=== PATIENT | female | born 1945 | race Asian ===

== ENCOUNTER 2018-03-20 15:30 | Inpatient (IN) | payer MEDICARE, OTHER ==
[~2018-03-20] VITALS: Ht 149.9 cm; Wt 55.5 kg
[~2018-03-20 15:30] MED LIST: ALPR0.5T; ASPI81CH43; LEVO750T2; LISI-275; MECL25TA94; METF500T5; MONT10TA23; TELM80TA
[2018-03-20] MEDS ORDERED: methylPREDNISolone SOD SUCC 125 MG/2 ML VL IM ONE (16:15)
[2018-03-20] MEDS ORDERED: ALBUTEROL SULF 2.5 MG/0.5ML(0.5%) NEB SOLN NEB ONE (16:15)
[2018-03-20] MEDS ORDERED: IPRATROPIUM BROM 0.5 MG/2.5ML INH SOL NEB ONE (16:15)
[2018-03-20] MEDS ORDERED: methylPREDNISolone SOD SUCC 125 MG/2 ML VL ONE (17:02)
[2018-03-20 17:09] LABS: Basophils # (auto) 0 uL; Basophils % (auto) 0.6 % (0.0-2.0); Eosinophils # (auto) 0.2 uL; Eosinophils % (auto) 2.9 % (0.0-7.0); Hematocrit 39.7 % (36.0-46.0); Hemoglobin 13.5 g/dL (12.2-16.2); Lymphocytes % (auto) 12.5 % (10.0-50.0); Mean Corpuscular Hgb Conc. 33.9 g/dL (32.0-36.0); Mean Corpuscular Volume 91.5 fL (80.0-100.0); Monocytes # (auto) 0.7 uL; Monocytes % (auto) 8.7 % (0.0-12.0); Neutrophils # (auto) 5.9 uL; Neutrophils % (auto) 75.3 % (37.0-80.0); Nucleated Red Blood Cells % 0.1 %; Platelet Count (auto) 162 10^3/uL (140-450); Red Blood Cells 4.34 10^6/uL (4.0-5.20); White Blood Cell 7.8 10^3/uL (4.4-10.8)
[2018-03-20 17:17] LABS: Chloride 107 mmol/L (98-107); Potassium 3.6 mmol/L (3.5-5.1); Sodium 142 mmol/L (136-145)
[2018-03-20 17:24] LABS: Alanine Aminotransferase 22 U/L (13-56); Albumin 3.2 g/dL (3.4-5.0); Anion Gap 7 (5-15); Aspartate Aminotransferase 18 U/L (15-37); BUN/Creatinine Ratio 19.6; Blood Urea Nitrogen 20 mg/dL (7-18); Calcium 8.5 mg/dL (8.5-10.1); Carbon Dioxide 28 mmol/L (21-32); GFR African American 68 mL/min; GFR Non-African American 56 mL/min; Glucose 143 mg/dL (74-106)
[2018-03-20 17:28] LABS: Alkaline Phosphatase 64 U/L (45-117); Bilirubin, Total 0.6 mg/dL (0.2-1.0); Total Protein 6.9 g/dL (6.4-8.2)
[2018-03-20] MEDS ORDERED: LEVOFLOXACIN 500MG 100 ML IV ONE (18:30)
[2018-03-20] MEDS ORDERED: DEXTROSE (50%) 50ML SYRG IV PRN (18:45)
[2018-03-20] MEDS ORDERED: DOCUSATE SOD 100 MG CAP PO PRN (18:45)
[2018-03-20] MEDS ORDERED: ONDANSETRON HCL 4 MG/2 ML VIAL IV PRN (18:45)
[2018-03-20] MEDS ORDERED: MORPHINE SULFATE 8mg/ml INJ SDV IV PRN ×2 (18:45)
[2018-03-20] MEDS ORDERED: TEMAZEPAM 15 MG CAP PO PRN (18:45)
[2018-03-20] MEDS ORDERED: NITROGLYCERIN 0.4 MG SL TAB SL PRN (18:45)
[2018-03-20] MEDS ORDERED: HYDROcodone-ACET 5/325MG TAB PO PRN (18:45)
[2018-03-20 20:45] VITALS: BP 153/74
[2018-03-20] MEDS: DONEPEZIL HYDROCHLORIDE 5 MG TAB PO SCH (21:10)
[2018-03-20] MEDS: ATORVASTATIN 20 MG TAB PO SCH (21:10)
[2018-03-20] MEDS: ACCU-CHEK COMFORT CURVE STRIP VI SCH (21:11)
[2018-03-20] MEDS: SODIUM CHLOR 0.9% PF (SALINE LOCK) 10ML VIAL/SYR IV SCH (21:17)
[2018-03-20] MEDS: InsuLIN REG 1unit/0.01ml Soln (100units/ml) SC SCH (21:18)
[2018-03-20] MEDS: ALBUTEROL SULF 2.5 MG/0.5ML(0.5%) NEB SOLN NEB SCH (22:23)
[2018-03-20] MEDS: BUDESONIDE (INHALATION) 0.5 MG/2 ML NEB NEB SCH (22:23)
[2018-03-20] MEDS: IPRATROPIUM BROM 0.5 MG/2.5ML INH SOL NEB SCH (22:23)
[2018-03-20] MEDS: methylPREDNISolone SOD SUCC 40 MG/ML VL IV SCH (23:54)
[2018-03-21] VITALS (8 sets, daily range): BP systolic 107–188; BP diastolic 65–85
[2018-03-21] MEDS ORDERED: ATOR40TA52 PO (00:04)
[2018-03-21] MEDS ORDERED: CLON0.1T PO (00:05)
[2018-03-21] MEDS ORDERED: LOSA25TA9 PO (00:05)
[2018-03-21] MEDS ORDERED: DONE5TAB31 PO (00:05)
[2018-03-21] MEDS: ALBUTEROL SULF 2.5 MG/0.5ML(0.5%) NEB SOLN NEB SCH ×4 (02:17→19:25)
[2018-03-21] MEDS: IPRATROPIUM BROM 0.5 MG/2.5ML INH SOL NEB SCH ×4 (02:17→19:25)
[2018-03-21 05:16] LABS: Urine Bacteria NONE SEEN /hpf (None Seen); Urine Blood Negative /uL (Negative); Urine WBC 1 /hpf (0 - 5)
[2018-03-21 05:58] LABS: Hematocrit 39.4 % (36.0-46.0); Hemoglobin 13.6 g/dL (12.2-16.2); Mean Corpuscular Hemoglobin 31.3 pg (28.0-32.0); Mean Corpuscular Hgb Conc. 34.5 g/dL (32.0-36.0); Mean Corpuscular Volume 90.6 fL (80.0-100.0); Platelet Count (auto) 161 10^3/uL (140-450); Red Blood Cells 4.35 10^6/uL (4.0-5.20); Red Cell Distribution Width 13.3 % (11.8-14.3); White Blood Cell 7.9 10^3/uL (4.4-10.8)
[2018-03-21 06:18] LABS: Band Neutrophils % (manual) 0; Basophils % (manual) 0 (0.0-2.0); Blast Cells 0; Eosinophils % (manual) 0 (0-7); Metamyelocytes % 0; Myelocytes % 0; Promyelocytes % 0; Reactive Lymphocytes 0
[2018-03-21 06:19] LABS: Albumin 3.2 g/dL (3.4-5.0); BUN/Creatinine Ratio 27.4; Bilirubin, Total 0.6 mg/dL (0.2-1.0); Calcium 8.6 mg/dL (8.5-10.1); Potassium 3.6 mmol/L (3.5-5.1); Total Protein 6.9 g/dL (6.4-8.2)
[2018-03-21] MEDS: BUDESONIDE (INHALATION) 0.5 MG/2 ML NEB NEB SCH ×2 (06:21→19:25)
[2018-03-21] MEDS: ACCU-CHEK COMFORT CURVE STRIP VI SCH ×4 (06:22→21:42)
[2018-03-21] MEDS: SODIUM CHLOR 0.9% PF (SALINE LOCK) 10ML VIAL/SYR IV SCH ×3 (06:22→21:43)
[2018-03-21] MEDS: methylPREDNISolone SOD SUCC 40 MG/ML VL IV SCH ×3 (06:22→17:13)
[2018-03-21] MEDS: InsuLIN REG 1unit/0.01ml Soln (100units/ml) SC SCH ×4 (06:27→21:49)
[2018-03-21] MEDS: LOSARTAN POTASSIUM 25 MG TAB PO SCH (09:20)
[2018-03-21] MEDS: MULTIPLE VITAMIN TAB PO SCH (09:21)
[2018-03-21 09:31] LABS: Lymphocytes % (manual) 9 (10.0-50.0); Monocytes % (manual) 1 (0-12)
[2018-03-21] MEDS: Boost Glucose Control 8 Ounces PO SCH ×3 (12:11→18:00)
[2018-03-21] MEDS: ACETAMINOPHEN 325 MG TAB PO PRN (14:46)
[2018-03-21] MEDS ORDERED: LEVOFLOXACIN 250MG 50 ML IV SCH (18:00)
[2018-03-21] MEDS: ATORVASTATIN 20 MG TAB PO SCH (21:39)
[2018-03-21] MEDS: DONEPEZIL HYDROCHLORIDE 5 MG TAB PO SCH (21:40)
[2018-03-21] MEDS: predniSONE 20 MG TAB PO SCH (21:40)
[2018-03-21] MEDS: cloNIDine HCL 0.1 MG TAB PO PRN (21:41)
[2018-03-22 05:14] VITALS: BP 154/69
[2018-03-22] MEDS: BUDESONIDE (INHALATION) 0.5 MG/2 ML NEB NEB SCH ×3 (06:22→18:59)
[2018-03-22] MEDS: IPRATROPIUM BROM 0.5 MG/2.5ML INH SOL NEB SCH ×5 (06:22→18:58)
[2018-03-22] MEDS: ALBUTEROL SULF 2.5 MG/0.5ML(0.5%) NEB SOLN NEB SCH ×5 (06:22→18:59)
[2018-03-22] MEDS: SODIUM CHLOR 0.9% PF (SALINE LOCK) 10ML VIAL/SYR IV SCH ×3 (06:26→22:00)
[2018-03-22] MEDS: InsuLIN REG 1unit/0.01ml Soln (100units/ml) SC SCH ×4 (06:26→22:12)
[2018-03-22] MEDS: ACCU-CHEK COMFORT CURVE STRIP VI SCH ×4 (06:26→22:00)
[2018-03-22 08:00] VITALS: BP 127/65
[2018-03-22] MEDS: Boost Glucose Control 8 Ounces PO SCH ×3 (08:00→18:10)
[2018-03-22 09:00] VITALS: BP 127/65
[2018-03-22] MEDS: predniSONE 20 MG TAB PO SCH ×2 (09:54→22:10)
[2018-03-22] MEDS: LOSARTAN POTASSIUM 25 MG TAB PO SCH (09:57)
[2018-03-22] MEDS: MULTIPLE VITAMIN TAB PO SCH (09:57)
[2018-03-22] MEDS ORDERED: LEVOFLOXACIN 500 MG TAB PO SCH (10:00)
[2018-03-22] MEDS ORDERED: LEVOFLOXACIN 500 MG TAB PO ONE (12:00)
[2018-03-22 13:00] VITALS: BP 179/78
[2018-03-22 17:00] VITALS: BP 165/94
[2018-03-22] MEDS: guaiFENesin 200 MG/10 ML UD GT SCH ×2 (18:00→23:14)
[2018-03-22] MEDS: cloNIDine HCL 0.1 MG TAB PO PRN (18:17)
[2018-03-22 20:59] VITALS: BP 129/63
[2018-03-22] MEDS: ATORVASTATIN 20 MG TAB PO SCH (21:53)
[2018-03-22] MEDS: DONEPEZIL HYDROCHLORIDE 5 MG TAB PO SCH (21:53)
[2018-03-23 04:52] VITALS: BP 147/73
[2018-03-23] MEDS: InsuLIN REG 1unit/0.01ml Soln (100units/ml) SC SCH ×3 (05:49→17:00)
[2018-03-23] MEDS: SODIUM CHLOR 0.9% PF (SALINE LOCK) 10ML VIAL/SYR IV SCH ×2 (05:51→14:13)
[2018-03-23] MEDS: ALBUTEROL SULF 2.5 MG/0.5ML(0.5%) NEB SOLN NEB SCH ×3 (06:18→14:08)
[2018-03-23] MEDS: IPRATROPIUM BROM 0.5 MG/2.5ML INH SOL NEB SCH ×3 (06:18→14:08)
[2018-03-23] MEDS: BUDESONIDE (INHALATION) 0.5 MG/2 ML NEB NEB SCH (06:19)
[2018-03-23] MEDS: ACCU-CHEK COMFORT CURVE STRIP VI SCH ×3 (06:30→17:00)
[2018-03-23] MEDS: guaiFENesin 200 MG/10 ML UD GT SCH ×4 (06:33→18:00)
[2018-03-23 09:00] VITALS: BP 145/79
[2018-03-23] MEDS ORDERED: LEVOFLOXACIN 500 MG TAB PO SCH (10:00)
[2018-03-23] MEDS: predniSONE 20 MG TAB PO SCH (10:07)
[2018-03-23] MEDS: LOSARTAN POTASSIUM 25 MG TAB PO SCH (10:08)
[2018-03-23] MEDS: MULTIPLE VITAMIN TAB PO SCH (10:09)
[2018-03-23] MEDS: ACETAMINOPHEN 325 MG TAB PO PRN ×2 (10:10→12:22)
[2018-03-23] MEDS: Boost Glucose Control 8 Ounces PO SCH ×3 (10:42→18:23)
[2018-03-23 12:32] VITALS: BP 147/78
[2018-03-23 17:05] VITALS: BP 153/87
[2018-03-23 17:18] VITALS: BP 145/79
== END 2018-03-23 18:10 | disposition home or self-care (01) | DRG 202 ==
LOC: ER 15:30 → TELE 15:31 → TELE-WESTW 20:40
PROVIDERS: ADMIT Internal Medicine; ATTEND Internal Medicine Pulmonary Disease
DX: J45.901 Unspecified asthma with (acute) exacerbation (principal); E44.0 Moderate protein-calorie malnutrition; E11.21 Type 2 diabetes mellitus with diabetic nephropathy; J20.9 Acute bronchitis, unspecified; R91.1 Solitary pulmonary nodule; E11.22 Type 2 diabetes mellitus with diabetic chronic kidney disease; E78.5 Hyperlipidemia, unspecified; N18.3 Chronic kidney disease, stage 3 (moderate); I11.9 Hypertensive heart disease without heart failure; I70.0 Atherosclerosis of aorta; I25.10 Atherosclerotic heart disease of native coronary artery without angina pectoris; Z95.5 Presence of coronary angioplasty implant and graft; Z68.24 Body mass index [BMI] 24.0-24.9, adult; Z83.3 Family history of diabetes mellitus; Z90.722 Acquired absence of ovaries, bilateral; Z88.1 Allergy status to other antibiotic agents; Z82.49 Family history of ischemic heart disease and other diseases of the circulatory system
CPT/HCPCS: 36415; 71046; 71250; 80053; 81001; 82962; 83036; 84443; 84484; 85007; 85025; 85027; 87070; 87077; 87186; 87205; 93005; 93306; 94640; 94761; 96365; 96367; 96375; 99291; J1815; J1956

== ENCOUNTER 2021-09-01 10:46 | Inpatient (IN) | payer MEDICARE, OTHER ==
[~2021-09-01] VITALS: Ht 144.8 cm; Wt 50.5 kg
[~2021-09-01 10:46] MED LIST changes: -ALPR0.5T; -ASPI81CH43; +ATOR40TA52 PO; +CLON0.1T PO; +DONE5TAB80 PO; -LEVO750T2; -LISI-275; +LOSA25TA38 PO; -MECL25TA94; +METF-916; -METF500T5; -MONT10TA23; -TELM80TA
[2021-09-01 12:27] LABS: Basophils # (auto) 0.1 10 ^3/uL (0-0.2); Basophils % (auto) 0.7 % (0.0-2.0); Eosinophils # (auto) 0.4 10 ^3/uL (0-0.8); Hematocrit 40.6 % (36.0-46.0); Hemoglobin 14.1 g/dL (12.2-16.2); Lymphocytes # (auto) 1.6 10 ^3/uL (0.4-5.4); Lymphocytes % (auto) 21.6 % (10.0-50.0); Mean Corpuscular Hemoglobin 31.7 pg (28.0-32.0); Mean Corpuscular Hgb Conc. 34.8 g/dL (32.0-36.0); Mean Corpuscular Volume 91.1 fL (80.0-100.0); Monocytes # (auto) 1.1 10 ^3/uL (0-1.3); Monocytes % (auto) 15.5 % (0.0-12.0); Neutrophils # (auto) 4.1 10 ^3/uL (1.6-8.6); Neutrophils % (auto) 56.2 % (37.0-80.0); Nucleated Red Blood Cells % 0.1 %; Red Blood Cells 4.46 10^6/uL (4.0-5.20); Red Cell Distribution Width 12.8 % (11.8-14.3); White Blood Cell 7.3 10^3/uL (4.4-10.8)
[2021-09-01 12:37] LABS: Albumin 3.3 g/dL (3.4-5.0); Calcium 8.4 mg/dL (8.5-10.1); Potassium 3.2 mmol/L (3.5-5.1)
[2021-09-01 12:42] LABS: Bilirubin, Total 0.6 mg/dL (0.2-1.0); Total Protein 7.8 g/dL (6.4-8.2)
[2021-09-01] MEDS ORDERED: NITROGLYCERIN 0.4 MG SL TAB SL PRN ×2 (15:30→16:45)
[2021-09-01] MEDS ORDERED: MORPHINE SULFATE INJECTION 2 MG/ML SYRG IV PRN ×3 (15:30→16:45)
[2021-09-01] MEDS ORDERED: POTASSIUM CHLORIDE 40 MEQ, LIDOCAINE 1% (LOCAL ANESTH.) 4 ML in SODIUM CHL 0.9% 250 ML IV ONE (15:30)
[2021-09-01] MEDS ORDERED: MAGNESIUM SULFATE 1GM/100ML 100 ML IV ONE (15:30)
[2021-09-01] MEDS ORDERED: ENOXAPARIN SOD 60 MG/0.6 ML SYRINGE SC ONE (16:00)
[2021-09-01] MEDS ORDERED: LORazepam 0.5 MG TAB PO PRN (16:45)
[2021-09-01] MEDS ORDERED: REMDESIVIR PER PHARMACY 0 ML IV SCH (16:45)
[2021-09-01] MEDS ORDERED: BUDESONIDE (INHALATION) 0.5 MG/2 ML NEB NEB ONE (16:45)
[2021-09-01] MEDS ORDERED: DOCUSATE SOD 100 MG CAP PO PRN (16:45)
[2021-09-01] MEDS ORDERED: ALBUTEROL SULF 2.5 MG/0.5ML(0.5%) NEB SOLN NEB ONE (16:45)
[2021-09-01] MEDS ORDERED: HYDROcodone-ACET 5/325MG TAB PO PRN (16:45)
[2021-09-01] MEDS ORDERED: IPRATROPIUM BROM 0.5 MG/2.5ML INH SOL NEB ONE (16:45)
[2021-09-01] MEDS ORDERED: ONDANSETRON HCL 4 MG/2 ML VIAL IV PRN (16:45)
[2021-09-01] MEDS ORDERED: ALUM & MAG HYDROX-SIMETH LIQ(MAALOX) 30 ML PO PRN (16:45)
[2021-09-01] MEDS ORDERED: ALBUTEROL SULF 2.5 MG/0.5ML(0.5%) NEB SOLN NEB PRN (16:45)
[2021-09-01] MEDS ORDERED: ACETAMINOPHEN 325 MG TAB PO PRN (16:45)
[2021-09-01] MEDS ORDERED: AZITHROMYCIN 500MG/ 250ML 250 ML IV ONE (16:45)
[2021-09-01] MEDS ORDERED: SODIUM CHLORIDE 0.9% 1,000 ML IV SCH (17:00)
[2021-09-01] MEDS ORDERED: FAMOTIDINE (10MG/ML) 2ML VL IV ONE (17:00)
[2021-09-01] MEDS ORDERED: ATORVASTATIN 20 MG TAB PO ONE (17:00)
[2021-09-01] MEDS ORDERED: ASPirin 81 mg TAB PO ONE (17:00)
[2021-09-01] MEDS ORDERED: DEXTROSE (50%) 50ML SYRG IV PRN (17:00)
[2021-09-01] MEDS ORDERED: ALBUMIN 25% 100 ML IV ONE (17:00)
[2021-09-01] MEDS ORDERED: hydrALAZINE HCL 20 MG/ML VL IV PRN (17:00)
[2021-09-01] MEDS ORDERED: IPRATROPIUM BROM 0.5 MG/2.5ML INH SOL NEB SCH (18:00)
[2021-09-01] MEDS ORDERED: REMDESIVIR 200 MG in NS 210ml LOADING DOSE ADULT IV ONE (18:30)
[2021-09-01] MEDS: ACCU-CHEK COMFORT CURVE STRIP VI SCH ×2 (18:33→22:18)
[2021-09-01] MEDS: InsuLIN REG 1unit/0.01ml Soln (100units/ml) SC SCH ×2 (18:36→22:18)
[2021-09-01 18:59] LABS: Basophils # (auto) 0.1 10 ^3/uL (0-0.2); Eosinophils # (auto) 0.5 10 ^3/uL (0-0.8); Eosinophils % (auto) 6.3 % (0.0-7.0); Hematocrit 40.5 % (36.0-46.0); Hemoglobin 13.9 g/dL (12.2-16.2); Lymphocytes # (auto) 1.4 10 ^3/uL (0.4-5.4); Lymphocytes % (auto) 19.2 % (10.0-50.0); Mean Corpuscular Hemoglobin 31.1 pg (28.0-32.0); Mean Corpuscular Hgb Conc. 34.4 g/dL (32.0-36.0); Mean Corpuscular Volume 90.4 fL (80.0-100.0); Monocytes % (auto) 12.9 % (0.0-12.0); Neutrophils # (auto) 4.5 10 ^3/uL (1.6-8.6); Neutrophils % (auto) 60.6 % (37.0-80.0); Nucleated Red Blood Cells % 0.2 %; Red Blood Cells 4.48 10^6/uL (4.0-5.20); Red Cell Distribution Width 12.9 % (11.8-14.3); White Blood Cell 7.4 10^3/uL (4.4-10.8)
[2021-09-01 19:17] LABS: Albumin 3.3 g/dL (3.4-5.0)
[2021-09-01 19:23] LABS: Cholesterol 141 mg/dL (< 200); HDL Cholesterol 68 mg/dL (40-59); LDL Cholesterol 67 mg/dL (< 100); Triglycerides 88 mg/dL (< 150)
[2021-09-01 19:25] LABS: Bilirubin, Total 0.7 mg/dL (0.2-1.0); CRP High Sensitivity 2.81 mg/dL (< 0.3); Total Protein 7.6 g/dL (6.4-8.2)
[2021-09-01 19:31] LABS: Urine Bacteria NONE SEEN /hpf (None Seen); Urine Blood Negative /uL (Negative); Urine Hyaline Cast FEW /lpf (0 - 2); Urine WBC 1 /hpf (0 - 5)
[2021-09-01 19:44] LABS: Potassium 2.9 mmol/L (3.5-5.1)
[2021-09-01] MEDS: FUROSEMIDE 20 MG/2 ML VIAL IV SCH (19:47)
[2021-09-01 19:50] LABS: Alcohol, Urine < 3.0 mg/dL (0-10); Amphetamine Screen, Urine NEGATIVE (NEGATIVE); Barbiturate Scree,Urine NEGATIVE (NEGATIVE); Benzodiazephine Screen, Urine NEGATIVE (NEGATIVE); Cannabinoid Screen, Urine NEGATIVE (NEGATIVE); Cocaine Screen, Urine NEGATIVE (NEGATIVE); Opiate Scree,Urine NEGATIVE (NEGATIVE); Phencyclidine Screen, Urine NEGATIVE (NEGATIVE)
[2021-09-01 20:09] LABS: Thyroid Stimulating Hormone 0.34 uIU/mL (0.358-3.74)
[2021-09-01] MEDS ORDERED: BUDESONIDE (INHALATION) 0.5 MG/2 ML NEB NEB SCH (22:00)
[2021-09-01] MEDS: POTASSIUM CHL 20 Meq TABLET PO SCH (22:17)
[2021-09-02] VITALS (7 sets, daily range): BP systolic 116–156; BP diastolic 64–91
[2021-09-02] MEDS ORDERED: ATOR20TA PO (04:57)
[2021-09-02] MEDS ORDERED: AMLO-489 PO (04:57)
[2021-09-02] MEDS: FUROSEMIDE 20 MG/2 ML VIAL IV SCH (05:28)
[2021-09-02] MEDS: ACCU-CHEK COMFORT CURVE STRIP VI SCH ×4 (05:29→21:28)
[2021-09-02] MEDS ORDERED: FAMOTIDINE (10MG/ML) 2ML VL IV SCH (06:00)
[2021-09-02] MEDS: InsuLIN REG 1unit/0.01ml Soln (100units/ml) SC SCH ×4 (06:47→21:28)
[2021-09-02 07:15] LABS: Potassium 3.6 mmol/L (3.5-5.1)
[2021-09-02 07:27] LABS: Albumin 3.4 g/dL (3.4-5.0); BUN/Creatinine Ratio 17.5; Basophils # (auto) 0 10 ^3/uL (0-0.2); Basophils % (auto) 0.6 % (0.0-2.0); Bilirubin, Total 0.5 mg/dL (0.2-1.0); Calcium 8.3 mg/dL (8.5-10.1); Eosinophils # (auto) 0.2 10 ^3/uL (0-0.8); Eosinophils % (auto) 4.2 % (0.0-7.0); Hematocrit 38.6 % (36.0-46.0); Hemoglobin 13.1 g/dL (12.2-16.2); Lymphocytes # (auto) 0.9 10 ^3/uL (0.4-5.4); Lymphocytes % (auto) 15.6 % (10.0-50.0); Magnesium 2.6 mg/dL (1.6-2.6); Mean Corpuscular Hemoglobin 30.6 pg (28.0-32.0); Mean Corpuscular Hgb Conc. 33.9 g/dL (32.0-36.0); Mean Corpuscular Volume 90.3 fL (80.0-100.0); Monocytes # (auto) 0.6 10 ^3/uL (0-1.3); Monocytes % (auto) 10.9 % (0.0-12.0); Neutrophils % (auto) 68.7 % (37.0-80.0); Nucleated Red Blood Cells % 0.3 %; Phosphorus 2.8 mg/dL (2.5-4.90); Red Blood Cells 4.27 10^6/uL (4.0-5.20); Red Cell Distribution Width 12.8 % (11.8-14.3); Total Protein 6.7 g/dL (6.4-8.2); White Blood Cell 5.9 10^3/uL (4.4-10.8)
[2021-09-02] MEDS: AZITHROMYCIN 500MG/ 250ML 250 ML IV SCH (09:13)
[2021-09-02] MEDS: BENAZEPRIL HCL 10 MG TAB PO SCH (09:14)
[2021-09-02] MEDS: POTASSIUM CHL 20 Meq TABLET PO SCH (09:14)
[2021-09-02] MEDS: ASPirin 81 mg TAB PO SCH (09:14)
[2021-09-02] MEDS: ENOXAPARIN SOD 60 MG/0.6 ML SYRINGE SC SCH (09:15)
[2021-09-02] MEDS ORDERED: DexAMETHasone SOD PHOS 10MG/1ML VIAL INJ IV ONE (11:30)
[2021-09-02] MEDS ORDERED: PROMETHAZINE W/CODEINE 5 ML ORAL SYRUP PO PRN (11:45)
[2021-09-02] MEDS: REMDESIVIR 100mg 100 MG in SODIUM CHL 0.9% 230 ML IV SCH (14:50)
[2021-09-02] MEDS: BUDESONIDE (INHALATION) 0.5 MG/2 ML NEB NEB SCH (20:37)
[2021-09-02] MEDS: ATORVASTATIN 20 MG TAB PO SCH (21:21)
[2021-09-03 00:10] VITALS: BP 134/66
[2021-09-03 05:00] VITALS: BP 142/79
[2021-09-03] MEDS: ACCU-CHEK COMFORT CURVE STRIP VI SCH ×4 (06:04→21:23)
[2021-09-03] MEDS: InsuLIN REG 1unit/0.01ml Soln (100units/ml) SC SCH ×4 (06:04→21:25)
[2021-09-03 06:20] LABS: Basophils # (auto) 0 10 ^3/uL (0-0.2); Basophils % (auto) 0.1 % (0.0-2.0); Eosinophils # (auto) 0 10 ^3/uL (0-0.8); Hematocrit 39.7 % (36.0-46.0); Hemoglobin 13.8 g/dL (12.2-16.2); Lymphocytes # (auto) 0.9 10 ^3/uL (0.4-5.4); Lymphocytes % (auto) 17.5 % (10.0-50.0); Mean Corpuscular Hemoglobin 31.5 pg (28.0-32.0); Mean Corpuscular Hgb Conc. 34.8 g/dL (32.0-36.0); Mean Corpuscular Volume 90.3 fL (80.0-100.0); Monocytes # (auto) 0.3 10 ^3/uL (0-1.3); Monocytes % (auto) 5.9 % (0.0-12.0); Neutrophils # (auto) 3.8 10 ^3/uL (1.6-8.6); Neutrophils % (auto) 76.5 % (37.0-80.0); Nucleated Red Blood Cells % 0.1 %; Red Cell Distribution Width 12.8 % (11.8-14.3)
[2021-09-03 06:31] LABS: Potassium 3.9 mmol/L (3.5-5.1)
[2021-09-03 06:33] LABS: INR 1.05 (0.9-1.15); Partial Thromboplastin Time 29.9 sec (23.6-33.0)
[2021-09-03 06:39] LABS: Albumin 3.7 g/dL (3.4-5.0); Bilirubin, Total 0.5 mg/dL (0.2-1.0); Calcium 8.7 mg/dL (8.5-10.1); Total Protein 7.8 g/dL (6.4-8.2)
[2021-09-03 09:00] VITALS: BP 131/66
[2021-09-03] MEDS: BENAZEPRIL HCL 10 MG TAB PO SCH (09:36)
[2021-09-03] MEDS: ASPirin 81 mg TAB PO SCH (09:36)
[2021-09-03] MEDS: DexAMETHasone SOD PHOS 10MG/1ML VIAL INJ IV SCH (09:37)
[2021-09-03] MEDS: ENOXAPARIN SOD 60 MG/0.6 ML SYRINGE SC SCH (09:37)
[2021-09-03] MEDS: BUDESONIDE (INHALATION) 0.5 MG/2 ML NEB NEB SCH ×2 (09:37→19:36)
[2021-09-03] MEDS: AZITHROMYCIN 500MG/ 250ML 250 ML IV SCH (09:37)
[2021-09-03 13:00] VITALS: BP 139/74
[2021-09-03] MEDS ORDERED: fentaNYL CITRATE 100 MCG/2 ML VL ONE ×2 (14:10)
[2021-09-03] MEDS ORDERED: HEPARIN SODIUM (PORCINE) 5000 UNITS/ML 1ML VIAL ONE ×2 (14:10)
[2021-09-03] MEDS ORDERED: VERAPAMIL 2.5MG/ML INJ 2ML VIAL IV ONE ×2 (14:10)
[2021-09-03] MEDS ORDERED: ANGIOMAX 250 MG VIAL IV ONE ×2 (14:10)
[2021-09-03] MEDS ORDERED: MIDAZOLAM HCL 2MG/2ML 2ml VIAL (1mg/ml) ONE ×2 (14:11)
[2021-09-03] MEDS ORDERED: SODIUM CHL 0.9% 0 ML ONE (14:11)
[2021-09-03] MEDS ORDERED: SODIUM CHL 0.9% 50 ML ONE (14:11)
[2021-09-03] MEDS ORDERED: IODIXANOL 320MG/ML 100ML BTL IV ONE (14:18)
[2021-09-03] MEDS ORDERED: LIDOCAINE 2%HCL (LOCAL ANESTH.) INJ 20ML MDV ONE (14:18)
[2021-09-03] MEDS: REMDESIVIR 100mg 100 MG in SODIUM CHL 0.9% 230 ML IV SCH (15:57)
[2021-09-03 17:00] VITALS: BP 134/74
[2021-09-03] MEDS: ATORVASTATIN 20 MG TAB PO SCH (21:16)
[2021-09-03 21:38] VITALS: BP 126/66
[2021-09-04 05:06] VITALS: BP_SYST 127; BP_SYST 140; BP_DIAS 74; BP_DIAS 84
[2021-09-04] MEDS: ACCU-CHEK COMFORT CURVE STRIP VI SCH ×4 (06:05→22:03)
[2021-09-04] MEDS: InsuLIN REG 1unit/0.01ml Soln (100units/ml) SC SCH ×4 (06:09→22:18)
[2021-09-04 06:34] LABS: Basophils # (auto) 0 10 ^3/uL (0-0.2); Eosinophils # (auto) 0 10 ^3/uL (0-0.8); Hematocrit 36.5 % (36.0-46.0); Hemoglobin 12.6 g/dL (12.2-16.2); Lymphocytes # (auto) 0.9 10 ^3/uL (0.4-5.4); Lymphocytes % (auto) 9.2 % (10.0-50.0); Mean Corpuscular Hemoglobin 31.2 pg (28.0-32.0); Mean Corpuscular Hgb Conc. 34.5 g/dL (32.0-36.0); Mean Corpuscular Volume 90.4 fL (80.0-100.0); Monocytes # (auto) 0.5 10 ^3/uL (0-1.3); Monocytes % (auto) 5.3 % (0.0-12.0); Neutrophils # (auto) 7.9 10 ^3/uL (1.6-8.6); Neutrophils % (auto) 85.5 % (37.0-80.0); Red Blood Cells 4.04 10^6/uL (4.0-5.20); Red Cell Distribution Width 12.7 % (11.8-14.3); White Blood Cell 9.3 10^3/uL (4.4-10.8)
[2021-09-04 06:53] LABS: Potassium 4.1 mmol/L (3.5-5.1)
[2021-09-04 07:02] LABS: BUN/Creatinine Ratio 34.3; Bilirubin, Total 0.4 mg/dL (0.2-1.0); Total Protein 6.3 g/dL (6.4-8.2)
[2021-09-04 08:00] VITALS: BP 110/58
[2021-09-04 09:00] VITALS: BP_SYST 110; BP_SYST 126; BP_DIAS 58; BP_DIAS 61
[2021-09-04] MEDS: DexAMETHasone SOD PHOS 10MG/1ML VIAL INJ IV SCH (10:24)
[2021-09-04] MEDS: ASPirin 81 mg TAB PO SCH (10:24)
[2021-09-04] MEDS: AZITHROMYCIN 500MG/ 250ML 250 ML IV SCH (10:24)
[2021-09-04] MEDS: BENAZEPRIL HCL 10 MG TAB PO SCH (10:25)
[2021-09-04] MEDS: ENOXAPARIN SOD 60 MG/0.6 ML SYRINGE SC SCH (10:25)
[2021-09-04 13:00] VITALS: BP 118/66
[2021-09-04] MEDS: BUDESONIDE (INHALATION) 0.5 MG/2 ML NEB NEB SCH ×2 (14:50→21:47)
[2021-09-04] MEDS: REMDESIVIR 100mg 100 MG in SODIUM CHL 0.9% 230 ML IV SCH (15:15)
[2021-09-04 17:00] VITALS: BP 121/65
[2021-09-04 22:00] VITALS: BP 137/73
[2021-09-04] MEDS: ATORVASTATIN 20 MG TAB PO SCH (22:03)
[2021-09-05 05:00] VITALS: BP 142/73
[2021-09-05 05:55] LABS: Basophils # (auto) 0 10 ^3/uL (0-0.2); Eosinophils # (auto) 0 10 ^3/uL (0-0.8); Hematocrit 38.2 % (36.0-46.0); Hemoglobin 13.1 g/dL (12.2-16.2); Lymphocytes # (auto) 1.3 10 ^3/uL (0.4-5.4); Lymphocytes % (auto) 13.4 % (10.0-50.0); Mean Corpuscular Hemoglobin 31.3 pg (28.0-32.0); Mean Corpuscular Hgb Conc. 34.4 g/dL (32.0-36.0); Mean Corpuscular Volume 90.9 fL (80.0-100.0); Monocytes # (auto) 0.6 10 ^3/uL (0-1.3); Monocytes % (auto) 5.8 % (0.0-12.0); Neutrophils # (auto) 7.7 10 ^3/uL (1.6-8.6); Neutrophils % (auto) 80.8 % (37.0-80.0); Red Cell Distribution Width 12.8 % (11.8-14.3); White Blood Cell 9.6 10^3/uL (4.4-10.8)
[2021-09-05 06:15] LABS: Potassium 3.8 mmol/L (3.5-5.1)
[2021-09-05] MEDS: ACCU-CHEK COMFORT CURVE STRIP VI SCH ×2 (06:17→11:00)
[2021-09-05] MEDS: InsuLIN REG 1unit/0.01ml Soln (100units/ml) SC SCH ×3 (06:18→11:35)
[2021-09-05 06:19] LABS: Albumin 3.1 g/dL (3.4-5.0); BUN/Creatinine Ratio 36.9; Calcium 8.4 mg/dL (8.5-10.1)
[2021-09-05 06:34] LABS: Bilirubin, Total 0.4 mg/dL (0.2-1.0); Total Protein 6.4 g/dL (6.4-8.2)
[2021-09-05] MEDS: BUDESONIDE (INHALATION) 0.5 MG/2 ML NEB NEB SCH (06:43)
[2021-09-05 08:15] VITALS: BP 142/72
[2021-09-05 09:00] VITALS: BP 142/72
[2021-09-05] MEDS: ENOXAPARIN SOD 60 MG/0.6 ML SYRINGE SC SCH (10:23)
[2021-09-05] MEDS: DexAMETHasone SOD PHOS 10MG/1ML VIAL INJ IV SCH (10:23)
[2021-09-05] MEDS: ASPirin 81 mg TAB PO SCH (10:23)
[2021-09-05] MEDS: AZITHROMYCIN 500MG/ 250ML 250 ML IV SCH (10:24)
[2021-09-05] MEDS: BENAZEPRIL HCL 10 MG TAB PO SCH (10:31)
== END 2021-09-05 13:20 | disposition home or self-care (01) | DRG 177 ==
LOC: ER 10:46 → TELE 15:22 → TELE-E-ADS 09-02 03:08 → TELE-EAST 09-02 03:09
PROVIDERS: ADMIT Hospitalist; ATTEND Internal Medicine
PROC: XW033E5 Introduction of Remdesivir Anti-infective into Peripheral Vein, Percutaneous Approach, New Technology Group 5 (ICD-10-PCS; 2021-09-01)
PROC: 4A023N7 Measurement of Cardiac Sampling and Pressure, Left Heart, Percutaneous Approach (ICD-10-PCS; principal; 2021-09-03)
PROC: B211YZZ Fluoroscopy of Multiple Coronary Arteries using Other Contrast (ICD-10-PCS; 2021-09-03)
PROC: B215YZZ Fluoroscopy of Left Heart using Other Contrast (ICD-10-PCS; 2021-09-03)
DX: U07.1 COVID-19 (principal); J96.21 Acute and chronic respiratory failure with hypoxia; J12.82 Pneumonia due to coronavirus disease 2019; I21.4 Non-ST elevation (NSTEMI) myocardial infarction; J45.901 Unspecified asthma with (acute) exacerbation; J44.0 Chronic obstructive pulmonary disease with (acute) lower respiratory infection; N17.9 Acute kidney failure, unspecified; E87.6 Hypokalemia; E88.09 Other disorders of plasma-protein metabolism, not elsewhere classified; I12.9 Hypertensive chronic kidney disease with stage 1 through stage 4 chronic kidney disease, or unspecified chronic kidney disease; I25.10 Atherosclerotic heart disease of native coronary artery without angina pectoris; N18.31 Chronic kidney disease, stage 3a; E11.22 Type 2 diabetes mellitus with diabetic chronic kidney disease; E78.5 Hyperlipidemia, unspecified; Z79.82 Long term (current) use of aspirin; Z79.899 Other long term (current) drug therapy; Z79.84 Long term (current) use of oral hypoglycemic drugs; Z82.49 Family history of ischemic heart disease and other diseases of the circulatory system; Z82.5 Family history of asthma and other chronic lower respiratory diseases; Z83.3 Family history of diabetes mellitus; Z98.61 Coronary angioplasty status; Z88.8 Allergy status to other drugs, medicaments and biological substances
CPT/HCPCS: 36415; 71045; 71046; 80053; 80061; 80307; 81001; 82306; 82728; 82962; 83036; 83605; 83615; 83735; 83880; 83970; 84100; 84443; 84484; 85025; 85379; 85610; 85730; 86141; 86850; 86900; 86901; 87040; 87086; 87426; 93005; 93306; 93458; 94640; 96361; 96372; 96374; 99152; G0378; J1100; J1815; J2001; J2250; J3490; P9047; Q9967

== ENCOUNTER 2023-06-02 07:38 | Inpatient (IN) | payer OTHER ==
[~2023-06-02] VITALS: Ht 152.4 cm; Wt 53.6 kg
[~2023-06-02 07:38] MED LIST changes: +AMLO1TAB22 PO; +ATOR20TA PO; -ATOR40TA52 PO; +LOSA25TA15 PO; -LOSA25TA38 PO; +METF-1145; -METF-916
[2023-06-02] MEDS ORDERED: SODIUM CHLORIDE 0.9% 1,000 ML IV ONE (08:15)
[2023-06-02] MEDS ORDERED: InsuLIN REG 1unit/0.01ml Soln (100units/ml) IV ONE (08:15)
[2023-06-02 08:48] LABS: Basophils # (auto) 0.1 10 ^3/uL (0-0.2); Basophils % (auto) 0.4 % (0.0-2.0); Eosinophils # (auto) 0 10 ^3/uL (0-0.8); Hematocrit 39.3 % (36.0-46.0); Hemoglobin 13.3 g/dL (12.2-16.2); Lymphocytes # (auto) 0.6 10 ^3/uL (0.4-5.4); Mean Corpuscular Hemoglobin 30.7 pg (28.0-32.0); Mean Corpuscular Hgb Conc. 33.8 g/dL (32.0-36.0); Mean Corpuscular Volume 90.9 fL (80.0-100.0); Monocytes # (auto) 0.3 10 ^3/uL (0-1.3); Monocytes % (auto) 2.2 % (0.0-12.0); Neutrophils # (auto) 13.8 10 ^3/uL (1.6-8.6); Neutrophils % (auto) 93.4 % (37.0-80.0); Red Blood Cells 4.33 10^6/uL (4.0-5.20); Red Cell Distribution Width 13.6 % (11.8-14.3); White Blood Cell 14.8 10^3/uL (4.4-10.8)
[2023-06-02 08:53] LABS: Albumin 2.8 g/dL (3.4-5.0); Calcium 9.2 mg/dL (8.5-10.1); Magnesium 2.5 mg/dL (1.6-2.6); Potassium 4.4 mmol/L (3.5-5.1)
[2023-06-02 09:02] LABS: BUN/Creatinine Ratio 23.5 (10.0-20.0); Bilirubin, Total 0.7 mg/dL (0.2-1.0); Total Protein 7.2 g/dL (6.4-8.2)
[2023-06-02 09:50] VITALS: PULSE 59; RESP 16; O2SAT 94
[2023-06-02 10:13] LABS: Urine Bacteria NONE SEEN /hpf (None Seen); Urine Blood Negative /uL (Negative); Urine Clarity Clear (Clear); Urine Color Colorless (Yellow); Urine Protein, UAD Negative (Negative); Urine Specific Gravity 1.032 (1.001-1.035); Urine Urobilinogen Normal (Negative); Urine WBC 8 /hpf (0 - 5)
[2023-06-02] MEDS ORDERED: hydrALAZINE HCL 20 MG/ML VL IV PRN (11:45)
[2023-06-02] MEDS ORDERED: ONDANSETRON HCL 4 MG/2 ML VIAL IV PRN (11:45)
[2023-06-02] MEDS ORDERED: MORPHINE SULFATE INJ 2 MG/ml SYRG IV PRN (11:45)
[2023-06-02] MEDS ORDERED: DOCUSATE SOD 100 MG CAP PO PRN (11:45)
[2023-06-02] MEDS ORDERED: DEXTROSE (50%) 50ML SYRG IV PRN (11:45)
[2023-06-02] MEDS ORDERED: IOHEXOL 300 MG/ML 100ML BOTTLE IJ ONE (12:04)
[2023-06-02] MEDS ORDERED: VANCOMYCIN PER PHARMACY 0 MG IV SCH (12:15)
[2023-06-02] MEDS: SODIUM CHLORIDE 0.9% 1,000 ML IV SCH ×2 (12:30→22:56)
[2023-06-02] MEDS ORDERED: cefTRIAXone 1GM/50ML D5W 50 ML IV ONE (12:45)
[2023-06-02 13:31] LABS: INR 0.94 (0.9-1.15); Prothrombin Time 10.1 sec (9.3-11.8)
[2023-06-02 14:06] VITALS: PULSE 70; RESP 20; O2SAT 98
[2023-06-02] MEDS ORDERED: VANCOMYCIN 1GM/250ML 250 ML IV ONE (14:30)
[2023-06-02] MEDS ORDERED: PIPERACILLIN-TAZOB 3.375GM 100 ML IV SCH (14:55)
[2023-06-02] MEDS: InsuLIN REG 1unit/0.01ml Soln (100units/ml) SC SCH ×2 (17:16→22:54)
[2023-06-02] MEDS: ACCU-CHEK COMFORT CURVE STRIP VI SCH ×2 (17:17→22:54)
[2023-06-02] MEDS ORDERED: PIPERACILLIN-TAZOB 3.375GM 100 ML IV ONE (18:15)
[2023-06-02 19:20] VITALS: PULSE 68; RESP 12; O2SAT 94
[2023-06-02] MEDS: IPRATROPIUM BROM 0.5 MG/2.5ML INH SOL NEB SCH (19:51)
[2023-06-02] MEDS: ALBUTEROL SULF 2.5 MG/0.5ML(0.5%) NEB SOLN NEB PRN (19:52)
[2023-06-02 19:53] VITALS: PULSE 82; RESP 18; O2SAT 94
[2023-06-02 20:03] VITALS: PULSE 80; RESP 18; O2SAT 99
[2023-06-02] MEDS: cloNIDine HCL 0.1 MG TAB PO SCH (22:57)
[2023-06-03] VITALS (17 sets, daily range): BP systolic 100–138; BP diastolic 49–63; PULSE 50–69; RESP 14–95; TEMP 97.4–98.7; O2SAT 93–100
[2023-06-03] MEDS: IPRATROPIUM BROM 0.5 MG/2.5ML INH SOL NEB SCH ×4 (00:12→19:33)
[2023-06-03] MEDS: ALBUTEROL SULF 2.5 MG/0.5ML(0.5%) NEB SOLN NEB PRN ×2 (00:12→19:33)
[2023-06-03] MEDS: PIPERACILLIN-TAZOB 3.375GM 100 ML IV SCH ×3 (03:22→17:51)
[2023-06-03] MEDS: ACCU-CHEK COMFORT CURVE STRIP VI SCH ×4 (06:45→21:54)
[2023-06-03] MEDS: InsuLIN REG 1unit/0.01ml Soln (100units/ml) SC SCH ×4 (06:47→21:53)
[2023-06-03 06:59] LABS: Potassium 3.5 mmol/L (3.5-5.1)
[2023-06-03 07:06] LABS: Albumin 2.3 g/dL (3.4-5.0); BUN/Creatinine Ratio 31.9 (10.0-20.0); Basophils # (auto) 0 10 ^3/uL (0-0.2); Basophils % (auto) 0.1 % (0.0-2.0); Bilirubin, Total 0.7 mg/dL (0.2-1.0); Calcium 8.2 mg/dL (8.5-10.1); Eosinophils # (auto) 0.1 10 ^3/uL (0-0.8); Eosinophils % (auto) 0.8 % (0.0-7.0); Hematocrit 35.7 % (36.0-46.0); Hemoglobin 12.1 g/dL (12.2-16.2); Lymphocytes # (auto) 1.4 10 ^3/uL (0.4-5.4); Lymphocytes % (auto) 9.9 % (10.0-50.0); Mean Corpuscular Hemoglobin 30.2 pg (28.0-32.0); Mean Corpuscular Hgb Conc. 33.9 g/dL (32.0-36.0); Mean Corpuscular Volume 89.3 fL (80.0-100.0); Monocytes # (auto) 0.7 10 ^3/uL (0-1.3); Monocytes % (auto) 4.6 % (0.0-12.0); Neutrophils % (auto) 84.6 % (37.0-80.0); Nucleated Red Blood Cells % 0.1 %; Red Blood Cells 3.99 10^6/uL (4.0-5.20); Red Cell Distribution Width 13.8 % (11.8-14.3); Total Protein 5.6 g/dL (6.4-8.2); White Blood Cell 14.2 10^3/uL (4.4-10.8)
[2023-06-03] MEDS: ATORVASTATIN 20 MG TAB PO SCH (09:08)
[2023-06-03] MEDS: LOSARTAN POTASSIUM 25 MG TAB PO SCH (09:08)
[2023-06-03] MEDS: amLODIPine BESYLATE 5 MG TAB PO SCH (09:09)
[2023-06-03] MEDS: DONEPEZIL HYDROCHLORIDE 5 MG TAB PO SCH (09:09)
[2023-06-03] MEDS: cloNIDine HCL 0.1 MG TAB PO SCH ×2 (13:20→21:41)
[2023-06-03] MEDS: SODIUM CHLORIDE 0.9% 1,000 ML IV SCH ×2 (13:23→17:45)
[2023-06-03] MEDS: VANCOMYCIN 500 MG in D5W 5% 100 ML IV SCH (14:41)
[2023-06-04] VITALS (15 sets, daily range): BP systolic 118–135; BP diastolic 52–57; PULSE 55–74; RESP 16–18; TEMP 97.6–98.3; O2SAT 95–100
[2023-06-04] MEDS: IPRATROPIUM BROM 0.5 MG/2.5ML INH SOL NEB SCH ×4 (00:08→19:04)
[2023-06-04] MEDS: ALBUTEROL SULF 2.5 MG/0.5ML(0.5%) NEB SOLN NEB PRN ×3 (00:09→19:04)
[2023-06-04] MEDS: PIPERACILLIN-TAZOB 3.375GM 100 ML IV SCH ×3 (01:11→18:02)
[2023-06-04] MEDS: VANCOMYCIN 500 MG in D5W 5% 100 ML IV SCH ×2 (03:14→15:07)
[2023-06-04] MEDS: SODIUM CHLORIDE 0.9% 1,000 ML IV SCH ×3 (04:41→23:45)
[2023-06-04] MEDS: ACCU-CHEK COMFORT CURVE STRIP VI SCH ×4 (06:27→21:11)
[2023-06-04] MEDS: InsuLIN REG 1unit/0.01ml Soln (100units/ml) SC SCH ×4 (06:34→21:10)
[2023-06-04] MEDS: LOSARTAN POTASSIUM 25 MG TAB PO SCH (09:09)
[2023-06-04] MEDS: ATORVASTATIN 20 MG TAB PO SCH (09:09)
[2023-06-04] MEDS: DONEPEZIL HYDROCHLORIDE 5 MG TAB PO SCH (09:09)
[2023-06-04] MEDS: amLODIPine BESYLATE 5 MG TAB PO SCH (09:11)
[2023-06-04] MEDS: cloNIDine HCL 0.1 MG TAB PO SCH ×2 (14:28→21:11)
[2023-06-05] VITALS (10 sets, daily range): BP systolic 121–136; BP diastolic 52–55; PULSE 57–71; RESP 18–21; TEMP 97.7–97.8; O2SAT 96–100
[2023-06-05] MEDS: VANCOMYCIN 500 MG in D5W 5% 100 ML IV SCH ×2 (00:23→12:33)
[2023-06-05] MEDS: IPRATROPIUM BROM 0.5 MG/2.5ML INH SOL NEB SCH ×3 (00:31→12:01)
[2023-06-05] MEDS: ALBUTEROL SULF 2.5 MG/0.5ML(0.5%) NEB SOLN NEB PRN ×3 (00:31→12:01)
[2023-06-05] MEDS: PIPERACILLIN-TAZOB 3.375GM 100 ML IV SCH ×2 (01:44→10:09)
[2023-06-05] MEDS: ACCU-CHEK COMFORT CURVE STRIP VI SCH ×2 (06:09→12:32)
[2023-06-05] MEDS: InsuLIN REG 1unit/0.01ml Soln (100units/ml) SC SCH ×2 (06:10→12:32)
[2023-06-05] MEDS: DONEPEZIL HYDROCHLORIDE 5 MG TAB PO SCH (10:09)
[2023-06-05] MEDS: LOSARTAN POTASSIUM 25 MG TAB PO SCH (10:10)
[2023-06-05] MEDS: amLODIPine BESYLATE 5 MG TAB PO SCH (10:10)
[2023-06-05] MEDS: cloNIDine HCL 0.1 MG TAB PO SCH (10:11)
[2023-06-05] MEDS: ATORVASTATIN 20 MG TAB PO SCH (10:11)
[2023-06-05] MEDS ORDERED: LEVO500T91 PO (10:44)
== END 2023-06-05 14:35 | disposition home or self-care (01) | DRG 178 ==
LOC: ER 07:38 → TELE 11:35 → TELE-WESTW 06-03 02:30
PROVIDERS: ADMIT Family Medicine; ATTEND Family Medicine
DX: J69.0 Pneumonitis due to inhalation of food and vomit (principal); J44.0 Chronic obstructive pulmonary disease with (acute) lower respiratory infection; N39.0 Urinary tract infection, site not specified; E11.40 Type 2 diabetes mellitus with diabetic neuropathy, unspecified; Z20.822 Contact with and (suspected) exposure to COVID-19; E11.65 Type 2 diabetes mellitus with hyperglycemia; I25.10 Atherosclerotic heart disease of native coronary artery without angina pectoris; E11.21 Type 2 diabetes mellitus with diabetic nephropathy; E11.36 Type 2 diabetes mellitus with diabetic cataract; I10 Essential (primary) hypertension; E78.5 Hyperlipidemia, unspecified; Z82.49 Family history of ischemic heart disease and other diseases of the circulatory system; Z82.5 Family history of asthma and other chronic lower respiratory diseases; Z83.3 Family history of diabetes mellitus; Z85.118 Personal history of other malignant neoplasm of bronchus and lung; Z86.16 Personal history of COVID-19; Z87.01 Personal history of pneumonia (recurrent); Z88.1 Allergy status to other antibiotic agents
CPT/HCPCS: 36415; 71046; 71260; 80053; 80202; 81001; 82010; 82962; 83036; 83735; 84484; 85025; 85610; 87040; 93005; 93306; 94640; 96361; 96365; 96367; 96375; G0378; J1815; J2543; J7060

== ENCOUNTER 2023-10-22 09:40 | Inpatient (IN) | payer MEDICARE, OTHER ==
[~2023-10-22] VITALS: Ht 152.4 cm; Wt 50.3 kg
[2023-10-22] VITALS (9 sets, daily range): BP systolic 96–121; BP diastolic 48–56; PULSE 75–85; RESP 17–18; TEMP 98.4–98.5; O2SAT 95–100
[~2023-10-22 09:40] MED LIST changes: +LEVO500T91 PO
[2023-10-22] MEDS ORDERED: IPRATROPIUM BROM 0.5 MG/2.5ML INH SOL NEB ONE ×2 (11:15→12:00)
[2023-10-22] MEDS ORDERED: ALBUTEROL SULF 2.5 MG/0.5ML(0.5%) NEB SOLN NEB ONE ×2 (11:15→12:00)
[2023-10-22 11:43] LABS: Basophils # (auto) 0 10 ^3/uL (0-0.2); Basophils % (auto) 0.4 % (0.0-2.0); Eosinophils # (auto) 0.1 10 ^3/uL (0-0.8); Eosinophils % (auto) 1.2 % (0.0-7.0); Hematocrit 43.6 % (36.0-46.0); Hemoglobin 14.3 g/dL (12.2-16.2); Lymphocytes # (auto) 1.2 10 ^3/uL (0.4-5.4); Lymphocytes % (auto) 10.2 % (10.0-50.0); Mean Corpuscular Hemoglobin 29.4 pg (28.0-32.0); Mean Corpuscular Hgb Conc. 32.9 g/dL (32.0-36.0); Mean Corpuscular Volume 89.5 fL (80.0-100.0); Monocytes # (auto) 0.9 10 ^3/uL (0-1.3); Monocytes % (auto) 7.7 % (0.0-12.0); Neutrophils # (auto) 9.4 10 ^3/uL (1.6-8.6); Neutrophils % (auto) 80.5 % (37.0-80.0); Red Blood Cells 4.87 10^6/uL (4.0-5.20); Red Cell Distribution Width 14.3 % (11.8-14.3); White Blood Cell 11.7 10^3/uL (4.4-10.8)
[2023-10-22 12:00] LABS: Albumin 4.2 g/dL (3.2-4.8); Alkaline Phosphatase 73 U/L (46-116); Anion Gap 9 (5-15); Aspartate Aminotransferase 19 U/L (13-40); BUN/Creatinine Ratio 8.4 (10.0-20.0); Bilirubin, Total 0.6 mg/dL (0.2-1.0); Blood Urea Nitrogen 7 mg/dL (9-23); Calcium 9.1 mg/dL (8.5-10.1); Carbon Dioxide 28 mmol/L (20-30); Chloride 104 mmol/L (98-107); Glucose 167 mg/dL (74-106); Potassium 3.5 mmol/L (3.5-5.1); Sodium 141 mmol/L (136-145)
[2023-10-22] MEDS ORDERED: AZITHROMYCIN 500MG/ 250ML 250 ML IV ONE (12:00)
[2023-10-22] MEDS ORDERED: methylPREDNISolone SOD SUCC 125 MG/2 ML VL IV ONE (12:00)
[2023-10-22 12:01] LABS: Total Protein 7.5 g/dL (5.7-8.2)
[2023-10-22 12:04] LABS: Alanine Aminotransferase 9 U/L (7-40)
[2023-10-22 13:55] LABS: COVID19 ANTIGEN SOFIA FIA NEGATIVE (NEGATIVE)
[2023-10-22 13:56] LABS: Rapid Influenza A Negative (Negative); Rapid Influenza B Negative (Negative)
[2023-10-22] MEDS ORDERED: cefTRIAXone 1GM/50ML D5W 50 ML IV ONE (15:45)
[2023-10-22] MEDS ORDERED: MORPHINE SULFATE INJ 2 MG/ml SYRG IV PRN (17:45)
[2023-10-22] MEDS ORDERED: ONDANSETRON HCL 4 MG/2 ML VIAL IV PRN (17:45)
[2023-10-22] MEDS ORDERED: PROMETHAZINE W/CODEINE 5 ML ORAL SYRUP PO PRN (17:45)
[2023-10-22] MEDS ORDERED: DOCUSATE SOD 100 MG CAP PO PRN (17:45)
[2023-10-22] MEDS ORDERED: DEXTROSE (50%) 50ML SYRG IV PRN (17:45)
[2023-10-22] MEDS ORDERED: ALBUTEROL SULF 2.5 MG/0.5ML(0.5%) NEB SOLN ONE (18:16)
[2023-10-22] MEDS ORDERED: IPRATROPIUM BROM 0.5 MG/2.5ML INH SOL ONE (18:17)
[2023-10-22] MEDS: ALBUTEROL SULF 2.5 MG/0.5ML(0.5%) NEB SOLN NEB SCH ×2 (18:29→22:42)
[2023-10-22] MEDS: IPRATROPIUM BROM 0.5 MG/2.5ML INH SOL NEB SCH ×2 (18:30→22:42)
[2023-10-22] MEDS: SODIUM CHLORIDE 0.9% 1,000 ML IV SCH (18:32)
[2023-10-23] VITALS (20 sets, daily range): BP systolic 104–126; BP diastolic 46–64; PULSE 68–88; RESP 14–20; TEMP 97.3–98.2; O2SAT 90–100
[2023-10-23] MEDS: ALBUTEROL SULF 2.5 MG/0.5ML(0.5%) NEB SOLN NEB SCH ×6 (02:16→22:12)
[2023-10-23] MEDS: IPRATROPIUM BROM 0.5 MG/2.5ML INH SOL NEB SCH ×6 (02:16→22:12)
[2023-10-23] MEDS: SODIUM CHLORIDE 0.9% 1,000 ML IV SCH (05:00)
[2023-10-23] MEDS: methylPREDNISolone SOD SUCC 125 MG/2 ML VL IV SCH ×3 (06:00→23:33)
[2023-10-23] MEDS ORDERED: EMPA1TAB PO (06:21)
[2023-10-23] MEDS ORDERED: FLUO-126 PO (06:23)
[2023-10-23] MEDS ORDERED: PROM25TA10 PO (06:25)
[2023-10-23 06:26] LABS: Basophils # (auto) 0 10 ^3/uL (0-0.2); Eosinophils # (auto) 0 10 ^3/uL (0-0.8); Hematocrit 38.7 % (36.0-46.0); Hemoglobin 12.7 g/dL (12.2-16.2); Lymphocytes # (auto) 0.5 10 ^3/uL (0.4-5.4); Lymphocytes % (auto) 3.9 % (10.0-50.0); Mean Corpuscular Hemoglobin 29.3 pg (28.0-32.0); Mean Corpuscular Hgb Conc. 32.7 g/dL (32.0-36.0); Mean Corpuscular Volume 89.5 fL (80.0-100.0); Monocytes # (auto) 0.3 10 ^3/uL (0-1.3); Monocytes % (auto) 2.3 % (0.0-12.0); Neutrophils # (auto) 12.1 10 ^3/uL (1.6-8.6); Neutrophils % (auto) 93.8 % (37.0-80.0); Red Blood Cells 4.33 10^6/uL (4.0-5.20)
[2023-10-23 06:44] LABS: Albumin 3.7 g/dL (3.2-4.8); Alkaline Phosphatase 62 U/L (46-116); Anion Gap 11 (5-15); Aspartate Aminotransferase 14 U/L (13-40); BUN/Creatinine Ratio 15.4 (10.0-20.0); Blood Urea Nitrogen 14 mg/dL (9-23); Calcium 8.5 mg/dL (8.7-10.4); Carbon Dioxide 22 mmol/L (20-30); Chloride 106 mmol/L (98-107); Glucose 197 mg/dL (74-106); Potassium 3.5 mmol/L (3.5-5.1); Sodium 139 mmol/L (136-145)
[2023-10-23 06:45] LABS: Bilirubin, Total 0.6 mg/dL (0.2-1.0); Total Protein 6.6 g/dL (5.7-8.2)
[2023-10-23 06:50] LABS: Alanine Aminotransferase < 9 U/L (7-40)
[2023-10-23] MEDS: ACCU-CHEK COMFORT CURVE STRIP VI SCH ×4 (07:21→22:45)
[2023-10-23] MEDS: InsuLIN REG 1unit/0.01ml Soln (100units/ml) SC SCH ×4 (07:25→23:00)
[2023-10-23] MEDS ORDERED: amLODIPine BESYLATE 5 MG TAB PO SCH (10:00)
[2023-10-23] MEDS ORDERED: AZITHROMYCIN 500MG/ 250ML 250 ML IV SCH (10:00)
[2023-10-23] MEDS ORDERED: PANTOPRAZOLE 40 MG/10 ML VIAL INJ IV SCH (10:00)
[2023-10-23] MEDS: BUDESONIDE (INHALATION) 0.5 MG/2 ML NEB NEB SCH ×2 (10:54→18:55)
[2023-10-23] MEDS: DONEPEZIL HYDROCHLORIDE 5 MG TAB PO SCH (11:35)
[2023-10-23] MEDS: cefTRIAXone 1GM/50ML D5W 50 ML IV SCH (11:35)
[2023-10-23] MEDS: LOSARTAN POTASSIUM 25 MG TAB PO SCH (11:36)
[2023-10-23] MEDS: ATORVASTATIN 20 MG TAB PO SCH (11:36)
[2023-10-23 11:45] LABS: Lactic Acid w/Reflex 2.6 mmol/L (0.4-2.0)
[2023-10-23] MEDS: EMPAGLIFLOZIN 10 MG TAB PO SCH (12:17)
[2023-10-23] MEDS ORDERED: ERGOCALCIFEROL 50,000 UNIT(1.25MG) CAP PO SCH (12:45)
[2023-10-23] MEDS ORDERED: NITROGLYCERIN 0.4 MG SL TAB SL PRN (12:45)
[2023-10-23] MEDS ORDERED: AMLO1TAB23 PO (13:23)
[2023-10-23] MEDS ORDERED: ATOR40TA52 PO (13:23)
[2023-10-23] MEDS: ASPirin 81 mg TAB PO SCH (16:14)
[2023-10-23] MEDS: ENOXAPARIN SOD 40 MG/0.4 ML SYRINGE SC SCH (16:16)
[2023-10-23] MEDS: INSULIN LANTUS (GLARGINE) 1 /0.01ml (100units/ml) SC SCH (16:23)
[2023-10-23 20:33] LABS: Urine WBC None Seen /hpf (0 - 5)
[2023-10-23 20:49] LABS: Urine Bacteria NONE SEEN /hpf (None Seen); Urine Blood Negative /uL (Negative); Urine Budding Yeast OCCASIONAL /hpf (None Seen); Urine Clarity Clear (Clear); Urine Protein, UAD Negative (Negative); Urine Urobilinogen Normal (Negative); Urine pH 5.5 (5.0-8.0)
[2023-10-23 20:51] LABS: Urine Color Straw (Yellow)
[2023-10-23] MEDS: CARVEDILOL 3.125 MG TAB PO SCH (23:33)
[2023-10-24] VITALS (17 sets, daily range): BP systolic 109–121; BP diastolic 50–65; PULSE 64–75; RESP 15–18; TEMP 36.9; O2SAT 5–100
[2023-10-24] MEDS: IPRATROPIUM BROM 0.5 MG/2.5ML INH SOL NEB SCH ×4 (02:05→13:53)
[2023-10-24] MEDS: ALBUTEROL SULF 2.5 MG/0.5ML(0.5%) NEB SOLN NEB SCH ×4 (02:05→13:53)
[2023-10-24] MEDS: BUDESONIDE (INHALATION) 0.5 MG/2 ML NEB NEB SCH (06:19)
[2023-10-24 06:36] LABS: Hematocrit 36.7 % (36.0-46.0); Hemoglobin 12.3 g/dL (12.2-16.2); Mean Corpuscular Hemoglobin 29.9 pg (28.0-32.0); Mean Corpuscular Hgb Conc. 33.6 g/dL (32.0-36.0); Red Blood Cells 4.12 10^6/uL (4.0-5.20); Red Cell Distribution Width 14.3 % (11.8-14.3); White Blood Cell 14.2 10^3/uL (4.4-10.8)
[2023-10-24 06:39] LABS: Alanine Aminotransferase 13 U/L (7-40); Alkaline Phosphatase 57 U/L (46-116); Anion Gap 7 (5-15); BUN/Creatinine Ratio 38.5 (10.0-20.0); Calcium 8.3 mg/dL (8.7-10.4); Carbon Dioxide 27 mmol/L (20-30); Chloride 108 mmol/L (98-107); Glucose 122 mg/dL (74-106); Potassium 4.5 mmol/L (3.5-5.1); Sodium 142 mmol/L (136-145)
[2023-10-24 06:40] LABS: Albumin 3.4 g/dL (3.2-4.8); Aspartate Aminotransferase 19 U/L (13-40); Bilirubin, Total 0.3 mg/dL (0.2-1.0); Total Protein 5.9 g/dL (5.7-8.2)
[2023-10-24 06:46] LABS: Blood Urea Nitrogen 30 mg/dL (9-23)
[2023-10-24 07:11] LABS: Basophils % (manual) 0 (0.0-2.0); Blast Cells 0; Eosinophils % (manual) 0 (0-7); Metamyelocytes % 0; Promyelocytes % 0
[2023-10-24] MEDS: EMPAGLIFLOZIN 10 MG TAB PO SCH (07:28)
[2023-10-24] MEDS: ACCU-CHEK COMFORT CURVE STRIP VI SCH ×2 (07:28→11:45)
[2023-10-24] MEDS: methylPREDNISolone SOD SUCC 125 MG/2 ML VL IV SCH ×2 (07:28→14:00)
[2023-10-24] MEDS: InsuLIN REG 1unit/0.01ml Soln (100units/ml) SC SCH ×2 (07:29→12:10)
[2023-10-24] MEDS: INSULIN LANTUS (GLARGINE) 1 /0.01ml (100units/ml) SC SCH (07:36)
[2023-10-24] MEDS: ASPirin 81 mg TAB PO SCH (09:52)
[2023-10-24] MEDS: ATORVASTATIN 20 MG TAB PO SCH (09:52)
[2023-10-24] MEDS: ENOXAPARIN SOD 40 MG/0.4 ML SYRINGE SC SCH (09:52)
[2023-10-24] MEDS: LOSARTAN POTASSIUM 25 MG TAB PO SCH (09:53)
[2023-10-24] MEDS: DONEPEZIL HYDROCHLORIDE 5 MG TAB PO SCH (09:53)
[2023-10-24] MEDS: CARVEDILOL 3.125 MG TAB PO SCH (09:53)
[2023-10-24] MEDS: cefTRIAXone 1GM/50ML D5W 50 ML IV SCH (09:54)
[2023-10-24] MEDS ORDERED: AZITHROMYCIN 250 MG TAB PO SCH (10:00)
[2023-10-24] MEDS ORDERED: ERGO1CAP23 PO (10:44)
[2023-10-24] MEDS ORDERED: AZIT500T66 PO (10:44)
[2023-10-24] MEDS ORDERED: CAR3125T PO (10:44)
[2023-10-24] MEDS ORDERED: ASPI-325 PO (10:44)
[2023-10-24] MEDS ORDERED: IPR002IS NEB (10:44)
[2023-10-24] MEDS ORDERED: FURO1TAB33 PO (10:44)
[2023-10-24] MEDS ORDERED: PRED20TA2 PO ×2 (10:44→13:30)
[2023-10-24] MEDS ORDERED: ALB5IS NEB (10:44)
[2023-10-24] MEDS ORDERED: BUDE0.253 IN (10:46)
[2023-10-24 12:27] LABS: Band Neutrophils % (manual) 10; Lymphocytes % (manual) 3 (10.0-50.0); Monocytes % (manual) 1 (0-12); Myelocytes % 1; Reactive Lymphocytes 1
[2023-10-24 12:28] LABS: Platelet Estimate Decreased
[2023-10-25 08:06] LABS: Thyroxine (T4) 6.1 ug/dL (4.5-12.0)
== END 2023-10-24 16:58 | disposition home or self-care (01) | DRG 871 ==
LOC: ER 09:40 → OVERFLOW 18:06 → EAST 21:29
PROVIDERS: ADMIT Internal Medicine; ATTEND Internal Medicine
DX: A41.9 Sepsis, unspecified organism (principal); I21.A1 Myocardial infarction type 2; J15.9 Unspecified bacterial pneumonia; J96.01 Acute respiratory failure with hypoxia; J15.69 Pneumonia due to other Gram-negative bacteria; J45.901 Unspecified asthma with (acute) exacerbation; J44.0 Chronic obstructive pulmonary disease with (acute) lower respiratory infection; J44.1 Chronic obstructive pulmonary disease with (acute) exacerbation; J98.11 Atelectasis; J47.0 Bronchiectasis with acute lower respiratory infection; E11.36 Type 2 diabetes mellitus with diabetic cataract; E11.65 Type 2 diabetes mellitus with hyperglycemia; E78.5 Hyperlipidemia, unspecified; E11.9 Type 2 diabetes mellitus without complications; E55.9 Vitamin D deficiency, unspecified; Z20.822 Contact with and (suspected) exposure to COVID-19; I10 Essential (primary) hypertension; F03.90 Unspecified dementia, unspecified severity, without behavioral disturbance, psychotic disturbance, mood disturbance, and anxiety; Z86.16 Personal history of COVID-19; Z79.4 Long term (current) use of insulin; Z79.84 Long term (current) use of oral hypoglycemic drugs; Z88.1 Allergy status to other antibiotic agents; Z82.49 Family history of ischemic heart disease and other diseases of the circulatory system; Z82.5 Family history of asthma and other chronic lower respiratory diseases; Z83.3 Family history of diabetes mellitus
CPT/HCPCS: 36415; 71045; 71275; 80053; 81001; 82306; 82607; 82962; 83036; 83605; 83880; 84436; 84443; 84481; 84484; 85007; 85025; 85027; 85379; 86606; 87040; 87426; 87804; 93005; 93970; 94640; 94644; 96365; 96375; C9113; G0378; J1815

== ENCOUNTER 2024-07-31 08:11 | Emergency (ER) | payer MEDICARE, OTHER ==
[~2024-07-31] VITALS: Ht 154.9 cm; Wt 48.6 kg
[~2024-07-31 08:11] MED LIST changes: +ALB5IS NEB; -AMLO1TAB22 PO; +ASPI-325 PO; -ATOR20TA PO; +ATOR40TA52 PO; +AZIT500T66 PO; +BUDE0.253 IN; +CARV-214 PO; +EMPA1TAB PO; +ERGO1CAP23 PO; +FLUO-126 PO; +FURO1TAB33 PO; +IPR002IS NEB; -LEVO500T91 PO; +LOSA-533 PO; -LOSA25TA15 PO; -METF-1145; +PRED20TA2 PO; +PROM25TA10 PO
[2024-07-31 08:22] VITALS: BP 178/55; RESP 18; O2SAT 98
[2024-07-31 09:04] LABS: Basophils # (auto) 0.1 10 ^3/uL (0-0.2); Eosinophils # (auto) 0.9 10 ^3/uL (0-0.8); Eosinophils % (auto) 10.9 % (0.0-7.0); Hematocrit 44.3 % (36.0-46.0); Hemoglobin 14.9 g/dL (12.2-16.2); Lymphocytes # (auto) 1.9 10 ^3/uL (0.4-5.4); Lymphocytes % (auto) 24.7 % (10.0-50.0); Mean Corpuscular Hemoglobin 31.3 pg (28.0-32.0); Mean Corpuscular Hgb Conc. 33.6 g/dL (32.0-36.0); Mean Corpuscular Volume 93.1 fL (80.0-100.0); Monocytes # (auto) 0.4 10 ^3/uL (0-1.3); Monocytes % (auto) 5.3 % (0.0-12.0); Neutrophils # (auto) 4.6 10 ^3/uL (1.6-8.6); Neutrophils % (auto) 58.1 % (37.0-80.0); Nucleated Red Blood Cells % 0.1 %; Platelet Count (auto) 174 10^3/uL (140-450); Red Blood Cells 4.75 10^6/uL (4.0-5.20); Red Cell Distribution Width 13.2 % (11.8-14.3); White Blood Cell 7.9 10^3/uL (4.4-10.8)
[2024-07-31 09:05] LABS: Chloride 109 mmol/L (98-107); Potassium 3.8 mmol/L (3.5-5.1); Sodium 142 mmol/L (136-145)
[2024-07-31 09:06] LABS: Anion Gap 8 (5-15); Carbon Dioxide 25 mmol/L (20-31)
[2024-07-31 09:07] LABS: Calcium 9.1 mg/dL (8.7-10.4)
[2024-07-31 09:11] LABS: BUN/Creatinine Ratio 20.6 (10.0-20.0); Blood Urea Nitrogen 20 mg/dL (9-23); Glucose 282 mg/dL (74-106)
[2024-07-31 09:37] VITALS: PULSE 51
[2024-07-31 09:40] LABS: Albumin 4.1 g/dL (3.2-4.8); Bilirubin, Direct 0.2 mg/dL (<0.3); Bilirubin, Total 0.6 mg/dL (0.2-1.0); Total Protein 7.2 g/dL (5.7-8.2)
[2024-07-31 12:50] LABS: Urine Bacteria None Seen /hpf (None Seen); Urine WBC None Seen /hpf (0 - 5)
[2024-07-31] MEDS ORDERED: DexAMETHasone SOD PHOS 4 MG/1ML SDV INJ IV ONE (13:00)
[2024-07-31] MEDS ORDERED: diphenhdrAMINE HCL 50 MG/1 ML VL IV ONE (13:00)
[2024-07-31 13:37] LABS: Urine Blood Negative /uL (Negative); Urine Clarity Clear (Clear); Urine Color Light-Yellow (Yellow); Urine Protein, UAD TRACE (Negative); Urine Specific Gravity 1.036 (1.001-1.035); Urine Urobilinogen Normal (Negative)
[2024-07-31] MEDS ORDERED: DIPH25CA66 PO (15:11)
[2024-07-31] MEDS ORDERED: PRED20TA2 PO (15:11)
== END 2024-07-31 15:06 | disposition left against medical advice (07) ==
LOC: ER 08:11
DX: I25.9 Chronic ischemic heart disease, unspecified (principal); L50.9 Urticaria, unspecified; R79.89 Other specified abnormal findings of blood chemistry; E11.65 Type 2 diabetes mellitus with hyperglycemia; Z79.899 Other long term (current) drug therapy; Z88.8 Allergy status to other drugs, medicaments and biological substances
CPT/HCPCS: 36415; 80048; 80076; 81001; 83735; 84484; 85025; 93005

== ENCOUNTER 2025-04-19 10:41 | Inpatient (IN) | payer MEDICARE, OTHER ==
[~2025-04-19] VITALS: Ht 157.5 cm; Wt 47.8 kg
[2025-04-19] VITALS (56 sets, daily range): BP systolic 104–217; BP diastolic 60–122; PULSE 89–134; RESP 18–41; TEMP 81.7–101.1; O2SAT 82–100
[~2025-04-19 10:41] MED LIST changes: +DIPH25CA66 PO
[2025-04-19] MEDS ORDERED: ETOMIDATE (2MG/ML) 20ML VIAL IV ONE (10:45)
[2025-04-19] MEDS: ETOMIDATE (2MG/ML) 20ML VIAL IV ONE (10:46)
[2025-04-19] MEDS: MIDAZOLAM DRIP 50 mg/50mL 50 ML IV ONE ×3 (10:46→12:16)
[2025-04-19] MEDS: MIDAZOLAM DRIP 50 mg/50mL 50 ML IV SCH (10:46)
[2025-04-19] MEDS: SUCCINYLCHOLINE CHLORIDE 20 MG/ML 10ML VIAL IV ONE ×2 (11:00)
[2025-04-19] MEDS ORDERED: ONDANSETRON HCL 4 MG/2 ML VIAL IV PRN (11:30)
[2025-04-19] MEDS ORDERED: ACETAMINOPHEN 325 MG TAB PO PRN (11:30)
[2025-04-19] MEDS ORDERED: MORPHINE SULFATE INJ 2 MG/ml SYRG IV PRN (11:30)
[2025-04-19] MEDS ORDERED: NITROGLYCERIN 0.4 MG SL TAB SL PRN (11:30)
[2025-04-19] MEDS ORDERED: VANCOMYCIN PER PHARMACY 0 MG IV SCH (11:45)
[2025-04-19 11:47] LABS: Urine Bacteria FEW /hpf (None Seen); Urine Blood 2+ /uL (Negative); Urine Clarity Clear (Clear); Urine Color Colorless (Yellow); Urine Protein, UAD 1+ (Negative); Urine Squamous Epithelial Cell None Seen /hpf (<5); Urine Urobilinogen Normal (Negative); Urine WBC 9 /HPF (0-5); Urine pH 6.5 (5.0-9.0)
--- NOTE | 2025-04-19 11:52 | DVH ---
CT HEAD WITHOUT CONTRAST INDICATION: Acute respiratory failure syncope and collapse EXAM DATE: 04/19/2025 11:17 AM COMPARISON: None RADIATION DOSE: CTDIvol: 47.81 mGy, DLP: 865.2 mGy*cm PROCEDURE: CT scans of the head were obtained from the vertex to the skull base. Sagittal and coronal reconstructions were provided. All CT scans at this medical facility are performed using dose modulation techniques as appropriate t o a performed exam including the following: Automated exposure control was utilized; adjustment of th e MA and/or KV according to patient size; and use of iterative reconstruction technique. FINDINGS: There is sulcal and ventricular prominence. The brainshows normal morphology and mendoza-whi te matter differentiation, without intracranial hemorrhage, extra-axial fluid collection, mass effect or acute large vessel infarct. The ventricles are normal in size. The basal cisterns are patent. The skull and visible facial bones are intact. The paranasal sinuses, mastoid air cells and middle ear c avities are well-aerated. The soft tissues of the scalp are unremarkable. IMPRESSION: No acute intracranial abnormality.
--- NOTE | 2025-04-19 11:55 | DVHHP2 ---
History of Present Illness Reason for Visit: AMS History of Present Illness Arianne Haskins is an 79-year-old female with past medical history of hypertension, hyperlipidemia, diabetes type 2, COPD, asthma, COVID-19, pneumonia, right upper lobe lung mass that was ruled out for lung cancer at [place], cataracts, left lung scarring, dementia, PTCA, BTL, and oophorectomy who presents to the ED after being found unconscious by has been at home. Patient was brought in by EMS and was given Narcan EN route with no response. Unable to obtain further information. Called spouse Sameer with contact number unlisted and unsuccessful. Cardiovascular: HTN, hyperipidemia Pulmonary: COPD Endocrine: Diabetes Family History: DM, Hypertension, Other (Mom with asthma, diabetes, [place], and hypertension. Sister with asthma, hypertension, and thyroid disease.), Thyroid disfunction Review of Systems Constitutional: Yes: Other (Found unconscious) Allergies: Coded Allergies: Cephalosporins (Verified Allergy, Unknown, ITCHING ALL OVER, 04/19/25) Medications Current Medications Medications Dose Ordered Sig/Jodren Route Start Time Stop Time Status Last Admin Dose Admin Norepinephrine Bitartrate 250 ml @ 3.75 mls/hr Q24H IV 04/19/25 11:15 UNV Propofol 100 ml @ 1.773 mls/ hr Q24H IV 04/19/25 11:15 UNV Ondansetron HCl 4 mg Q4HP PRN IV 04/19/25 11:30 UNV Acetaminophen 650 mg Q6HP PRN PO 04/19/25 11:30 UNV Nitroglycerin 0.4 mg Q5MINP PRN SL 04/19/25 11:30 UNV Morphine Sulfate 2 mg Q30M PRN IV 04/19/25 11:30 UNV Exam Vital Signs Vital Signs Date Time Temp Pulse Resp B/P (MAP) Pulse Ox O2 Delivery O2 Flow Rate FiO2 04/19/25 11:25 97.5 108 21 221/106 (144) 89 97.5 Abdominal: Soft Labs/Xrays Labs Test 04/19/25 11:15 Range/Units CT HEAD WITHOUT CONTRAST INDICATION: Acute respiratory failure syncope and collapse EXAM DATE: 04/19/2025 11:17 AM COMPARISON: None RADIATION DOSE: CTDIvol: 47.81 mGy, DLP: 865.2 mGy*cm PROCEDURE: CT scans of the head were obtained from the vertex to the skull base. Sagittal and coronal reconstructions were provided. All CT scans at this medical facility are performed using dose modulation techniques as appropriate to a performed exam including the following: Automated exposure control was utilized; adjustment of the MA and/or KV according to pat ient size; and use of iterative reconstruction technique. FINDINGS: There is sulcal and ventricular prominence. The brainshows normal morphology and mendoza-white matter differentiation, without intracranial hemorrhage, extra-axial fluid collection, mass effect or acute large vessel infarct. The ventricles are normal in size. The basal cisterns are patent. The skull and visible facial bones are intact. The paranasal sinuses, mastoid air cells and middle ear cavities are well-aerated. The soft tissues of the scalp are unremarkable. IMPRESSION: No acute intracranial abnormality. XY CHEST PORTABLE, HISTORY: Acute respiratory failure COMPARISON: XY CHEST XRAY 1 VIEW on DOS: 10/22/23, CHEST PORTABLE on DOS: 09/05/21 XY CHEST XRAY 1 VIEW on DOS: 10/22/23, CHEST PORTABLE on DOS: 09/05/21 TECHNICAL DATA: 1 view of the chest was obtained. FINDINGS: Lines and tubes: ET in the lower thoracic trachea near the right mainstem, consider retraction by 3 cm. Cardiomediastinal silhouette: normal Pulmonary vasculature: normal Lung expansion: normal Lung airspace: Similar right upper lobe consolidation. Lung interstitium: normal Pleura: normal Pneumothorax: no Bones: Unremarkable Other: NG in the stomach. IMPRESSION: ET in the lower thoracic trachea near the right mainstem, consider retraction by 3 cm. Similar right upper lobe consolidation. EXAM: CT CERVICAL WITHOUT CONTRAST INDICATION: Acute respiratory failure/syncope and collapse EXAM DATE: 04/19/2025 11:19 AM COMPARISON: None TECHNIQUE: Multiple axial CT images of the cervical spine were obtained using bone algorithm. Axial and coronal reformatting was done. Bone and soft tissue windows were reviewed. Radiation Dose Information: CT Dose: CTDI volume is 19.82 mGy. Dose-length product is 448.04 mGy*cm FINDINGS: The cervical alignment is intact. No acute cervical spine fracture is identified. The vertebral body heights are intact. No suspicious osseous lesions are identified. Mild degenerative changes throughout the cervical spine Consolidation is seen in the right lung apex. IMPRESSION: 1. No evidence of acute cervical spine fracture or traumatic malalignment. 2. Consolidation is seen in the right lung apex which may reflect pneumonia 3. All CT scans at this medical facility are performed using dose modulation techniques as appropriate to a performed exam including the following: Automated exposure control was utilized; adjustment of the MA and/or KV according to patient size; and use of iterative reconstruction technique. Assessment/Plan Assessment/Plan Assessment Acute hypoxic respiratory failure Similar right upper lobe consolidation probable PNA Acute metabolic encephalopathy Leukocytosis unclear etiology Lactic acidosis probable sepsis YANI Diabetes type 2 uncontrolled History of hypertension History of hyperlipidemia History of COPD History of asthma History of COVID-19 History of pneumonia History of right upper lobe lung mass that was ruled out for lung cancer at [place] History of left lung scarring History of cataracts History of dementia History of PTCA History of BTL History of oophorectomy Plan Admit to ICU Intubated on vent ABGs Pressors as needed Sedation Lactic Blood cultures Urine cultures Respiratory culture BNP Elevated troponins IV antibiotics - vancomycin + Zosyn Chest x-ray CT head CT cervical Mag level Hemoglobin A1c ISS and Accu-Cheks Medications reconciled DVT prophylaxis-Lovenox PUD prophylaxis-PPIs Discussed plan of care with nurse Pulmonary consult Cardiology consult environmental services attendant-locate family Plan discussed with: Other My Orders Orders - EL BOLAÑOS PODIATRIST ASSISTANT Procedure Category Date Status Time Admit ADMIT 04/19/25 Transmitted 11:25 Allergies BIRD 04/19/25 In Process 11:25 Code Status CODE 04/19/25 Transmitted 11:25 Ondansetron Hcl PHA 04/19/25 Logged (Zofran) 11:30 Complete Blood Count LAB 04/20/25 Verified 04:00 Comprehensive LAB 04/20/25 Verified Metabolic Panel 04:00 Npo (Nothing By DIET 04/19/25 Transmitted Mouth) Diet Lunch Echo 2d Mode Cardiac US 04/19/25 Logged DOP 11:25 Acetaminophen Tablet PHA 04/19/25 Logged (Tylenol Tablet) 11:30 Nitroglycerin PHA 04/19/25 Logged Sublingual (Ntrostat 11:30 Morphine Sulfate PHA 04/19/25 Logged Injection 11:30 Stat Ekg For Chest BIRD 04/19/25 In Process Pain 11:25 Notify Md Of Changes BIRD 04/19/25 In Process From Base 11:25 Keyboard Action Assembler For BIRD 04/19/25 In Process 24 Hours 11:25 Emergency Dysrhythmia BIRD 04/19/25 In Process Protocol 11:25 Rhythm Strips Once BIRD 04/19/25 In Process Every Shift 11:25 Oxygen By Nasal RT 04/19/25 Transmitted Cannula 11:25 Aspirin Enteric PHA 04/20/25 Transmitted Coated Tablet 10:00 Carvedilol Tablet PHA 04/19/25 Transmitted (Coreg Tablet) 22:00 Ergocalciferol PHA 04/19/25 Transmitted (Vitamin D 50,000 11:45 (Nf) Atorvastatin PHA 04/20/25 Transmitted Calcium 10:00 Date of Service: Apr 19, 2025 Billing Provider: EL BOLAÑOS Common Visit Codes: [id number] INP/OBS CARE (HIGH) EL BOLAÑOS Apr 19, 2025 11:55
--- NOTE | 2025-04-19 11:56 | ED.PDOC ---
HPI Comments 79 y/o F is BIBA from home for ALOC. called 911 Patient had 2 syncopal episodes at home. 1st in her backyard and unwitnessed. 2nd witnessed and assisted to the couch by . Patient then awoke and vomited right afterwards. Then became unresponsive. Patient has left proximal tibia IO from the field No C-collar Unresponsive Atrial fibrillation with RVR and hypertensive in the 200s. Multiple teeth are missing on initial evaluation. HPI: Poor Historian. 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, COPD Past Surgical History: PTCA, oophorectomy, BTL, right upper lobe lung mass r/o for cancer Medications: Abdi Patient was admitted and discharged recently with the following Final Diagnosis/Problems List Acute respiratory failure likely 2/2 Asthma exacerbation vs sepsis 2/2 gram negative pneumonia R lung mass, ruled out in [facility] T2DM Low TSH Elevated D dimer Elevated troponin, likely 2/2 demand ischemia 2/2 NSTEMI type2 due to hypoxia, ACS ruled out Vit D deficiency REVIEW OF SYSTEMS: REVIEW OF SYSTEM IS LIMITED GIVEN THE PATIENT'S ALTERED LEVEL OF CONSCIOUSNESS, UNRESPONSIVENESS. HISTORY OBTAINED FROM EMS ONLY. NO FAMILY MEMBERS AT BEDSIDE. CONSTITUTIONAL: Denies acute: fever, diaphoresis, chills, generalized weakness. HEAD: Denies acute: headache, photophobia Eyes: Denies acute: Double vision, vision loss, eye pain, eye discharge. EARS: Denies acute: tinnitus, hearing loss, ear discharge, ear pain, THROAT: Denies acute: sore throat, swelling, difficulty swallowing , pain with swallowin g, change in voice. NECK: Denies acute: neck pain, neck swelling, stiff neck. HEART: Denies acute : chest pain, palpitations, LUNGS: Denies acute: SOB, wheezing, cough, hemoptysis ABDOMEN: Denies acute: abdominal pain, Nausea, Vomiting, diarrhea, melena , hematemesis, hematochezia SKIN: Denies acute: rash, redness, lesions, itchiness. EXTREMITIES: Denies acute: calf pain, numbness, tingling, weakness, denies pain in extremity. Denies acute: Low back pain. Neuro: Denies acute: focal neurological deficit, motor or sensory focal neurological deficit, tremors, seizure like activity, confusion, dizziness, change in mental status, loss of bowel or bladder function, cauda equina like symptoms. : Denies acute: dysuria, hematuria, flank pain, increase in urinary frequency. PSYCH: Denies acute: hallucination, suicidal ideation, homicidal ideation. FEMALE: Denies acute: abnormal vaginal bleeding, foul odor, unusual discharge. PHYSICAL EXAM: General: Unresponsive with apneic breathing Head: normocephalic, atraumatic. Neck: supple, trachea is midline, no swelling. Throat: With a GlideScope, patient has a mild bruise swelling above the airway. Not sure of the patient was attempted to be intubated in the feel a knot. Patient has some missing teeth in the front. Eyes:, no erythema, no purulent discharge, no proptosis, no icterus. Heart: Irregular rate and rhythm consistent with AFib with RVR, no significant murmur appreciated. Lungs: Acute respiratory distress unresponsive. Patient was intubated Patient was being bagged by EMS. Later we placed a nasal trumpet in oral adjunct and continued bag-valve masking until we set up for intubation. Abdomen: non distended, soft, no guarding, no rebound, + bowel sounds. Neuro: Unresponsive. Has a gag reflex, vomited few times. Made occasional groaning sounds. Skin: no petechia, no purpura, no cyanosis, non-pale, not jaundice. Lower extremities: --no - Pitting edema no deformity, no focal swelling, no calf TTP. Patient had a good radial palpable pulse. ED COURSE: DISCLAIMER: This medical document was created using an electronic medical record system with voice recognition software and computerized dictation system. Although this document has been carefully reviewed, there might still be some phonetic and typographical errors. Occasional wrong-word or "sound-alike" substitutions may have occurred due to the inherent limitations of voice recognition software. These areas are purely typographical due to imperfections of the software programs and do not reflect any compromise in the patient's medical care. Please read the chart carefully and recognize, using context, where these substitutions have occurred. Chief Complaint: ALOC Time Seen by MD: 10:45 Primary Care Provider: SIMEON Reviewed Notes: Allergies Allergies: Coded Allergies: Cephalosporins (Verified Allergy, Unknown, ITCHING ALL OVER, 04/19/25) Home Meds Active Scripts Prednisone (Prednisone) 20 Mg Tab, 20 MG PO BID for 5 Days, #10 MG Prov:CINDY NAYAK MD 07/31/24 Diphenhydramine Hcl (Benadryl Allergy) 25 Mg Cap, 1 CAP PO TID for 5 Days, #15 CAP 1 Refill Prov:CINDY NAYAK MD 07/31/24 Prednisone (Prednisone) 20 Mg Tab, 40 MG PO DAILY for 6 Days, #5 [facility]/23 Budesonide (Inhalation) (Budesonide) 0.25 Mg/2 Ml Izzy, 0.25 MG IN BID for 30 Days, ML [facility] 10/24/23 Furosemide (Lasix) 20 Mg Tb, 1 TAB PO DAILY for 10 Days, #10 TAB 1 Ref[facility] 10/24/23 Azithromycin (Azithromycin) 500 Mg Tab, 500 MG PO DAILY for 3 Days, #3 TAB [facility] 10/24/23 Ipratropium [place] (Ipratropium [place]) 0.02 % Micaela, 0.5 MG NEB Q4HR for 30 Days, #1 ML Prov[facility] 10/24/23 Ergocalciferol (VITAMIN D 91951 UNIT) 50,000 [place], [address] UNIT PO Q7D for 30 Days, #5 CAP Prov[facility] 10/24/23 Carvedilol (COREG) 3.125 Mg Tab, 6.25 MG PO Q12HR for 30 Days, #120 TAB Prov[facility] 10/24/23 Aspirin (Aspirin Low Dose) 81 Mg Tab, 81 MG PO DAILY for 30 Days, #30 TAB [facility] 10/24/23 Albuterol Sulfate (Ventolin) 2.5 Mg/0.5 Ml Nb, 2.5 MG NEB Q4HR for 30 Days, #1 INH Prov:ANDREW AGUIRRE RESIDENT 10/24/23 Reported Medications Atorvastatin Calcium (ATORVASTATIN CALCIUM) 40 Mg Tab, 1 TAB PO DAILY, #30 TAB 5 Refills 10/23/23 Promethazine Hcl (Promethazine Hcl) 25 Mg Tab, 6.25 MG PO Q6HPRN PRN for FOR COUGH 10/23/23 Fluoxetine Hcl (Fluoxetine Hcl) 10 Mg Cap, 10 MG PO DAILY, MG 10/23/23 Empagliflozin (Jardiance) 10 Mg Tab, 10 MG PO DAILY, TAB 10/23/23 Losartan Potassium (Losartan Potassium) 25 Mg Tab, 1 TAB PO DAILY, #90 TAB 1 Refill 03/21/18 Clonidine Hydrochloride (Clonidine Hcl) 0.1 Mg Tab, 0.1 MG PO, TAB 03/21/18 Donepezil Hydrochloride (DONEPEZIL HCL) 5 Mg Tab, 1 TAB PO DAILY, #30 TAB 5 Refills 03/21/18 Information Source: Patient Past Medical History PAST MEDICAL HISTORY: Asthma, DM, High Lipids, HTN Surgical History: BTL, PTCA 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 Indication: Inability to obtain IV, Other (ICU patient requiring multiple drips) Room prepared for procedure: Yes [employer] performed hand hygien: Yes Maximal sterile barrier precau: Mask/Eye shield, Sterile gown, Cap, Sterlie gloves, Large sterlie drape Skin Preparation: Chlorhexidine gluconate, Providine iodine, Alcohol Skin preparation completely dr: Yes Insertion site: Right, Femoral Central line catheter type: [id number] dialysis Number of lumens: 3 Central line exchanged over a: No Antiseptic ointment applied to: Yes Post Assessment: Chest X-Ray, Proper placement Informed consent obtained: Yes Risks/benefits/alt described: Yes Intubation Indication: Respiratory Insufficiency, Altered Mental Status, Airway Protection Prep: Preoxygenation Pretreated with: Sedation Medicated with: Succinylcholine (200mg ), Other (20mg etomidate) Intubation Approach: Orotracheal (7.0) Intubation size: cm (24 at the lip) Informed consent obtained: No Risks/benefits/alt described: No Notes Emergent CP Differential Dx Differential Diagnosis: A-fib, A-Flutter, Angina, Electrolyte Disorder, Heart Failure, Hyperthyroidism, Hyperventilation, Hypoxia, MAT, NM, PAC's, Pacemaker Malfunction, PSVT, Pulmonary Embolus, PVC's, Renal Failure, Sinus Tachycardia, Torsades De Pointes, Ventricular Dysrhythmia, V-Fib, V-Tach, WPW Differential Diagnosis: Other (DDx include ACS, unstable angina, anxiety, PE, pneumothroax, neoplasm, cardiac ischemia, COPD, asthma, CHF, pleural effusion, t obacco abuse, pneumonia, hypoxia, hypercapnia, anemia., infection/sepsis., pulmonary edema. Asthma, Cardiac tamponade, infection.) X-Ray, Labs, Meds, VS Vital Signs Date Time Temp Pulse Resp B/P (MAP) Pulse Ox O2 Delivery O2 Flow Rate FiO2 04/19/25 11:25 97.5 108 21 221/106 (144) 89 97.5 04/19/25 11:04 112 04/19/25 10:46 97.0 104 18 221/106 (144) 97.0 04/19/25 10:46 104 18 97 Non-Rebreather 15 N/A 04/19/25 10:46 221/106 Lab Test 04/19/25 11:15 Range/Units Urine Color Colorless Yellow Urine Clarity Clear Clear Urine pH 6.5 5.0-9.0 Urine Specific [place] 1.010 1.001-1.035 Urine Protein 1+ H Negative Urine Ketones Trace Negative Urine Blood 2+ H Negative /uL Urine Nitrite Negative Negative Urine Bilirubin Negative Negative Urine Urobilinogen Normal Negative mg/dL Urine Leukocyte Esterase Negative Negative /uL Urine RBC 1 0 - 4 /hpf Urine Microscopic WBC 9 H 0-5 /HPF Urine Squamous Epithelial Cells None seen <5 /hpf Urine Bacteria Few H None Seen /hpf Urine Glucose 4+ H Normal mg/dL Current Medications Medications (Trade) Dose Ordered Sig/Jorden Route Start Time Stop Time Status Last Admin Propofol 100 ml @ 1.773 mls/ hr Q24H IV 04/19/25 11:15 04/19/25 14:03 Piperacillin Sod/ Tazobactam Sod 100 ml @ 100 mls/hr ONCE ONCE IV 04/19/25 11:15 04/19/25 12:14 DC 04/19/25 14:02 Etomidate 40 mg ONCE ONCE IV 04/19/25 10:46 04/19/25 13:38 DC 04/19/25 10:46 Succinylcholine Chloride (Quelicin) 100 mg ONCE ONCE IV 04/19/25 11:00 04/19/25 13:38 DC 04/19/25 11:00 [place] [id number] Ph: [phone] DIAGNOSTIC IMAGING Diagnostic Imaging Report : [id number] Signed PATIENT: SHE MOLINA ACCT: [id number] UNIT: [id number] : 1945 LOC: OVERFLOW ROOM / BED: [address] [place] [address] AGE / SEX: 79 / F ADM STATUS: ADM IN SERVICE 1436 ORDERING PHYSICIAN: MARTHA MADRID DO PROCEDURE(s): CXRP - CHEST PORTABLE REASON: central line placement ORDER NUMBER(s): [id number], ACCESSION NUMBER(s): [id number] XY CHEST PORTABLE, HISTORY: central line placement COMPARISON: XY CHEST PORTABLE on DOS: 04/19/25, XY CHEST XRAY 1 VIEW on DOS: 10/22/23, CHEST PORTABLE on DOS: 09/05/21 XY CHEST PORTABLE on DOS: 04/19/25, XY CHEST XRAY 1 VIEW on DOS: 10/22/23, CHEST PORTABLE on DOS: 09/05/21 TECHNICAL DATA: 1 view of the chest was obtained. FINDINGS: Lines and tubes: ET in the lower/ mid thoracic trachea. No central line is seen. Cardiomediastinal silhouette: normal Pulmonary vasculature: normal Lung expansion: normal Lung airspace: Similar right upper lobe consolidation. Lung interstitium: normal Pleura: normal Pneumothorax: no Bones: Unremarkable Other: no IMPRESSION: Similar right upper lobe consolidation. ET in the lower/ mid thoracic trachea. No central line is seen. ATED BY: MARCUS EVANS MD DICTATED DATE/TIME: 04/19/251556 SIGNED BY: MARCUS EVANS MD SIGNED DATE/TIME: 04/19/251556 CC: [place] [address] Ph: [phone] DIAGNOSTIC IMAGING Diagnostic Imaging Report : [id number] Signed PATIENT: SHE MOLINA ACCT: [id number] UNIT: [id number] : 1945 LOC: ER ROOM / BED: / AGE / SEX: 79 / F ADM STATUS: REG ER SERVICE 1111 ORDERING PHYSICIAN: MARTHA MADRID DO PROCEDURE(s): HWOCT - HEAD WITHOUT CONTRAST REASON: Acute respiratory failure syncope and collapse ORDER NUMBER(s): [id number], ACCESSION NUMBER(s): [id number] CT HEAD WITHOUT CONTRAST INDICATION: Acute respiratory failure syncope and collapse EXAM DATE: 04/19/2025 11:17 AM COMPARISON: None RADIATION DOSE: CTDIvol: 47.81 mGy, DLP: 865.2 mGy*cm PROCEDURE: CT scans of the head were obtained from the vertex to the skull base. Sagittal and coronal reconstructions were provided. All CT scans at this medical facility are performed using dose modulation techniques as appropriate to a performed exam including the following: Automated exposure control was utilized; adjustment of the MA and/or KV according to patient size; and use of iterative reconstruction technique. FINDINGS: There is sulcal and ventricular prominence. The brainshows normal morphology and mendoza-white matter differentiation, without intracranial hemorrhage, extra-axial fluid collection, mass effect or acute large vessel infarct. The ventricles are normal in size. The basal cisterns are patent. The skull and visible facial bones are intact. The paranasal sinuses, mastoid air cells and middle ear cavities are well-aerated. The soft tissues of the scalp are unremarkable. IMPRESSION: No acute intracranial abnormality. ATED BY: MARCUS EVANS MD DICTATED DATE/TIME: 04/19/25 1149 SIGNED BY: MARCUS EVANS MD SIGNED DATE/TIME: 04/19/25 1149 CC: [place] [address] Ph: [phone] DIAGNOSTIC IMAGING Diagnostic Imaging Report : [id number] Signed PATIENT: SHE MOLINA ACCT: [id number] UNIT: [id number] : 1945 LOC: OVERFLOW ROOM / BED: [facility] / A AGE / SEX: 79 / F ADM STATUS: ADM IN SERVICE 1111 ORDERING PHYSICIAN: MARTHA MADRID DO PROCEDURE(s): CXRP - CHEST PORTABLE REASON: Acute respiratory failure ORDER NUMBER(s): [id number], ACCESSION NUMBER(s): [id number] XY CHEST PORTABLE, HISTORY: Acute respiratory failure COMPARISON: XY CHEST XRAY 1 VIEW on DOS: 10/22/23, CHEST PORTABLE on DOS: 09/05/21 XY CHEST XRAY 1 VIEW on DOS: 10/22/23, CHEST PORTABLE on DOS: 09/05/21 TECHNICAL DATA: 1 view of the chest was obtained. FINDINGS: Lines and tubes: ET in the lower thoracic trachea near the right mainstem, consider retraction by 3 cm. Cardiomediastinal silhouette: normal Pulmonary vasculature: normal Lung expansion: normal Lung airspace: Similar right upper lobe consolidation. Lung interstitium: normal Pleura: normal Pneumothorax: no Bones: Unremarkable Other: NG in the stomach. IMPRESSION: ET in the lower thoracic trachea near the right mainstem, consider retraction by 3 cm. Similar right upper lobe consolidation. ATED BY: MARCUS EVANS MD DICTATED DATE/TIME: 04/19/25 1351 SIGNED BY: MARCUS EVANS MD SIGNED DATE/TIME: 04/19/25 1351 CC: [address] [id number] Ph: [phone] DIAGNOSTIC IMAGING Diagnostic Imaging Report : [id number] Signed PATIENT: SHE MOLINA ACCT: [id number] UNIT: [id number] : 1945 LOC: OVERFLOW ROOM / BED: [facility] / A AGE / SEX: 79 / F ADM STATUS: ADM IN SERVICE 1111 ORDERING PHYSICIAN: MARTHA MADRID DO PROCEDURE(s): CS2 - CERVICAL WITHOUT CONTRAST REASON: Acute respiratory failure/syncope and collapse ORDER NUMBER(s): [id number], ACCESSION NUMBER(s): [id number] EXAM: CT CERVICAL WITHOUT CONTRAST INDICATION: Acute respiratory failure/syncope and collapse EXAM DATE: 04/19/2025 11:19 AM COMPARISON: None TECHNIQUE: Multiple axial CT images of the cervical spine were obtained using bone algorithm. Axial and coronal reformatting was done. Bone and soft tissue windows were reviewed. Radiation Dose Information: CT Dose: CTDI volume is 19.82 mGy. Dose-length product is 448.04 mGy*cm FINDINGS: The cervical alignment is intact. No acute cervical spine fracture is identified. The vertebral body heights are intact. No suspicious osseous lesions are identified. Mild degenerative changes throughout the cervical spine Consolidation is seen in the right lung apex. IMPRESSION: 1. No evidence of acute cervical spine fracture or traumatic malalignment. 2. Consolidation is seen in the right lung apex which may reflect pneumonia 3. All CT scans at this medical facility are performed using dose modulation techniques as appropriate to a performed exam including the following: Automated exposure control was utilized; adjustment of the MA and/or KV according to patient size; and use of iterative reconstruction technique. ATED BY: MARIAM ALONSO MD DICTATED DATE/TIME: 04/19/25 1213 SIGNED BY: MARIAM ALONSO MD SIGNED DATE/TIME: 04/19/25 1213 CC: Time of 1ST Reevaluation: 11:16 Reevaluation 1ST: Unchanged Time of 2ND Reevaluation: 11:58 (All labs are still pending) Patient Education/Counseling: Other (patient is intubated ) Family Education/Counseling: Diagnosis, Treatment Comments Patient was evaluated immediately upon arrival. Patient was in acute respiratory failure with atrial fibrillation with RVR and hypertensive crisis. Patient was not arousable. IV access was established and patient was intubated successfully from 1st attempt by GlideScope. Pads were placed on the patient's chest. Later adds states that the patient had a bruise in her chest from watery in the garden the other day and the hose hit her chest. He also said that the patient was normal this morning but someone confused and discoordinated in the last few days. After successful intubation, OG tube was placed and Gómez catheter was placed. Patient required a lot of suctioning. Bag-valve mask was also performed to preoxygenated the patient well. Patient has multiple missing teeth not sure if this is acute or chronic. I suspected aspiration pneumonia given that the patient was vomiting few times while she was waiting to be intubated. Suctioning was applied and patient was rolled to her left side. Patient was started on empiric antibiotics Zosyn Patient was found hyperglycemic. Insulin 5 units IV were ordered by myself. Stand by orders of Levophed as needed although patient did not needed during her ED course under my care. Patient was given etomidate and Versed for sedation and succinylcholine for paralytics. CT scan of the head and cervical spine were obtained Right femoral central line was placed successfully. was consent to the bedside. Medicine team placed a Cardiology consult. Patient's atrial fibrillation with RVR rate improved Departure 1 Departure Time of Disposition: 11:16 Impression: Primary Impression: Acute respiratory failure Additional Impressions: Atrial fibrillation with RVR Syncope and collapse Aspiration pneumonia UTI (urinary tract infection) Sepsis Elevated troponin Lung consolidation Disposition: ADMITTED INPATIENT Admit to: ICU Condition: Critical Discharged With: Self Critical Care Note Critical Care Time?: Yes (>90min-critical care time only) Heart Score Heart Score: Heart Score Response (Comments) Value History Moderate Suspicious 1 EKG Repolarization Disturb 1 Age >65 2 Risk Factors >3 or Hx ASHD 2 Troponin >3 x's Normal limit 2 Total 8 I personally scribed for MARTHA MADRID DO ([email or web address]) on 04/19/25 at 11:56. Electronically submitted by Chu Zhou ([email or web address]). I personally scribed for MARTHA MADRID DO ([email or web address]) on 04/19/25 at 15:00. Electronically submitted by Chu Zhou ([email or web address]). I personally scribed for MARTHA MADRID DO ([email or web address]) on 04/19/25 at 15:15. Electronically submitted by Chu Zhou ([email or web address]). I personally scribed for MARTHA MADRID DO ([email or web address]) on 04/19/25 at 21:00. Electronically submitted by Chu Zhou ([email or web address]). MARTHA MADRID DO Apr 19, 2025 11:56
[2025-04-19 12:11] LABS: Basophils # (auto) 0 10 ^3/uL (0-0.2); Basophils % (auto) 0.3 % (0.0-2.0); Eosinophils # (auto) 0.1 10 ^3/uL (0-0.8); Eosinophils % (auto) 0.6 % (0.0-7.0); Hematocrit 46.5 % (36.0-46.0); Hemoglobin 15.6 g/dL (12.2-16.2); Lymphocytes # (auto) 2.4 10 ^3/uL (0.4-5.4); Lymphocytes % (auto) 16.6 % (10.0-50.0); Mean Corpuscular Hemoglobin 30.6 pg (28.0-32.0); Mean Corpuscular Hgb Conc. 33.4 g/dL (32.0-36.0); Mean Corpuscular Volume 91.4 fL (80.0-100.0); Monocytes # (auto) 0.6 10 ^3/uL (0-1.3); Monocytes % (auto) 3.9 % (0.0-12.0); Neutrophils # (auto) 11.5 10 ^3/uL (1.6-8.6); Neutrophils % (auto) 78.6 % (37.0-80.0); Platelet Count (auto) 101 10^3/uL (140-450); Red Blood Cells 5.09 10^6/uL (4.0-5.20); Red Cell Distribution Width 13.2 % (11.8-14.3); White Blood Cell 14.6 10^3/uL (4.4-10.8)
--- NOTE | 2025-04-19 12:15 | DVH ---
EXAM: CT CERVICAL WITHOUT CONTRAST INDICATION: Acute respiratory failure/syncope and collapse EXAM DATE: 04/19/2025 11:19 AM COMPARISON: None TECHNIQUE: Multiple axial CT images of the cervical spine were obtained using bone algorithm. Axial a nd coronal reformatting was done. Bone and soft tissue windows were reviewed. Radiation Dose Information: CT Dose: CTDI volume is 19.82 mGy. Dose-length product is 448.04 mGy*cm FINDINGS: The cervical alignment is intact. No acute cervical spine fracture is identified. The vertebral body heights are intact. No suspicious osseous lesions are identified. Mild degenerative changes throughout the cervical spine Consolidation is seen in the right lung apex. IMPRESSION: 1. No evidence of acute cervical spine fracture or traumatic malalignment. 2. Consolidation is seen in the right lung apex which may reflect pneumonia 3. All CT scans at this medical facility are performed using dose modulation techniques as appropriat e to a performed exam including the following: Automated exposure control was utilized; adjustment of the MA and/or KV according to patient size; and use of iterative reconstruction technique.
[2025-04-19 12:33] LABS: Alanine Aminotransferase 14 U/L (7-40); Albumin 3.7 g/dL (3.2-4.8); Alkaline Phosphatase 68 U/L (46-116); Anion Gap 15 (5-15); Aspartate Aminotransferase 26 U/L (<34); BUN/Creatinine Ratio 27.2 (10.0-20.0); Carbon Dioxide 24 mmol/L (20-31); Chloride 99 mmol/L (98-107); Potassium 4.3 mmol/L (3.5-5.1); Sodium 138 mmol/L (136-145); Total Protein 6.5 g/dL (5.7-8.2)
[2025-04-19 12:34] LABS: Bilirubin, Total 0.9 mg/dL (0.2-1.0)
[2025-04-19 12:36] LABS: Blood Urea Nitrogen 31 mg/dL (9-23); Calcium 8.7 mg/dL (8.7-10.4); Magnesium 1.6 mg/dL (1.6-2.6)
[2025-04-19 12:42] LABS: Glucose 441 mg/dL (74-106); Lactic Acid w/Reflex 3.1 mmol/L (0.4-2.0)
[2025-04-19 13:02] LABS: Base Excess -4.5 mmol/L (-2.0-3.0)
--- NOTE | 2025-04-19 13:54 | DVH ---
XY CHEST PORTABLE, HISTORY: Acute respiratory failure COMPARISON: XY CHEST XRAY 1 VIEW on DOS: 10/22/23, CHEST PORTABLE on DOS: 09/05/21 XY CHEST XRAY 1 VIEW on DOS: 10/22/23, CHEST PORTABLE on DOS: 09/05/21 TECHNICAL DATA: 1 view of the chest was obtained. FINDINGS: Lines and tubes: ET in the lower thoracic trachea near the right mainstem, consider retraction by 3 c m. Cardiomediastinal silhouette: normal Pulmonary vasculature: normal Lung expansion: normal Lung airspace: Similar right upper lobe consolidation. Lung interstitium: normal Pleura: normal Pneumothorax: no Bones: Unremarkable Other: NG in the stomach. IMPRESSION: ET in the lower thoracic trachea near the right mainstem, consider retraction by 3 cm. Similar right upper lobe consolidation.
[2025-04-19] MEDS: NOREPINEPHRINE 8 MG/250ML KIT 250 ML IV SCH (13:55)
[2025-04-19] MEDS: NOREPINEPHRINE 8 MG/250ML KIT 250 ML IV ONE (13:56)
[2025-04-19] MEDS: PIPERACILLIN-TAZOB 3.375GM 100 ML IV ONE (14:02)
[2025-04-19] MEDS: PROPOFOL 100 ML IV SCH (14:03)
[2025-04-19] MEDS: ACCU-CHEK COMFORT CURVE STRIP VI SCH (14:03)
[2025-04-19] MEDS: PHENYLEPHRINE IV 250 ML IV SCH (14:03)
[2025-04-19] MEDS: ERGOCALCIFEROL 50,000 UNIT(1.25MG) CAP PO SCH (14:04)
[2025-04-19] MEDS: ENOXAPARIN SOD 40 MG/0.4 ML SYRINGE SC SCH (14:08)
[2025-04-19] MEDS: InsuLIN REG 1unit/0.01ml Soln (100units/ml) SC SCH (14:31)
[2025-04-19] MEDS: InsuLIN REG 1unit/0.01ml Soln (100units/ml) ONE (14:32)
[2025-04-19] MEDS: InsuLIN REG 1unit/0.01ml Soln (100units/ml) IV ONE (14:52)
[2025-04-19] MEDS: VANCOMYCIN 1.25GM/250ML 250 ML IV ONE (14:53)
--- NOTE | 2025-04-19 15:27 | DVHINCON2 ---
Date of service: Apr 19, 2025 Referring Physician Rody Almazan Np Reason for Consultation Acute respiratory failure History of Present Illness History Source: Patient, RN Notes, MD Notes Exam Limitations: Clinical condition HPI Patient is an 79-year old lady with a history of cardiomyopathy, afib, hypertension, COPD and recent episode of pneumonia who presented with altered mental status. Was seen in the emergency room where the concern was raised for airway protection and the patient was subsequently intubated. CT of the brain was negative for acute abnormalities and she was admitted for further workup. Pulmonology was consulted to assist in ventilator management. Home Meds Active Scripts Prednisone (Prednisone) 20 Mg Tab, 20 MG PO BID for 5 Days, #10 MG Prov:CINDY NAYAK MD 07/31/24 Diphenhydramine Hcl (Benadryl Allergy) 25 Mg Cap, 1 CAP PO TID for 5 Days, #15 CAP 1 Refill Prov:CINDY NAYAK MD 07/31/24 Prednisone (Prednisone) 20 Mg Tab, 40 MG PO DAILY for 6 Days, #5 [facility] 10/24/23 Budesonide (Inhalation) (Budesonide) 0.25 Mg/2 Ml Izzy, 0.25 MG IN BID for 30 Days, ML [facility] 10/24/23 Furosemide (Lasix) 20 Mg Tb, 1 TAB PO DAILY for 10 Days, #10 TAB 1 [facility] 10/24/23 Azithromycin (Azithromycin) 500 Mg Tab, 500 MG PO DAILY for 3 Days, #3 TAB [facility] 10/24/23 Ipratropium [place] (Ipratropium [place]) 0.02 % Micaela, 0.5 MG NEB Q4HR for 30 Days, #1 ML [facility] 10/24/23 Ergocalciferol (VITAMIN D 83154 UNIT) 50,000 [place], [address] UNIT PO Q7D for 30 Days, #5 CAP [facility] 10/24/23 Carvedilol (COREG) 3.125 Mg Tab, 6.25 MG PO Q12HR for 30 Days, #120 TAB [facility] 10/24/23 Aspirin (Aspirin Low Dose) 81 Mg Tab, 81 MG PO DAILY for 30 Days, #30 TAB Prov:ANDREW AGUIRRE [facility] 10/24/23 Albuterol Sulfate (Ventolin) 2.5 Mg/0.5 Ml Nb, 2.5 MG NEB Q4HR for 30 Days, #1 INH Prov:ANDREW AGUIRRE [facility] 10/24/23 Reported Medications Atorvastatin Calcium (ATORVASTATIN CALCIUM) 40 Mg Tab, 1 TAB PO DAILY, #30 TAB 5 Refills 10/23/23 Promethazine Hcl (Promethazine Hcl) 25 Mg Tab, 6.25 MG PO Q6HPRN PRN for FOR COUGH 10/23/23 Fluoxetine Hcl (Fluoxetine Hcl) 10 Mg Cap, 10 MG PO DAILY, MG 10/23/23 Empagliflozin (Jardiance) 10 Mg Tab, 10 MG PO DAILY, TAB 10/23/23 Losartan Potassium (Losartan Potassium) 25 Mg Tab, 1 TAB PO DAILY, #90 TAB 1 Refill 03/21/18 Clonidine Hydrochloride (Clonidine Hcl) 0.1 Mg Tab, 0.1 MG PO, TAB 03/21/18 Donepezil Hydrochloride (DONEPEZIL HCL) 5 Mg Tab, 1 TAB PO DAILY, #30 TAB 5 Refills 03/21/18 Past Medical History Cardiac: AFIB, HTN, Cardiomyopathy Pulmonary: COPD Central Nervous System: No pertinent Hx GI: No pertinent Hx Hemotology/Oncology: No pertinent Hx Hepatobiliary: No pertinent Hx Psychiatric: No pertinent Hx Musculoskeletal: No pertinent Hx Rheumotologic: No pertinent Hx Infectious Disease: No peritnent Hx ENT: No pertinent Hx Renal/: No pertinent Hx Endocrine: No pertinent Hx Dermatology: No pertinent Hx Past Surgical History: No pertinent Hx Family History: CAD, DM, Hypertension Patient Family History: Asthma G8 MOTHER, Onset:Unknown G8 SISTER Diabetes mellitus G8 MOTHER FH: myocardial infarction G8 MOTHER, Onset:Unknown Hypertension G8 MOTHER G8 SISTER Thyroid disease G8 SISTER G8 SISTER Smoker: No Hx (Negative) Alocohol: None Drugs: None Lives with: With family Domestic Violence: Neg Review of Systems Comments unable to perform d/t intubated status Constitutional: No symptom reported Ears, Nose, & Throat: No symptom reported Eyes: No symptom reported Pulmonary/Respiratory: No symptom reported Cardiovascular: No symptom reported Gastrointestinal: No symptom reported Genitourinary: No symptom reported Musculoskeletal: No symptom reported Skin: No symptom reported Psychiatric: No symptom reported Endocrine: No symptom reported Hemotologic/Lymphatic: No symptom reported H&P Exam Vital Signs Vital Signs Date Time Temp Pulse Resp B/P (MAP) Pulse Ox O2 Delivery O2 Flow Rate FiO2 04/19/25 14:03 206/116 04/19/25 13:56 94 04/19/25 11:40 22 100 80 04/19/25 11:25 97.5 97.5 04/19/25 10:46 Non-Rebreather 15 General Appeara: Well developed, Well nourished, Normal Appearance Head Exam: Normal inspection Neck Exam: Normal inspection, Non-tender, Normal alignment Eye Exam: bilateral eye Normal inspection, bilateral eye PERRL, bilateral eye EOMI Nasal Exam: Normal inspection Mouth: Normal Inspection Pulmonary/Respiratory: Decreased breath sounds Cardiovascular/Chest: Normal inspection Peripheral Pulses: 4+ Radial (R), 4+ Radial (L), 4+ Brachial (R), 4+ Brachial (L) Abdominal Exam: Normal bowel sounds Labs/Xrays Labs Test 04/19/25 14:55 04/19/25 12:32 04/19/25 11:50 04/19/25 11:15 Range/Units Blood Gas Specimen Type Arterial Blood Gas Sample Site Left radial Blood Gas Patient Temperature 37.0 Arterial Blood Date Drawn [id number] Arterial Blood pH 7.367 7.350-7.450 Arterial Blood Partial Pressure CO2 35.6 32.0-45.0 mmHg Arterial Blood Partial Pressure O2 366.7 *H 83.0-108.0 mmHg Arterial Blood HCO3 20.0 L 21.0-28.0 mmol/L Arterial Blood Oxygen Saturation 99.8 H 94.0-98.0 % Arterial Blood Base Excess -4.5 L -2.0-3.0 mmol/L Arterial Blood Oxyhemoglobin 98.4 H 94.0-98.0 % Arterial Blood Carboxyhemoglobin 0.7 0.5-1.5 % Arterial Blood Methemoglobin 0.7 0.0-1.5 % Benny Test Modified Blood Gas Total Hemoglobin 15.80 12.0-16.0 g/dL Blood Gas Set Respiration Rate 22.0 Blood Gas Modality Vent - ac Blood Gas Spontaneous Rate 22 FiO2 % 80.0 Blood Gas Tidal Volume 300.0 Blood Gas PEEP or CPAP 5.0 Blood Gas Critical Value Read Back Yes Blood Gas Notified Whom Dr. bear Blood Gas Notified Time [id number] Blood Gas Notified By Dr. bear White Blood Count 14.6 H 4.4-10.8 10^3/uL Red Blood Count 5.09 4.0-5.20 10^6/uL Hemoglobin 15.6 12.2-16.2 g/dL Hematocrit 46.5 H 36.0-46.0 % Mean Corpuscular Volume 91.4 80.0-100.0 fL Mean Corpuscular Hemoglobin 30.6 28.0-32.0 pg Mean Corpuscular Hemoglobin Concent 33.4 32.0-36.0 g/dL Red Cell Distribution Width 13.2 11.8-14.3 % Platelet Count 101 L 140-450 10^3/uL Mean Platelet Volume 9.0 6.9-10.8 fL Neutrophils (%) (Auto) 78.6 37.0-80.0 % Lymphocytes (%) (Auto) 16.6 10.0-50.0 % Monocytes (%) (Auto) 3.9 0.0-12.0 % Eosinophils (%) (Auto) 0.6 0.0-7.0 % Basophils (%) (Auto) 0.3 0.0-2.0 % Neutrophils # (Auto) 11.5 H 1.6-8.6 10 ^3/uL Lymphocytes # (Auto) 2.4 0.4-5.4 10 ^3/uL Monocytes # (Auto) 0.6 0-1.3 10 ^3/uL Eosinophils # (Auto) 0.1 0-0.8 10 ^3/uL Basophils # (Auto) 0 0-0.2 10 ^3/uL Nucleated Red Blood Cells 0.0 % Sodium Level 138 136-145 mmol/L Potassium Level 4.3 3.5-5.1 mmol/L Chloride Level 99 98-107 mmol/L Carbon Dioxide Level 24 20-31 mmol/L Anion Gap 15 5-15 Blood Urea Nitrogen 31 H 9-23 mg/dL Creatinine 1.14 H 0.550-1.02 mg/dL Glomerular Filtration Rate Calc 48 >90 mL/min BUN/Creatinine Ratio 27.2 H 10.0-20.0 Serum Glucose 441 *H 74-106 mg/dL Hemoglobin A1c 13.3 H <5.7 % A1C Calcium Level 8.7 8.7-10.4 mg/dL Magnesium Level 1.6 1.6-2.6 mg/dL Total Bilirubin 0.9 0.2-1.0 mg/dL Aspartate Amino Transferase (AST) 26 <34 U/L Alanine Aminotransferase (ALT) 14 7-40 U/L Alkaline Phosphatase 68 46-116 U/L B-Type Natriuretic Peptide 144.83 0-100 pg/mL Total Protein 6.5 5.7-8.2 g/dL Albumin 3.7 3.2-4.8 g/dL Urine Color Colorless Yellow Urine Clarity Clear Clear Urine pH 6.5 5.0-9.0 Urine Specific Zoe 1.010 1.001-1.035 Urine Protein 1+ H Negative Urine Ketones Trace Negative Urine Blood 2+ H Negative /uL Urine Nitrite Negative Negative Urine Bilirubin Negative Negative Urine Urobilinogen Normal Negative mg/dL Urine Leukocyte Esterase Negative Negative /uL Urine RBC 1 0 - 4 /hpf Urine Microscopic WBC 9 H 0-5 /HPF Urine Squamous Epithelial Cells None seen <5 /hpf Urine Bacteria Few H None Seen /hpf Urine Glucose 4+ H Normal mg/dL Assessment/Plan Plan Impression Acute hypoxemic respiratory failure Altered mental status Elevated troponin NSTEMI Patient seen and examined Events On mechanical ventilation S/p intubation PEEP 5, FiO2 30% Labs and imaging reviewed CT brain negative for acute abnormalities Chest x-ray shows localized bronchiectasis, right upper lobe Troponin elevated consistent with NSTEMI ABG reviewed pH 7.36, pCO2 35, pO2 366 Management Vent support Titrate to maintain sats 90% or above Sedation for vent synchrony Antibiotics F/u cultures Bronchodilators Monitor renal function Monitor electrolytes Supplement as needed Pressors as needed for hemodynamic support To maintain a mean arterial pressure of 65 mmHg F/u cardiology DVT prophylaxis Critical care time 35 minutes Plan discussed with: Other (Rn) ILDA PARIKH MD Apr 19, 2025 15:27
--- NOTE | 2025-04-19 16:00 | DVH ---
XY CHEST PORTABLE, HISTORY: central line placement COMPARISON: XY CHEST PORTABLE on DOS: 04/19/25, XY CHEST XRAY 1 VIEW on DOS: 10/22/23, CHEST PORTABLE on DOS: 09/05/21 XY CHEST PORTABLE on DOS: 04/19/25, XY CHEST XRAY 1 VIEW on DOS: 10/22/23, CHEST PORTABLE on DOS: 09/05 TECHNICAL DATA: 1 view of the chest was obtained. FINDINGS: Lines and tubes: ET in the lower/ mid thoracic trachea. No central line is seen. Cardiomediastinal silhouette: normal Pulmonary vasculature: normal Lung expansion: normal Lung airspace: Similar right upper lobe consolidation. Lung interstitium: normal Pleura: normal Pneumothorax: no Bones: Unremarkable Other: no IMPRESSION: Similar right upper lobe consolidation. ET in the lower/ mid thoracic trachea. No central line is seen.
--- NOTE | 2025-04-19 18:06 | DVHSR ---
APPROVED REPORT EXAM: Two-dimensional and M-mode echocardiogram with Doppler and color Doppler. Blood Pressure: 221/106 mmHg INDICATION Syncope RISK FACTORS Height: 5'2, Weight: 130 DIMENSIONS LVDd4.1 (3.8-5.7cm)LA (2D)4.6 (1.9-4.0cm)Aortic Root3.6 (2.0-3.7cm) LVDs3.2 (2.5-4.0cm)LA (MM) (1.9-4.0cm)Aortic Cusp Exc1.0 (1.5-2.0cm) EF (%) 45.0 (55-70%)Rt. Atrium4.0 (1.9-4.0cm)Asc. Aorta cm IVSd1.1 (0.7-1.1cm)RV (D) (1.8-2.4cm) PWd1.0 (0.7-1.1cm) Mitral Valve MitralMitral Stenosis E wave0.99m/sMV Mean GR.1mmHg A wavem/sMV Peak GR.3mmHg E/A ratio0.02D MVAcm2 DECEL [id number] 1/2 Timems Aortic Valve Aortic ValveAortic Stenosis V10.64m/Serjio Mean GR.3mmHg V21.19m/Serjio Peak GR.6mmHg LVOT Diameter1.9 (1.8-2.4cm)Doppler AVA1.52cm2 Pulmonic Valve V20.96m/s Other Information Technically limited study due to on vent.leaning on right side Conclusion APICAL AND ANTERIOR WALL SEVERE HYPOKINESIS LV EF IS 40% AND IS REDUCED NORMAL VALVES AORTIC SCLEROSIS BUT NO STENOSIS MODERATELY DILATED LA NO EFFUSION
[2025-04-19] MEDS ORDERED: HEPARIN DRIP/D5W 100UNITS/ML 250 ML IV SCH (18:15)
[2025-04-19 18:59] LABS: Basophils # (auto) 0 10 ^3/uL (0-0.2); Basophils % (auto) 0.1 % (0.0-2.0); Eosinophils # (auto) 0 10 ^3/uL (0-0.8); Eosinophils % (auto) 0.1 % (0.0-7.0); Hematocrit 46.2 % (36.0-46.0); Hemoglobin 15.5 g/dL (12.2-16.2); Lymphocytes # (auto) 1.4 10 ^3/uL (0.4-5.4); Lymphocytes % (auto) 6.9 % (10.0-50.0); Mean Corpuscular Hemoglobin 30.5 pg (28.0-32.0); Mean Corpuscular Hgb Conc. 33.6 g/dL (32.0-36.0); Mean Corpuscular Volume 90.8 fL (80.0-100.0); Neutrophils % (auto) 87.9 % (37.0-80.0); Nucleated Red Blood Cells % 0.2 %; Platelet Count (auto) 100 10^3/uL (140-450); Red Blood Cells 5.09 10^6/uL (4.0-5.20); Red Cell Distribution Width 13.1 % (11.8-14.3); White Blood Cell 20.5 10^3/uL (4.4-10.8)
[2025-04-19 19:18] LABS: INR 1.22 (0.9-1.15); Partial Thromboplastin Time 25.1 SEC (24.5-34.5); Prothrombin Time 12.7 sec (9.3-11.8)
[2025-04-19] MEDS: HEPARIN DRIP/D5W 100UNITS/ML 250 ML IV SCH (20:01)
[2025-04-19] MEDS: ATORVASTATIN 20 MG TAB PO SCH (21:43)
[2025-04-19] MEDS: PIPERACILLIN-TAZOB 3.375GM 100 ML IV SCH (21:43)
[2025-04-19] MEDS ORDERED: CARVEDILOL 3.125 MG TAB PO SCH (22:00)
--- NOTE | 2025-04-19 22:27 | ECG ---
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
--- NOTE | 2025-04-19 22:27 | ECG ---
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
--- NOTE | 2025-04-19 22:28 | ECG ---
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
--- NOTE | 2025-04-19 23:45 | DVHINCON2 ---
Date of service: Apr 19, 2025 Referring Physician Norah Reason for Consultation Elevated troponin History of Present Illness This is a 79-year-old female with a past medical history of hypertension, hyperlipidemia, diabetes type 2, COPD, asthma, COVID-19, pneumonia, right upper lobe lung mass that was ruled out for lung cancer at [facility], cataracts, left lung scarring, dementia, PTCA, BTL, and oophorectomy who was brought in by EMS due to ALOC. Patient had 2 syncopal episodes at home. 1st in her backyard and unwitnessed. 2nd witnessed and assisted to the couch by . Patient then awoke and vomited right afterwards, then became unresponsive. EMS administered Narcan by EMS en route with no response. Patient intubated for airway protection. WBC 14.6, BUN 31, BEHAVIORAL SPECIALIST 1.14, LA 3.1. Troponin 296 > 506 > 2295. Chest x-ray shows NAD. CT C-spine shows o evidence of acute cervical spine fracture or traumatic malalignment. CT head: no acute intracranial abnormality.Patient was admitted to the hospital. I am asked to consult on this patient. Family History: Asthma G8 MOTHER, Onset:Unknown G8 SISTER Diabetes mellitus G8 MOTHER FH: myocardial infarction G8 MOTHER, Onset:Unknown Hypertension G8 MOTHER G8 SISTER Thyroid disease G8 SISTER G8 SISTER Allergies: Coded Allergies: Cephalosporins (Verified Allergy, Unknown, ITCHING ALL OVER, 04/19/25) Home Meds Active Scripts Prednisone (Prednisone) 20 Mg Tab, 20 MG PO BID for 5 Days, #10 MG Prov:CINDY NAYAK MD 07/31/24 Diphenhydramine Hcl (Benadryl Allergy) 25 Mg Cap, 1 CAP PO TID for 5 Days, #15 CAP 1 Refill Prov:CINDY NAYAK MD 07/31/24 Prednisone (Prednisone) 20 Mg Tab, 40 MG PO DAILY for 6 Days, #5 MG Prov:ANDREW AGUIRRE 10/24/23 Budesonide (Inhalation) (Budesonide) 0.25 Mg/2 Ml Izzy, 0.25 MG IN BID for 30 Days, ML Prov:ANDREW AGUIRRE 10/24/23 Furosemide (Lasix) 20 Mg Tb, 1 TAB PO DAILY for 10 Days, #10 TAB 1 Refill Prov:ANDREW AGUIRRE 10/24/23 Azithromycin (Azithromycin) 500 Mg Tab, 500 MG PO DAILY for 3 Days, #3 TAB Prov:ANDREW AGUIRRE 10/24/23 Ipratropium [place] (Ipratropium [place]) 0.02 % Micaela, 0.5 MG NEB Q4HR for 30 Days, #1 ML Prov:ANDREW AGUIRRE 10/24/23 Ergocalciferol (VITAMIN D 12214 UNIT) 50,000 [place], [address] UNIT PO Q7D for 30 Days, #5 CAP Prov:ANDREW AGUIRRE 10/24/23 Carvedilol (COREG) 3.125 Mg Tab, 6.25 MG PO Q12HR for 30 Days, #120 TAB Prov:ANDREW AGUIRRE [facility] 10/24/23 Aspirin (Aspirin Low Dose) 81 Mg Tab, 81 MG PO DAILY for 30 Days, #30 TAB Prov:ANDREW AGUIRRE 10/24/23 Albuterol Sulfate (Ventolin) 2.5 Mg/0.5 Ml Nb, 2.5 MG NEB Q4HR for 30 Days, #1 INH Prov:ANDREW AGUIRRE [facility] 10/24/23 Reported Medications Atorvastatin Calcium (ATORVASTATIN CALCIUM) 40 Mg Tab, 1 TAB PO DAILY, #30 TAB 5 Refills 10/23/23 Promethazine Hcl (Promethazine Hcl) 25 Mg Tab, 6.25 MG PO Q6HPRN PRN for FOR COUGH 10/23/23 Fluoxetine Hcl (Fluoxetine Hcl) 10 Mg Cap, 10 MG PO DAILY, MG 10/23/23 Empagliflozin (Jardiance) 10 Mg Tab, 10 MG PO DAILY, TAB 10/23/23 Losartan Potassium (Losartan Potassium) 25 Mg Tab, 1 TAB PO DAILY, #90 TAB 1 Refill 03/21/18 Clonidine Hydrochloride (Clonidine Hcl) 0.1 Mg Tab, 0.1 MG PO, TAB 03/21/18 Donepezil Hydrochloride (DONEPEZIL HCL) 5 Mg Tab, 1 TAB PO DAILY, #30 TAB 5 Refills 03/21/18 Current Medications Current Medications Medications (Trade) Dose Ordered Sig/Jorden Route PRN Reason Start Time Stop Time Status Last Admin Norepinephrine Bitartrate 250 ml @ 3.75 mls/hr Q24H IV 04/19/25 11:15 Propofol 100 ml @ 1.773 mls/ hr Q24H IV 04/19/25 11:15 04/19/25 14:03 Ondansetron HCl (Zofran) 4 mg Q4HP PRN IV NAUSEA / VOMITING 04/19/25 11:30 Acetaminophen (Tylenol Tablet) 650 mg Q6HP PRN PO PAIN SCALE 1-3 OR TEMP>100.4 04/19/25 11:30 Nitroglycerin (Ntrostat Sublingual) 0.4 mg Q5MINP PRN SL FOR CHEST PAIN 04/19/25 11:30 Morphine Sulfate 2 mg Q30M PRN IV FOR CHEST PAIN 04/19/25 11:30 Aspirin (Ecotrin Enteric Coated Tablet) 81 mg DAILY PO 04/20/25 10:00 Carvedilol (Coreg Tablet) 6.25 mg Q12HR PO 04/19/25 22:00 Hold Ergocalciferol (Vitamin D 50,000 Unit) 50,000 unit Q7D PO 04/19/25 11:45 Atorvastatin Calcium (Lipitor) 40 mg HS PO 04/19/25 22:00 04/19/25 21:43 Enoxaparin Sodium (Lovenox) 40 mg DAILY SC 04/19/25 11:45 04/19/25 18:09 DC 04/19/25 14:08 Vancomycin HCl 0 ml @ 0 mls/hr UD IV 04/19/25 11:45 Piperacillin Sod/ Tazobactam Sod 100 ml @ 25 mls/hr Q8HR IV 04/19/25 22:00 04/19/25 21:43 Diagnostic Test (Pha) (Accu-Chek Comfort Curve T) 1 strip Q6HR 04/19/25 12:00 04/19/25 18:23 Insulin Human Regular (InsuLIN R) Q6HR SC 04/19/25 12:00 04/19/25 18:56 Dextrose 50 ml UD PRN IV Blood Sugar LESS THAN 60 04/19/25 12:00 Midazolam HCl 50 ml @ 1 mls/hr Q24H IV 04/19/25 12:15 04/19/25 10:46 Phenylephrine HCl 250 ml @ 30 mls/hr Q8H20M IV 04/19/25 12:30 Aspirin 81 mg DAILY PO 04/20/25 10:00 Heparin Sodium/ Dextrose 250 ml @ 7.08 mls/hr Q24H IV 04/19/25 18:15 UNV Heparin Sodium/ Dextrose 250 ml @ 7 mls/hr Q24H IV 04/19/25 20:00 04/19/25 20:01 Review of Systems Unable to review: patient intubated on ventilator. Vital Signs Vital Signs Date Time Temp Pulse Resp B/P (MAP) Pulse Ox O2 Delivery O2 Flow Rate FiO2 04/19/25 21:39 120 32 128/75 (92) 100 50 04/19/25 19:15 100.6 213.1 04/19/25 18:00 Mechanical Ventilator+ 04/19/25 10:46 15 Physical Exam GENERAL: Ill appearing, intubated on ventilator. EYES: PERRL, EOMI. Anicteric. HENT: Moist mucous membranes. LUNGS: Decreased breath sounds. CARDIOVASCULAR: Irregular rate and rhythm. ABDOMEN: Soft, nontender and nondistended. EXTREMITIES: No edema. SKIN: Warm, dry. Labs/Diagnostic Data Labs Test 04/19/25 18:41 04/19/25 14:55 04/19/25 12:32 04/19/25 11:50 Range/Units White Blood Count 20.5 #H 4.4-10.8 10^3/uL Red Blood Count 5.09 4.0-5.20 10^6/uL Hemoglobin 15.5 12.2-16.2 g/dL Hematocrit 46.2 H 36.0-46.0 % Mean Corpuscular Volume 90.8 80.0-100.0 fL Mean Corpuscular Hemoglobin 30.5 28.0-32.0 pg Mean Corpuscular Hemoglobin Concent 33.6 32.0-36.0 g/dL Red Cell Distribution Width 13.1 11.8-14.3 % Platelet Count 100 L 140-450 10^3/uL Mean Platelet Volume 8.4 6.9-10.8 fL Neutrophils (%) (Auto) 87.9 H 37.0-80.0 % Lymphocytes (%) (Auto) 6.9 L 10.0-50.0 % Monocytes (%) (Auto) 5.0 0.0-12.0 % Eosinophils (%) (Auto) 0.1 0.0-7.0 % Basophils (%) (Auto) 0.1 0.0-2.0 % Neutrophils # (Auto) 18.0 H 1.6-8.6 10 ^3/uL Lymphocytes # (Auto) 1.4 0.4-5.4 10 ^3/uL Monocytes # (Auto) 1.0 0-1.3 10 ^3/uL Eosinophils # (Auto) 0 0-0.8 10 ^3/uL Basophils # (Auto) 0 0-0.2 10 ^3/uL Nucleated Red Blood Cells 0.2 % Prothrombin Time 12.7 H 9.3-11.8 sec Prothrombin Time INR 1.22 H 0.9-1.15 Activated Partial Thromboplast Time 25.1 24.5-34.5 SEC Lactic Acid Level 3.0 *H 0.4-2.0 mmol/L Troponin I High Sensitivity 2295 *H </=34 ng/L Blood Gas Specimen Type Arterial Blood Gas Sample Site Left radial Blood Gas Patient Temperature 37.0 Arterial Blood Date Drawn [id number] Arterial Blood pH 7.367 7.350-7.450 Arterial Blood Partial Pressure CO2 35.6 32.0-45.0 mmHg Arterial Blood Partial Pressure O2 366.7 *H 83.0-108.0 mmHg Arterial Blood HCO3 20.0 L 21.0-28.0 mmol/L Arterial Blood Oxygen Saturation 99.8 H 94.0-98.0 % Arterial Blood Base Excess -4.5 L -2.0-3.0 mmol/L Arterial Blood Oxyhemoglobin 98.4 H 94.0-98.0 % Arterial Blood Carboxyhemoglobin 0.7 0.5-1.5 % Arterial Blood Methemoglobin 0.7 0.0-1.5 % Benny Test Modified Blood Gas Total Hemoglobin 15.80 12.0-16.0 g/dL Blood Gas Set Respiration Rate 22.0 Blood Gas Modality Vent - ac Blood Gas Spontaneous Rate 22 FiO2 % 80.0 Blood Gas Tidal Volume 300.0 Blood Gas PEEP or CPAP 5.0 Blood Gas Critical Value Read Back Yes Blood Gas Notified Whom Dr. bear Blood Gas Notified Time [id number] Blood Gas Notified By Dr. bear Sodium Level 138 136-145 mmol/L Potassium Level 4.3 3.5-5.1 mmol/L Chloride Level 99 98-107 mmol/L Carbon Dioxide Level 24 20-31 mmol/L Anion Gap 15 5-15 Blood Urea Nitrogen 31 H 9-23 mg/dL Creatinine 1.14 H 0.550-1.02 mg/dL Glomerular Filtration Rate Calc 48 >90 mL/min BUN/Creatinine Ratio 27.2 H 10.0-20.0 Serum Glucose 441 *H 74-106 mg/dL Hemoglobin A1c 13.3 H <5.7 % A1C Calcium Level 8.7 8.7-10.4 mg/dL Magnesium Level 1.6 1.6-2.6 mg/dL Total Bilirubin 0.9 0.2-1.0 mg/dL Aspartate Amino Transferase (AST) 26 <34 U/L Alanine Aminotransferase (ALT) 14 7-40 U/L Alkaline Phosphatase 68 46-116 U/L B-Type Natriuretic Peptide 144.83 0-100 pg/mL Total Protein 6.5 5.7-8.2 g/dL Albumin 3.7 3.2-4.8 g/dL Test 04/19/25 11:15 Range/Units Urine Color Colorless Yellow Urine Clarity Clear Clear Urine pH 6.5 5.0-9.0 Urine Specific [place] 1.010 1.001-1.035 Urine Protein 1+ H Negative Urine Ketones Trace Negative Urine Blood 2+ H Negative /uL Urine Nitrite Negative Negative Urine Bilirubin Negative Negative Urine Urobilinogen Normal Negative mg/dL Urine Leukocyte Esterase Negative Negative /uL Urine RBC 1 0 - 4 /hpf Urine Microscopic WBC 9 H 0-5 /HPF Urine Squamous Epithelial Cells None seen <5 /hpf Urine Bacteria Few H None Seen /hpf Urine Glucose 4+ H Normal mg/dL Assessment Acute hypoxic respiratory failure. Similar right upper lobe consolidation probable PNA. Acute metabolic encephalopathy. Leukocytosis unclear etiology. Lactic acidosis probable sepsis. YANI. Diabetes type 2 uncontrolled. History of hypertension. History of hyperlipidemia. History of COPD. History of asthma. History of COVID-19. History of pneumonia. History of right upper lobe lung mass that was ruled out for lung cancer at [facility]. History of left lung scarring. History of cataracts. History of dementia. History of PTCA. History of BTL. History of oophorectomy. Plan/Recommendation I agree with your ongoing assessment and care of plan. Echocardiogram. Aspirin, Lipitor. Heparin drip per pharmacy. Morphine for pain management. IV antibiotics as ordered. Vasopressors for hemodynamic support. Additional plan as per the hospital course. Critical care time of 90 minutes provided to include time spent evaluation of patient at bedside, when appropriate patient/family education for diagnosis, treatment plan, review of pertinent medical information and discussion of care with specialty providers and PCP. Mechanical ventilator parameters, treatment and adjustments have personally been reviewed by me and treatment plan by computer teacher has also been reviewed. Plan discussed with: Patient ROXANNE MILLER MD Apr 19, 2025 22:20
[2025-04-20] VITALS (106 sets, daily range): BP systolic 84–166; BP diastolic 38–88; PULSE 98–140; RESP 21–34; TEMP 97.3–98.3; O2SAT 92–100
[2025-04-20 02:30] LABS: Basophils # (auto) 0.1 10 ^3/uL (0-0.2); Basophils % (auto) 0.3 % (0.0-2.0); Eosinophils # (auto) 0 10 ^3/uL (0-0.8); Eosinophils % (auto) 0.2 % (0.0-7.0); Hematocrit 43.2 % (36.0-46.0); Hemoglobin 14.7 g/dL (12.2-16.2); Lymphocytes # (auto) 1.4 10 ^3/uL (0.4-5.4); Lymphocytes % (auto) 6.6 % (10.0-50.0); Mean Corpuscular Hemoglobin 30.5 pg (28.0-32.0); Mean Corpuscular Hgb Conc. 34.1 g/dL (32.0-36.0); Mean Corpuscular Volume 89.6 fL (80.0-100.0); Neutrophils # (auto) 18.4 10 ^3/uL (1.6-8.6); Neutrophils % (auto) 87.9 % (37.0-80.0); Nucleated Red Blood Cells % 0.1 %; Platelet Count (auto) 100 10^3/uL (140-450); Red Blood Cells 4.83 10^6/uL (4.0-5.20); Red Cell Distribution Width 13.1 % (11.8-14.3); White Blood Cell 20.9 10^3/uL (4.4-10.8)
[2025-04-20 02:32] LABS: Alanine Aminotransferase 33 U/L (7-40); Albumin 3.3 g/dL (3.2-4.8); Alkaline Phosphatase 60 U/L (46-116); Anion Gap 13 (5-15); BUN/Creatinine Ratio 22.2 (10.0-20.0); Bilirubin, Total 0.6 mg/dL (0.2-1.0); Carbon Dioxide 26 mmol/L (20-31); Chloride 103 mmol/L (98-107); Potassium 3.6 mmol/L (3.5-5.1); Sodium 142 mmol/L (136-145)
[2025-04-20 02:36] LABS: Aspartate Aminotransferase 105 U/L (<34); Blood Urea Nitrogen 39 mg/dL (9-23); Calcium 8.3 mg/dL (8.7-10.4); Glucose 205 mg/dL (74-106)
[2025-04-20 02:53] LABS: INR 1.25 (0.9-1.15)
[2025-04-20 03:00] LABS: Partial Thromboplastin Time 77.5 SEC (24.5-34.5)
[2025-04-20] MEDS: HEPARIN DRIP/D5W 100UNITS/ML 250 ML IV SCH (03:22)
[2025-04-20 07:01] LABS: Base Excess -1.9 mmol/L (-2.0-3.0)
--- NOTE | 2025-04-20 09:34 | DVHPN2 ---
Subjective Chemically sedated Reviewed: Care Plan, H&P, Labs, Medications Changes from previous H/P or p: No Changes General: Per HPI Objective Vitals Vital Signs Date Time Temp Pulse Resp B/P (MAP) Pulse Ox O2 Delivery O2 Flow Rate FiO2 04/20/25 07:45 110 25 147/87 (107) 99 04/20/25 07:41 30 04/20/25 06:00 Mechanical Ventilator+ 04/20/25 05:40 97.6 97.6 04/19/25 10:46 15 Intake/Output Intake and Output 04/20/25 07:00 Intake Total 513.275 ml Output Total 525 ml Balance -11.725 ml Intake Oral 0 ml IV Total 513.275 ml Output Urine Total 525 ml General Appearance: moderate distress, Other (Intubated and sedated) HEENT: Other (Poor dentition) Lungs: Other (Rhonchi right upper lobe. Mechanical ventilation) Chest/Breasts: Other (Ecchymosis to chest) Cardiovascular: Normal S1, Normal S2, Other (Atrial fibrillation) Genitourinary: No Apparent Abnormalities (Gmóez catheter) Musculoskeletal: Normal sensory function, Normal motor function Skin: Dry, Intact Psych/Mental Status: Other (Unable to assess) Medications Current Medications Medications Dose Ordered Sig/Jorden Route Start Time Stop Time Status Last Admin Dose Admin Norepinephrine Bitartrate 250 ml @ 3.75 mls/hr Q24H IV 04/19/25 11:15 Propofol 100 ml @ 1.773 mls/ hr Q24H IV 04/19/25 11:15 04/20/25 05:02 14.184 MLS/HR Ondansetron HCl 4 mg Q4HP PRN IV 04/19/25 11:30 Acetaminophen 650 mg Q6HP PRN PO 04/19/25 11:30 Nitroglycerin 0.4 mg Q5MINP PRN SL 04/19/25 11:30 Morphine Sulfate 2 mg Q30M PRN IV 04/19/25 11:30 Aspirin 81 mg DAILY PO 04/20/25 10:00 Carvedilol 6.25 mg Q12HR PO 04/19/25 22:00 Hold Ergocalciferol 50,000 unit Q7D PO 04/19/25 11:45 Atorvastatin Calcium 40 mg HS PO 04/19/25 22:00 04/19/25 21:43 40 MG Vancomycin HCl 0 ml @ 0 mls/hr UD IV 04/19/25 11:45 Diagnostic Test (Pha) 1 strip Q6HR 04/19/25 12:00 04/20/25 06:14 1 STRIP Insulin Human Regular Q6HR SC 04/19/25 12:00 04/20/25 06:19 4 UNITS Dextrose 50 ml UD PRN IV 04/19/25 12:00 Midazolam HCl 50 ml @ 1 mls/hr Q24H IV 04/19/25 12:15 04/19/25 10:46 5 MLS/HR Phenylephrine HCl 250 ml @ 30 mls/hr Q8H20M IV 04/19/25 12:30 Aspirin 81 mg DAILY PO 04/20/25 10:00 Heparin Sodium/ Dextrose 250 ml @ 7.08 mls/hr Q24H IV 04/19/25 18:15 UNV Heparin Sodium/ Dextrose 250 ml @ 5 mls/hr Q24H IV 04/20/25 03:30 04/20/25 03:22 5 MLS/HR Ampicillin Sodium/ Sulbactam Sodium 3 gm/Sodium Chloride 100 ml @ 100 mls/hr Q12H IV 04/20/25 09:15 UNV Laboratory Results Laboratory Tests 04/20/25 01:55 Chemistry Test 04/19/25 11:50 04/20/25 01:55 Albumin 3.7 g/dL (3.2-4.8) 3.3 g/dL (3.2-4.8) Calcium Level 8.7 mg/dL (8.7-10.4) 8.3 mg/dL (8.7-10.4) L Magnesium Level 1.6 mg/dL (1.6-2.6) Total Protein 6.5 g/dL (5.7-8.2) 6.0 g/dL (5.7-8.2) Coagulation Test 04/19/25 18:41 04/20/25 01:55 Prothrombin Time 12.7 sec (9.3-11.8) H 13.0 sec (9.3-11.8) H Prothrombin Time INR 1.22 (0.9-1.15) H 1.25 (0.9-1.15) H Activated Partial Thromboplast Time 25.1 SEC (24.5-34.5) 77.5 SEC (24.5-34.5) *H Cardiac Markers Test 04/19/25 11:50 B-Type Natriuretic Peptide 144.83 pg/mL (0-100) LFT Test 04/19/25 11:50 04/20/25 01:55 Alanine Aminotransferase (ALT) 14 U/L (7-40) 33 U/L (7-40) Alkaline Phosphatase 68 U/L (46-116) 60 U/L (46-116) Aspartate Amino Transferase (AST) 26 U/L (<34) 105 U/L (<34) H Total Bilirubin 0.9 mg/dL (0.2-1.0) 0.6 mg/dL (0.2-1.0) HgA1c, TSH Test 04/19/25 11:50 Hemoglobin A1c 13.3 % A1C (<5.7) H Urinalysis Test 04/19/25 11:15 Urine Color Colorless (Yellow) Urine Clarity Clear (Clear) Urine pH 6.5 (5.0-9.0) Urine Specific Warden 1.010 (1.001-1.035) Urine Protein 1+ (Negative) H Urine Ketones Trace (Negative) Urine Blood 2+ /uL (Negative) H Urine Nitrite Negative (Negative) Urine Bilirubin Negative (Negative) Urine Urobilinogen Normal mg/dL (Negative) Urine Leukocyte Esterase Negative /uL (Negative) Urine RBC 1 /hpf (0 - 4) Urine Microscopic WBC 9 /HPF (0-5) H Urine Squamous Epithelial Cells None seen /hpf (<5) Urine Bacteria Few /hpf (None Seen) H Urine Glucose 4+ mg/dL (Normal) H Blood Gas Results Test 04/19/25 12:32 04/20/25 06:22 Arterial Blood pH 7.367 (7.350-7.450) 7.422 (7.350-7.450) FiO2 % 80.0 30.0 Microbiology Microbiology Date/Time Source Procedure Growth Status 04/19/25 11:15 Voided Urine Urine Culture - Preliminary Resulted Labs and/or images reviewed: Labs reviewed by me, Image(s) reviewed by me Assessment/Plan Assessment/Plan Impression: -syncope with collapse -metabolic encephalopathy -acute hypoxic respiratory failure -NSTEMI,? Type 1 -probable acute systolic heart failure with ejection fraction 40% -acute kidney injury, vasomotor nephropathy -diabetes mellitus -hypertensive crisis -? Right upper lobe mass -atrial fibrillation with rapid ventricular rate Plan: -continue current ventilator settings -check D-dimer, g of the chest if found to be positive. -start gentle IV hydration -regular insulin sliding scale -adjust antibiotic therapy: Unasyn, vancomycin -bronchodilators -echocardiogram reviewed: Anterior wall and apical akinesis,? Acute [place] versus takotsubo syndrome -continue current anticoagulation with heparin. Noted that patient was on Eliquis at home -antihypertensives as needed -continue aspirin -repeat labs, chest x-ray, ABG in a.m. Critical care time spent with patient discussing and formulating plan of care: 40 minutes. This does not include time spent performing procedures. This medical document was created using an electronic medical record system with [employer] dictation system. Although this document has been carefully reviewed, there may still be some phonetic and typographical errors. These areas are purely typographical due to imperfections of the software programs, and do not reflect any compromise in the patient's medical care. Plan discussed with: Patient, Other (RN) My Orders Orders - MILLICENT BLACKWOOD NP Procedure Category Date Status Time Ampicillin & PHA 04/20/25 Logged Sulbactam Sodium 09:15 Date of Service: Apr 20, 2025 Billing Provider: MILLICENT BLACKWOOD NP Common Visit Codes: [id number] CARE 30-74 MIN MILLICENT BLACKWOOD NP Apr 20, 2025 09:34
[2025-04-20] MEDS: ASPirin-EC 81 mg tab PO SCH (10:00)
[2025-04-20] MEDS: ASPirin 81 mg TAB PO SCH (10:12)
[2025-04-20] MEDS: SOD CHL 0.45% 1,000 ML IV SCH (10:15)
[2025-04-20 10:35] LABS: INR 1.14 (0.9-1.15); Partial Thromboplastin Time 69.9 SEC (24.5-34.5); Prothrombin Time 11.9 sec (9.3-11.8)
[2025-04-20] MEDS: AMPICILLIN & SULBACTAM SODIUM 3 GM in SODIUM CHL 0.9% 100 ML IV SCH (11:52)
--- NOTE | 2025-04-20 12:58 | DVH ---
EXAM: XY CHEST PORTABLE CLINICAL HISTORY: INTUBATED TECHNIQUE: Single AP view of the chest WID: COMPARISON: XY CHEST PORTABLE on DOS: 04/19/25 FINDINGS: Lines and tubes: Endotracheal tube in place with the tip projecting 4.7 cm above the edwin. The gas tric tube in place with the tip projecting over the fundus of the stomach. Chest: Mild cardiomegaly. No pulmonary vascular congestion. Unchanged consolidation with bronchiectasis in the right upper lobe/ right lung apex. Scattered tiny nodular opacities are seen in both lungs, greater on the right although without significant change. N o pneumothorax . There is blunting of the bilateral costophrenic angles. The osseous structures are grossly intact. IMPRESSION: 1. Endotracheal tube and gastric tubes in place as described. 2. Unchanged consolidation and bronchiectasis in the right upper lobe. 3. Scattered tiny nodular opacities in both lungs, greater on the right without significant change da ting back to 2022 which could be sequelae of chronic atypical infection.
--- NOTE | 2025-04-20 14:04 | DVHPN2 ---
Progress Note - Dictate Date Seen: Apr 20, 2025 Medical Necessity Reason Pt with a Central, PICC or Fol: Yes The following are medically ne: Central Line vital signs Vital Sign Date Time Temp Pulse Resp B/P (MAP) Pulse Ox O2 Delivery O2 Flow Rate FiO2 04/20/25 13:27 117 24 125/77 (93) 100 30 04/20/25 12:00 98.2 98.2 04/20/25 09:45 Mechanical Ventilator+ 04/19/25 10:46 15 Total Intake and Output 04/19/25 04/19/25 04/20/25 15:00 23:00 07:00 Intake Total 46.552 ml 195.110 ml 271.613 ml Output Total 350 ml 175 ml Balance 46.552 ml -154.890 ml 96.613 ml medications Current Medications Medications Dose Ordered Sig/Jorden Route Start Time Stop Time Status Last Admin Dose Admin Norepinephrine Bitartrate 250 ml @ 3.75 mls/hr Q24H IV 04/19/25 11:15 Propofol 100 ml @ 1.773 mls/ hr Q24H IV 04/19/25 11:15 04/20/25 13:20 15.957 MLS/HR Ondansetron HCl 4 mg Q4HP PRN IV 04/19/25 11:30 Acetaminophen 650 mg Q6HP PRN PO 04/19/25 11:30 Nitroglycerin 0.4 mg Q5MINP PRN SL 04/19/25 11:30 Morphine Sulfate 2 mg Q30M PRN IV 04/19/25 11:30 Carvedilol 6.25 mg Q12HR PO 04/19/25 22:00 Hold Ergocalciferol 50,000 unit Q7D PO 04/19/25 11:45 Atorvastatin Calcium 40 mg HS PO 04/19/25 22:00 04/19/25 21:43 40 MG Vancomycin HCl 0 ml @ 0 mls/hr UD IV 04/19/25 11:45 Diagnostic Test (Pha) 1 strip Q6HR 04/19/25 12:00 04/20/25 11:54 1 STRIP Insulin Human Regular Q6HR SC 04/19/25 12:00 04/20/25 11:58 4 UNITS Dextrose 50 ml UD PRN IV 04/19/25 12:00 Midazolam HCl 50 ml @ 1 mls/hr Q24H IV 04/19/25 12:15 04/19/25 10:46 5 MLS/HR Phenylephrine HCl 250 ml @ 30 mls/hr Q8H20M IV 04/19/25 12:30 Aspirin 81 mg DAILY PO 04/20/25 10:00 04/20/25 10:12 81 MG Heparin Sodium/ Dextrose 250 ml @ 7.08 mls/hr Q24H IV 04/19/25 18:15 UNV Heparin Sodium/ Dextrose 250 ml @ 5 mls/hr Q24H IV 04/20/25 03:30 04/20/25 03:22 5 MLS/HR Ampicillin Sodium/ Sulbactam Sodium 3 gm/Sodium Chloride 100 ml @ 100 mls/hr Q12H IV 04/20/25 09:15 04/20/25 11:52 100 MLS/HR Sodium Chloride 1,000 ml @ 75 mls/hr [id number] IV 04/20/25 09:30 04/20/25 10:15 75 MLS/HR laboratory and microbiology Laboratory Tests 04/20/25 01:55 Test 04/20/25 01:55 Range/Units Serum Glucose 205 H 74-106 mg/dL Assessment/Plan Impression Acute hypoxemic respiratory failure Altered mental status Elevated troponin NSTEMI Patient seen and examined in ICU Events On mechanical ventilation S/p intubation PEEP 5, FiO2 30% Labs and imaging reviewed CT brain negative for acute abnormalities Chest x-ray shows localized bronchiectasis, right upper lobe Troponin elevated trending up, 17,000 today ABG reviewed pH 7.36, pCO2 35, pO2 366 Management Vent support Titrate to maintain sats 90% or above Sedation for vent synchrony Continue antibiotics F/u cultures Bronchodilators Monitor renal function Monitor electrolytes Supplement as needed Pressors as needed for hemodynamic support To maintain a mean arterial pressure of 65 mmHg F/u cardiology DVT prophylaxis Critical care time 35 minutes Dietary Evaluation Review Comments: 1) Initiate Pro-Stat @ 30 mL qd 2) Initiate MVI @ 1 tb qd 3) If patient remains NPO > 7 days, consider EN/TPN to meet at least 75% of estimated daily needs 4) If GI route is preferred, consider Glucerna @ 35 mL/hr goal rate as tolerated. TF regimen (including Propofol and Pro-Stat) will provide 1482 kcals, 65g Pro, 676 mL free H2O per 24 hrs. Goal rate meets 100% estimated energy needs and ~70% estimated protein needs 5) Advance to 60g CCHO cardiac diet when medically feasible, pending ST approval 6) Follow-up with cardiology and neurology 7) Continue to monitor I&O, labs, and skin integrity Expected Outcomes/Goals: 1) patient to receive nutrition support within 7 days of NPO status 2) labs and wound to improve 3) diet to advance 4) f/u in 2-3 days Plan discussed with: Other (Rn) ILDA PARIKH MD Apr 20, 2025 14:04
[2025-04-20 16:03] LABS: INR 1.12 (0.9-1.15); Prothrombin Time 11.7 sec (9.3-11.8)
[2025-04-20 21:55] LABS: INR 1.14 (0.9-1.15); Partial Thromboplastin Time 55.6 SEC (24.5-34.5); Prothrombin Time 11.9 sec (9.3-11.8)
--- NOTE | 2025-04-20 23:49 | DVHPN2 ---
Progress Note - Dictate Date Seen: Apr 20, 2025 Medical Necessity Reason Pt with a Central, PICC or Fol: Yes The following are medically ne: Central Line Subjective Patient was seen and evaluated in follow up in the ICU. Patient is intubated and sedated on ventilator. 30% FiO2. at bedside. Patient on Heparin drip. WBC 20.9, D-DIMER 24.68, WBC 20.9, BUN 39, FLOWER CHENILLER 1.76, GLUC 242, TROP 13213. Chest x-ray shows unchanged consolidation and bronchiectasis in the right upper lobe. Scattered tiny nodular opacities in both lungs, greater on the right without significant change dating back to 2022 which could be sequelae of chronic atypical infection. vital signs Vital Sign Date Time Temp Pulse Resp B/P (MAP) Pulse Ox O2 Delivery O2 Flow Rate FiO2 04/20/25 13:27 117 24 125/77 (93) 100 30 04/20/25 12:00 98.2 98.2 04/20/25 09:45 Mechanical Ventilator+ 04/19/25 10:46 15 Total Intake and Output 04/19/25 04/19/25 04/20/25 15:00 23:00 07:00 Intake Total 46.552 ml 195.110 ml 271.613 ml Output Total 350 ml 175 ml Balance 46.552 ml -154.890 ml 96.613 ml medications Current Medications Medications Dose Ordered Sig/Jorden Route Start Time Stop Time Status Last Admin Dose Admin Norepinephrine Bitartrate 250 ml @ 3.75 mls/hr Q24H IV 04/19/25 11:15 Propofol 100 ml @ 1.773 mls/ hr Q24H IV 04/19/25 11:15 04/20/25 13:20 15.957 MLS/HR Ondansetron HCl 4 mg Q4HP PRN IV 04/19/25 11:30 Acetaminophen 650 mg Q6HP PRN PO 04/19/25 11:30 Nitroglycerin 0.4 mg Q5MINP PRN SL 04/19/25 11:30 Morphine Sulfate 2 mg Q30M PRN IV 04/19/25 11:30 Carvedilol 6.25 mg Q12HR PO 04/19/25 22:00 Hold Ergocalciferol 50,000 unit Q7D PO 04/19/25 11:45 Atorvastatin Calcium 40 mg HS PO 04/19/25 22:00 04/19/25 21:43 40 MG Vancomycin HCl 0 ml @ 0 mls/hr UD IV 04/19/25 11:45 Diagnostic Test (Pha) 1 strip Q6HR 04/19/25 12:00 04/20/25 11:54 1 STRIP Insulin Human Regular Q6HR SC 04/19/25 12:00 04/20/25 11:58 4 UNITS Dextrose 50 ml UD PRN IV 04/19/25 12:00 Midazolam HCl 50 ml @ 1 mls/hr Q24H IV 04/19/25 12:15 04/19/25 10:46 5 MLS/HR Phenylephrine HCl 250 ml @ 30 mls/hr Q8H20M IV 04/19/25 12:30 Aspirin 81 mg DAILY PO 04/20/25 10:00 04/20/25 10:12 81 MG Heparin Sodium/ Dextrose 250 ml @ 7.08 mls/hr Q24H IV 04/19/25 18:15 UNV Heparin Sodium/ Dextrose 250 ml @ 5 mls/hr Q24H IV 04/20/25 03:30 04/20/25 03:22 5 MLS/HR Ampicillin Sodium/ Sulbactam Sodium 3 gm/Sodium Chloride 100 ml @ 100 mls/hr Q12H IV 04/20/25 09:15 04/20/25 11:52 100 MLS/HR Sodium Chloride 1,000 ml @ 75 mls/hr [id number] IV 04/20/25 09:30 04/20/25 10:15 75 MLS/HR objective GENERAL: Ill appearing, intubated on ventilator. EYES: PERRL, EOMI. Anicteric. HENT: Moist mucous membranes. LUNGS: Decreased breath sounds. CARDIOVASCULAR: Irregular rate and rhythm. ABDOMEN: Soft, nontender and nondistended. EXTREMITIES: No edema. SKIN: Warm, dry. laboratory and microbiology Laboratory Tests 04/20/25 01:55 Test 04/20/25 01:55 Range/Units Serum Glucose 205 H 74-106 mg/dL Problem List Acute hypoxic respiratory failure. Similar right upper lobe consolidation probable PNA. Acute metabolic encephalopathy. Leukocytosis unclear etiology. Lactic acidosis probable sepsis. YANI. Diabetes type 2 uncontrolled. History of hypertension. History of hyperlipidemia. History of COPD. History of asthma. History of COVID-19. History of pneumonia. History of right upper lobe lung mass that was ruled out for lung cancer at [facility]. History of left lung scarring. History of cataracts. History of dementia. History of PTCA. History of BTL. History of oophorectomy. Assessment/Plan Continued all current supportive medical care. Echocardiogram. IV antibiotics as ordered. Aspirin, Lipitor. Heparin drip per pharmacy. Morphine for pain management. Vasopressors for hemodynamic support. Additional plan as per the hospital course. Critical care time of 45 minutes provided to include time spent evaluation of patient at bedside, when appropriate patient/family education for diagnosis, treatment plan, review of pertinent medical information and discussion of care with specialty providers and PCP. Mechanical ventilator parameters, treatment and adjustments have personally been reviewed by me and treatment plan by sleeve machine tender has also been reviewed. Dietary Evaluation Review Comments: 1) Initiate Pro-Stat @ 30 mL qd 2) Initiate MVI @ 1 tb qd 3) If patient remains NPO > 7 days, consider EN/TPN to meet at least 75% of estimated daily needs 4) If GI route is preferred, consider Glucerna @ 35 mL/hr goal rate as tolerated. TF regimen (including Propofol and Pro-Stat) will provide 1482 kcals, 65g Pro, 676 mL free H2O per 24 hrs. Goal rate meets 100% estimated energy needs and ~70% estimated protein needs 5) Advance to 60g CCHO cardiac diet when medically feasible, pending ST approval 6) Follow-up with cardiology and neurology 7) Continue to monitor I&O, labs, and skin integrity Expected Outcomes/Goals: 1) patient to receive nutrition support within 7 days of NPO status 2) labs and wound to improve 3) diet to advance 4) f/u in 2-3 days Plan discussed with: ROXANNE Avilez MD Apr 20, 2025 14:43
[2025-04-21] VITALS (111 sets, daily range): BP systolic 64–142; BP diastolic 28–109; PULSE 53–135; RESP 18–39; TEMP 96.6–98.2; O2SAT 89–100
[2025-04-21] MEDS: AMIODARONE 360mg/200mL PREMIX 200 ML IV SCH (01:00)
[2025-04-21 03:31] LABS: Basophils # (auto) 0.1 10 ^3/uL (0-0.2); Basophils % (auto) 0.5 % (0.0-2.0); Eosinophils # (auto) 0 10 ^3/uL (0-0.8); Eosinophils % (auto) 0.2 % (0.0-7.0); Hematocrit 41.1 % (36.0-46.0); Hemoglobin 14.1 g/dL (12.2-16.2); Lymphocytes # (auto) 1.3 10 ^3/uL (0.4-5.4); Lymphocytes % (auto) 5.3 % (10.0-50.0); Mean Corpuscular Hemoglobin 30.7 pg (28.0-32.0); Mean Corpuscular Hgb Conc. 34.2 g/dL (32.0-36.0); Mean Corpuscular Volume 89.6 fL (80.0-100.0); Monocytes # (auto) 1.3 10 ^3/uL (0-1.3); Monocytes % (auto) 5.2 % (0.0-12.0); Neutrophils # (auto) 21.5 10 ^3/uL (1.6-8.6); Neutrophils % (auto) 88.8 % (37.0-80.0); Nucleated Red Blood Cells % 0.2 %; Platelet Count (auto) 84 10^3/uL (140-450); Red Blood Cells 4.59 10^6/uL (4.0-5.20); Red Cell Distribution Width 13.4 % (11.8-14.3); White Blood Cell 24.3 10^3/uL (4.4-10.8)
[2025-04-21 03:45] LABS: Alkaline Phosphatase 67 U/L (46-116); Anion Gap 16 (5-15); BUN/Creatinine Ratio 18.9 (10.0-20.0); Carbon Dioxide 22 mmol/L (20-31); Chloride 102 mmol/L (98-107); Sodium 140 mmol/L (136-145)
[2025-04-21 03:46] LABS: Bilirubin, Total 0.5 mg/dL (0.2-1.0)
[2025-04-21 03:57] LABS: Alanine Aminotransferase 216 U/L (7-40); Albumin 2.9 g/dL (3.2-4.8); Aspartate Aminotransferase 443 U/L (<34); Blood Urea Nitrogen 50 mg/dL (9-23); Glucose 174 mg/dL (74-106); Total Protein 5.4 g/dL (5.7-8.2)
[2025-04-21 04:02] LABS: Calcium 7.9 mg/dL (8.7-10.4)
--- NOTE | 2025-04-21 05:00 | DVH ---
CHEST RADIOGRAPH Indication: pna Technique: Single frontal view of the chest was obtained COMPARISON: XY CHEST PORTABLE on DOS: 04/20/25, XY CHEST PORTABLE on DOS: 04/19/25, XY CHEST PORTABLE o n DOS: 04/19/25, XY CHEST XRAY 1 VIEW on DOS: 10/22/23, CHEST PORTABLE on DOS: 09/05/21 FINDINGS: Lines and Tubes: Endotracheal tube and enteric catheter in satisfactory position. Lungs: Right upper lobe consolidation Pleura: No effusion. No pneumothorax. Cardiomediastinal contours: Unremarkable Bones: Unremarkable IMPRESSION: Lines and tubes in satisfactory position. No significant interval change.
[2025-04-21 06:14] LABS: Base Excess -5.8 mmol/L (-2.0-3.0)
--- NOTE | 2025-04-21 07:56 | ECG ---
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
[2025-04-21] MEDS ORDERED: levoFLOXacin 500MG 100 ML IV SCH (08:30)
--- NOTE | 2025-04-21 09:29 | DVHINCON2 ---
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, COPD Past Surgical History Past Surgical History: PTCA, oophorectomy, BTL Allergies: Coded Allergies: Cephalosporins (Verified Allergy, Unknown, ITCHING ALL OVER, 04/19/25) Empagliflozin (Verified Allergy, Unknown, 04/20/25) ALLERGY PER REPORT Penicillins (Verified Allergy, Unknown, 04/20/25) ALLERGY PER REPORT Home Meds Active Scripts Prednisone (Prednisone) 20 Mg Tab, 20 MG PO BID for 5 Days, #10 MG Prov:CINDY NAYAK MD 07/31/24 Diphenhydramine Hcl (Benadryl Allergy) 25 Mg Cap, 1 CAP PO TID for 5 Days, #15 CAP 1 Refill Prov:CINDY NAYAK MD 07/31/24 Prednisone (Prednisone) 20 Mg Tab, 40 MG PO DAILY for 6 Days, #5 MG Prov:ANDREW AGUIRRE [facility] 10/24/23 Budesonide (Inhalation) (Budesonide) 0.25 Mg/2 Ml Izzy, 0.25 MG IN BID for 30 Days, ML Prov:ANDREW AGUIRRE [facility] 10/24/23 Furosemide (Lasix) 20 Mg Tb, 1 TAB PO DAILY for 10 Days, #10 TAB 1 Refill Prov:ANDREW AGUIRRE [facility] 10/24/23 Azithromycin (Azithromycin) 500 Mg Tab, 500 MG PO DAILY for 3 Days, #3 TAB Prov:ANDREW AGUIRRE [facility] 10/24/23 Ipratropium [place] (Ipratropium [place]) 0.02 % Micaela, 0.5 MG NEB Q4HR for 30 Days, #1 ML Prov:ANDREW AGUIRRE [facility] 10/24/23 Ergocalciferol (VITAMIN D 73743 UNIT) 50,000 [place], [address] UNIT PO Q7D for 30 Days, #5 CAP Prov:ANDREW AGUIRRE [facility] 10/24/23 Carvedilol (COREG) 3.125 Mg Tab, 6.25 MG PO Q12HR for 30 Days, #120 TAB Prov:ANDREW AGUIRRE 10/24/23 Aspirin (Aspirin Low Dose) 81 Mg Tab, 81 MG PO DAILY for 30 Days, #30 TAB Prov:ANDREW AGUIRRE [facility] 10/24/23 Albuterol Sulfate (Ventolin) 2.5 Mg/0.5 Ml Nb, 2.5 MG NEB Q4HR for 30 Days, #1 INH Prov:ANDREW AGUIRRE [facility] 10/24/23 Reported Medications Atorvastatin Calcium (ATORVASTATIN CALCIUM) 40 Mg Tab, 1 TAB PO DAILY, #30 TAB 5 Refills 10/23/23 Promethazine Hcl (Promethazine Hcl) 25 Mg Tab, 6.25 MG PO Q6HPRN PRN for FOR COUGH 10/23/23 Fluoxetine Hcl (Fluoxetine Hcl) 10 Mg Cap, 10 MG PO DAILY, MG 10/23/23 Empagliflozin (Jardiance) 10 Mg Tab, 10 MG PO DAILY, TAB 10/23/23 Losartan Potassium (Losartan Potassium) 25 Mg Tab, 1 TAB PO DAILY, #90 TAB 1 Ref ill 03/21/18 Clonidine Hydrochloride (Clonidine Hcl) 0.1 Mg Tab, 0.1 MG PO, TAB 03/21/18 Donepezil Hydrochloride (DONEPEZIL HCL) 5 Mg Tab, 1 TAB PO DAILY, #30 TAB 5 Refills 03/21/18 Current Medications Current Medications Medications (Trade) Dose Ordered Sig/Jorden Route PRN Reason Start Time Stop Time Status Last Admin Clindamycin Phosphate 50 ml @ 50 mls/hr Q8HR IV 04/21/25 14:00 Levofloxacin/ Dextrose 100 ml @ 100 mls/hr Q48H IV 04/21/25 08:30 Cancel Ampicillin Sodium/ Sulbactam Sodium 3 gm/Sodium Chloride 100 ml @ 100 mls/hr Q12H IV 04/21/25 09:30 04/21/25 09:54 Magnesium Sulfate/ Dextrose 100 ml @ 100 mls/hr Q1HR IV 04/21/25 10:00 04/21/25 11:59 UNV Sodium Bicarbonate 50 ml/ Sodium Chloride 1,050 ml @ 75 mls/hr Q14H IV 04/21/25 11:00 UNV Family History: Asthma G8 MOTHER, Onset:Unknown G8 SISTER Diabetes mellitus G8 MOTHER FH: myocardial infarction G8 MOTHER, Onset:Unknown Hypertension G8 MOTHER G8 SISTER Thyroid disease G8 SISTER G8 SISTER Review of Systems Can not be obtained patient is intubated H&P Exam Vital Signs/I&O Vital Sign Date Time Temp Pulse Resp B/P (MAP) Pulse Ox O2 Delivery O2 Flow Rate FiO2 04/21/25 10:31 99 25 99/64 (76) 91 04/21/25 10:00 30 04/21/25 10:00 Mechanical Ventilator+ 04/21/25 08:01 97.0 97.0 04/19/25 10:46 15 Intake and Output 04/20/25 04/21/25 19:00 07:00 Intake Total 964.967 ml 1333.097 ml Output Total 170 ml 100 ml Balance 794.967 ml 1233.097 ml Intake Oral 0 ml 60 ml IV Total 964.967 ml 1273.097 ml Output Urine Total 170 ml 100 ml Stool Total 0 ml Physical Exam Patient intubated on mechanical ventilator Lungs clear to auscultation bilaterally Cardiac exam regular rate and rhythm GI soft nontender Gómez catheter Extremities no clubbing cyanosis or edema Neuro patient is a sedated Labs/Diagnostic Data Labs/Diagnostic Data Laboratory Tests Test 04/21/25 09:17 04/21/25 06:10 04/21/25 06:03 04/21/25 03:07 Range/Units Phosphorus Level 9.8 H 2.4-5.1 mg/dL Magnesium Level 1.8 1.6-2.6 mg/dL Troponin I High Sensitivity 25959 *H 28551 *H </=34 ng/L Parathyroid Hormone (Intact) 771.6 H 18.4-80.1 pg/mL Hepatitis B Surface Antigen Negative Negative Hepatitis C Antibody Negative Negative Blood Gas Specimen Type Arterial Blood Gas Sample Site Left radial Blood Gas Patient Temperature 37.0 Arterial Blood Date Drawn [id number] Arterial Blood pH 7.359 7.350-7.450 Arterial Blood Partial Pressure CO2 34.0 32.0-45.0 mmHg Arterial Blood Partial Pressure O2 85.2 83.0-108.0 mmHg Arterial Blood HCO3 18.7 L 21.0-28.0 mmol/L Arterial Blood Oxygen Saturation 95.1 94.0-98.0 % Arterial Blood Base Excess -5.8 L -2.0-3.0 mmol/L Arterial Blood Oxyhemoglobin 94.0 94.0-98.0 % Arterial Blood Carboxyhemoglobin 0.9 0.5-1.5 % Arterial Blood Methemoglobin 0.3 0.0-1.5 % Benny Test Modified Blood Gas Total Hemoglobin 14.60 12.0-16.0 g/dL Blood Gas Set Respiration Rate 22.0 Blood Gas Modality Vent - ac FiO2 % 30.0 Blood Gas Tidal Volume 300.0 Blood Gas PEEP or CPAP 5.0 POC Glucose 203 H 70-106 mg/dl White Blood Count 24.3 H 4.4-10.8 10^3/uL Red Blood Count 4.59 4.0-5.20 10^6/uL Hemoglobin 14.1 12.2-16.2 g/dL Hematocrit 41.1 36.0-46.0 % Mean Corpuscular Volume 89.6 80.0-100.0 fL Mean Corpuscular Hemoglobin 30.7 28.0-32.0 pg Mean Corpuscular Hemoglobin Concent 34.2 32.0-36.0 g/dL Red Cell Distribution Width 13.4 11.8-14.3 % Platelet Count 84 L 140-450 10^3/uL Mean Platelet Volume 10.1 6.9-10.8 fL Neutrophils (%) (Auto) 88.8 H 37.0-80.0 % Lymphocytes (%) (Auto) 5.3 L 10.0-50.0 % Monocytes (%) (Auto) 5.2 0.0-12.0 % Eosinophils (%) (Auto) 0.2 0.0-7.0 % Basophils (%) (Auto) 0.5 0.0-2.0 % Neutrophils # (Auto) 21.5 H 1.6-8.6 10 ^3/uL Lymphocytes # (Auto) 1.3 0.4-5.4 10 ^3/uL Monocytes # (Auto) 1.3 0-1.3 10 ^3/uL Eosinophils # (Auto) 0 0-0.8 10 ^3/uL Basophils # (Auto) 0.1 0-0.2 10 ^3/uL Nucleated Red Blood Cells 0.2 % Sodium Level 140 136-145 mmol/L Potassium Level 4.0 3.5-5.1 mmol/L Chloride Level 102 98-107 mmol/L Carbon Dioxide Level 22 20-31 mmol/L Anion Gap 16 H 5-15 Blood Urea Nitrogen 50 #H 9-23 mg/dL Creatinine 2.65 #H 0.550-1.02 mg/dL Glomerular Filtration Rate Calc 18 >90 mL/min BUN/Creatinine Ratio 18.9 10.0-20.0 Serum Glucose 174 H 74-106 mg/dL Calcium Level 7.9 L 8.7-10.4 mg/dL Total Bilirubin 0.5 0.2-1.0 mg/dL Aspartate Amino Transferase (AST) 443 H <34 U/L Alanine Aminotransferase (ALT) 216 H 7-40 U/L Alkaline Phosphatase 67 46-116 U/L Total Protein 5.4 L 5.7-8.2 g/dL Albumin 2.9 L 3.2-4.8 g/dL Random Vancomycin Level 17.0 H 5-10 ug/mL Test 04/21/25 00:07 04/20/25 21:23 04/20/25 17:57 04/20/25 15:32 Range/Units POC Glucose 174 H 201 H 70-106 mg/dl Prothrombin Time 11.9 H 11.7 9.3-11.8 sec Prothrombin Time INR 1.14 1.12 0.9-1.15 Activated Partial Thromboplast Time 55.6 H 56.0 H 24.5-34.5 SEC Test 04/20/25 11:55 04/20/25 09:38 04/20/25 06:22 04/20/25 06:17 Range/Units POC Glucose 242 H 221 H 70-106 mg/dl Prothrombin Time 11.9 H 9.3-11.8 sec Prothrombin Time INR 1.14 0.9-1.15 Activated Partial Thromboplast Time 69.9 H 24.5-34.5 SEC D-Dimer, Quantitative 24.88 H 0.0-0.49 mg/L FEU Blood Gas Specimen Type Arterial Blood Gas Sample Site Right radial Blood Gas Patient Temperature 37.0 Arterial Blood Date Drawn [id number] Arterial Blood pH 7.422 7.350-7.450 Arterial Blood Partial Pressure CO2 34.1 32.0-45.0 mmHg Arterial Blood Partial Pressure O2 82.0 L 83.0-108.0 mmHg Arterial Blood HCO3 21.7 21.0-28.0 mmol/L Arterial Blood Oxygen Saturation 95.0 94.0-98.0 % Arterial Blood Base Excess -1.9 -2.0-3.0 mmol/L Arterial Blood Oxyhemoglobin 94.6 94.0-98.0 % Arterial Blood Carboxyhemoglobin 0.3 L 0.5-1.5 % Arterial Blood Methemoglobin 0.1 0.0-1.5 % Benny Test Modified Blood Gas Total Hemoglobin 15.70 12.0-16.0 g/dL Blood Gas Set Respiration Rate 22.0 Blood Gas Modality Vent - ac FiO2 % 30.0 Blood Gas Tidal Volume 300.0 Blood Gas PEEP or CPAP 5.0 Test 04/20/25 01:55 04/19/25 23:45 04/19/25 18:41 04/19/25 14:55 Range/Units White Blood Count 20.9 H 20.5 #H 4.4-10.8 10^3/uL Red Blood Count 4.83 5.09 4.0-5.20 10^6/uL Hemoglobin 14.7 15.5 12.2-16.2 g/dL Hematocrit 43.2 46.2 H 36.0-46.0 % Mean Corpuscular Volume 89.6 90.8 80.0-100.0 fL Mean Corpuscular Hemoglobin 30.5 30.5 28.0-32.0 pg Mean Corpuscular Hemoglobin Concent 34.1 33.6 32.0-36.0 g/dL Red Cell Distribution Width 13.1 13.1 11.8-14.3 % Platelet Count 100 L 100 L 140-450 10^3/uL Mean Platelet Volume 8.9 8.4 6.9-10.8 fL Neutrophils (%) (Auto) 87.9 H 87.9 H 37.0-80.0 % Lymphocytes (%) (Auto) 6.6 L 6.9 L 10.0-50.0 % Monocytes (%) (Auto) 5.0 5.0 0.0-12.0 % Eosinophils (%) (Auto) 0.2 0.1 0.0-7.0 % Basophils (%) (Auto) 0.3 0.1 0.0-2.0 % Neutrophils # (Auto) 18.4 H 18.0 H 1.6-8.6 10 ^3/uL Lymphocytes # (Auto) 1.4 1.4 0.4-5.4 10 ^3/uL Monocytes # (Auto) 1.0 1.0 0-1.3 10 ^3/uL Eosinophils # (Auto) 0 0 0-0.8 10 ^3/uL Basophils # (Auto) 0.1 0 0-0.2 10 ^3/uL Nucleated Red Blood Cells 0.1 0.2 % Prothrombin Time 13.0 H 12.7 H 9.3-11.8 sec Prothrombin Time INR 1.25 H 1.22 H 0.9-1.15 Activated Partial Thromboplast Time 77.5 *H 25.1 24.5-34.5 SEC Sodium Level 142 136-145 mmol/L Potassium Level 3.6 3.5-5.1 mmol/L Chloride Level 103 98-107 mmol/L Carbon Dioxide Level 26 20-31 mmol/L Anion Gap 13 5-15 Blood Urea Nitrogen 39 H 9-23 mg/dL Creatinine 1.76 #H 0.550-1.02 mg/dL Glomerular Filtration Rate Calc 29 >90 mL/min BUN/Creatinine Ratio 22.2 H 10.0-20.0 Serum Glucose 205 H 74-106 mg/dL Calcium Level 8.3 L 8.7-10.4 mg/dL Total Bilirubin 0.6 0.2-1.0 mg/dL Aspartate Amino Transferase (AST) 105 H <34 U/L Alanine Aminotransferase (ALT) 33 7-40 U/L Alkaline Phosphatase 60 46-116 U/L Troponin I High Sensitivity 26161 *H 2295 *H </=34 ng/L Total Protein 6.0 5.7-8.2 g/dL Albumin 3.3 3.2-4.8 g/dL Random Vancomycin Level 26.1 H 5-10 ug/mL POC Glucose 196 H 70-106 mg/dl Lactic Acid Level 3.0 *H 0.4-2.0 mmol/L Test 04/19/25 12:47 04/19/25 12:32 04/19/25 11:50 04/19/25 11:15 Range/Units Troponin I High Sensitivity 503 *H 296 *H </=34 ng/L Blood Gas Specimen Type Arterial Blood Gas Sample Site Left radial Blood Gas Patient Temperature 37.0 Arterial Blood Date Drawn Arterial Blood pH 7.367 7.350-7.450 Arterial Blood Partial Pressure CO2 35.6 32.0-45.0 mmHg Arterial Blood Partial Pressure O2 366.7 *H 83.0-108.0 mmHg Arterial Blood HCO3 20.0 L 21.0-28.0 mmol/L Arterial Blood Oxygen Saturation 99.8 H 94.0-98.0 % Arterial Blood Base Excess -4.5 L -2.0-3.0 mmol/L Arterial Blood Oxyhemoglobin 98.4 H 94.0-98.0 % Arterial Blood Carboxyhemoglobin 0.7 0.5-1.5 % Arterial Blood Methemoglobin 0.7 0.0-1.5 % Benny Test Modified Blood Gas Total Hemoglobin 15.80 12.0-16.0 g/dL Blood Gas Set Respiration Rate 22.0 Blood Gas Modality Vent - ac Blood Gas Spontaneous Rate 22 FiO2 % 80.0 Blood Gas Tidal Volume 300.0 Blood Gas PEEP or CPAP 5.0 Blood Gas Critical Value Read Back Yes Blood Gas Notified Whom Dr. bear Blood Gas Notified Time [id number] Blood Gas Notified By Dr. bear White Blood Count 14.6 H 4.4-10.8 10^3/uL Red Blood Count 5.09 4.0-5.20 10^6/uL Hemoglobin 15.6 12.2-16.2 g/dL Hematocrit 46.5 H 36.0-46.0 % Mean Corpuscular Volume 91.4 80.0-100.0 fL Mean Corpuscular Hemoglobin 30.6 28.0-32.0 pg Mean Corpuscular Hemoglobin Concent 33.4 32.0-36.0 g/dL Red Cell Distribution Width 13.2 11.8-14.3 % Platelet Count 101 L 140-450 10^3/uL Mean Platelet Volume 9.0 6.9-10.8 fL Neutrophils (%) (Auto) 78.6 37.0-80.0 % Lymphocytes (%) (Auto) 16.6 10.0-50.0 % Monocytes (%) (Auto) 3.9 0.0-12.0 % Eosinophils (%) (Auto) 0.6 0.0-7.0 % Basophils (%) (Auto) 0.3 0.0-2.0 % Neutrophils # (Auto) 11.5 H 1.6-8.6 10 ^3/uL Lymphocytes # (Auto) 2.4 0.4-5.4 10 ^3/uL Monocytes # (Auto) 0.6 0-1.3 10 ^3/uL Eosinophils # (Auto) 0.1 0-0.8 10 ^3/uL Basophils # (Auto) 0 0-0.2 10 ^3/uL Nucleated Red Blood Cells 0.0 % Sodium Level 138 136-145 mmol/L Potassium Level 4.3 3.5-5.1 mmol/L Chloride Level 99 98-107 mmol/L Carbon Dioxide Level 24 20-31 mmol/L Anion Gap 15 5-15 Blood Urea Nitrogen 31 H 9-23 mg/dL Creatinine 1.14 H 0.550-1.02 mg/dL Glomerular Filtration Rate Calc 48 >90 mL/min BUN/Creatinine Ratio 27.2 H 10.0-20.0 Serum Glucose 441 *H 74-106 mg/dL Hemoglobin A1c 13.3 H <5.7 % A1C Lactic Acid Level 3.1 *H 0.4-2.0 mmol/L Calcium Level 8.7 8.7-10.4 mg/dL Magnesium Level 1.6 1.6-2.6 mg/dL Total Bilirubin 0.9 0.2-1.0 mg/dL Aspartate Amino Transferase (AST) 26 <34 U/L Alanine Aminotransferase (ALT) 14 7-40 U/L Alkaline Phosphatase 68 46-116 U/L B-Type Natriuretic Peptide 144.83 0-100 pg/mL Total Protein 6.5 5.7-8.2 g/dL Albumin 3.7 3.2-4.8 g/dL Urine Color Colorless Yellow Urine Clarity Clear Clear Urine pH 6.5 5.0-9.0 Urine Specific [place] 1.010 1.001-1.035 Urine Protein 1+ H Negative Urine Ketones Trace Negative Urine Blood 2+ H Negative /uL Urine Nitrite Negative Negative Urine Bilirubin Negative Negative Urine Urobilinogen Normal Negative mg/dL Urine Leukocyte Esterase Negative Negative /uL Urine RBC 1 0 - 4 /hpf Urine Microscopic WBC 9 H 0-5 /HPF Urine Squamous Epithelial Cells None seen <5 /hpf Urine Bacteria Few H None Seen /hpf Urine Glucose 4+ H Normal mg/dL Microbiology Date/Time Source Procedure Growth Status 04/19/25 22:35 Nose MRSA Screen - Final Complete 04/19/25 11:15 Voided Urine Urine Culture - Final Escherichia coli Complete Assessment Acute kidney injury superimposed 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 Critical care time 45 minutes. I discussed my plan of care with the and the primary nurse at the bedside I would like to thank Niranjan for the consult, will follow up Plan discussed with: Spouse, Other (Nurse) MARK CARTAGENA MD Apr 21, 2025 09:29
[2025-04-21] MEDS: FUROSEMIDE 40 MG/4 ML VIAL IV ONE (09:53)
[2025-04-21] MEDS: AMPICILLIN & SULBACTAM SODIUM 3 GM in SODIUM CHL 0.9% 100 ML IV SCH (09:54)
[2025-04-21 10:21] LABS: Magnesium 1.8 mg/dL (1.6-2.6)
[2025-04-21 10:23] LABS: Phosphorus 9.8 mg/dL (2.4-5.1)
--- NOTE | 2025-04-21 10:24 | DVH ---
INDICATION: YANI TECHNIQUE: Multiple real-time sonographic images of the kidneys and bladder were obtained. COMPARISON: None FINDINGS: The right kidney measures 9.5 cm in length, which is normal in size. There is normal echoge nicity of the right kidney. No hydronephrosis. There is a right renal cyst measuring 1.3 cm. The left kidney measures 8.4 cm in length, which is normal in size. There is normal echogenicity of t he left kidney. No hydronephrosis. The urinary bladder is decompressed with Gómez catheter. IMPRESSION: Right renal cyst measuring 1.3 cm. No hydronephrosis.
[2025-04-21 10:29] LABS: Hepatitis B Surface Antigen Negative (Negative)
[2025-04-21 10:37] LABS: Hepatitis C Antibody Negative (Negative)
[2025-04-21] MEDS: MAGNESIUM SULFATE 1GM/100ML 100 ML IV SCH (11:40)
[2025-04-21] MEDS: SODIUM BICARB 50mEq/50ml Vial 50 ML in SOD CHL 0.45% 1,000 ML IV SCH (11:44)
--- NOTE | 2025-04-21 13:15 | DVHPN2 ---
Progress Note - Dictate Date Seen: Apr 21, 2025 Medical Necessity Reason Pt with a Central, PICC or Fol: Yes The following are medically ne: Central Line Subjective PT WITH 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% CARDIAC ARREST/ RESP FAILURE SYNCOPE/ VASCULAR COLLAPSE INTUBATED CAD HX OF PTCA STENT AFIB HYPERCOAGULABLE STATE HTN NSTEMI ECHO ANTERIOR APICAL HYPOKINESIS LUNG MASS NON MALIGNANT METABOLIC ENCEPHALOPATHY DEMENTIA DIABETES VASCULOPATHY NEPHROPATHY NEUROPATHY RESP FAILURE METABOLIC ACIDOSIS LEUKOCYTOSIS LUNG INFILTRATE PNA vital signs Vital Sign Date Time Temp Pulse Resp B/P (MAP) Pulse Ox O2 Delivery O2 Flow Rate FiO2 04/21/25 12:45 102 24 133/77 (95) 97 04/21/25 12:01 97.6 97.6 04/21/25 12:00 40 04/21/25 12:00 Mechanical Ventilator+ 04/19/25 10:46 15 Total Intake and Output 04/20/25 04/20/25 04/21/25 15:00 23:00 07:00 Intake Total 595.92 ml 757.875 ml 944.269 ml Output Total 170 ml 100 ml Balance 595.92 ml 587.875 ml 844.269 ml medications Current Medications Medications Dose Ordered Sig/Jorden Route Start Time Stop Time Status Last Admin Dose Admin Norepinephrine Bitartrate 250 ml @ 3.75 mls/hr Q24H IV 04/19/25 11:15 Propofol 100 ml @ 1.773 mls/ hr Q24H IV 04/19/25 11:15 04/21/25 11:39 17.73 MLS/HR Ondansetron HCl 4 mg Q4HP PRN IV 04/19/25 11:30 Acetaminophen 650 mg Q6HP PRN PO 04/19/25 11:30 Nitroglycerin 0.4 mg Q5MINP PRN SL 04/19/25 11:30 Morphine Sulfate 2 mg Q30M PRN IV 04/19/25 11:30 Carvedilol 6.25 mg Q12HR PO 04/19/25 22:00 Hold Ergocalciferol 50,000 unit Q7D PO 04/19/25 11:45 Atorvastatin Calcium 40 mg HS PO 04/19/25 22:00 04/20/25 22:50 40 MG Diagnostic Test (Pha) 1 strip Q6HR 04/19/25 12:00 04/21/25 11:55 1 STRIP Insulin Human Regular Q6HR SC 04/19/25 12:00 04/21/25 11:57 3 UNITS Dextrose 50 ml UD PRN IV 04/19/25 12:00 Midazolam HCl 50 ml @ 1 mls/hr Q24H IV 04/19/25 12:15 04/19/25 10:46 5 MLS/HR Phenylephrine HCl 250 ml @ 30 mls/hr Q8H20M IV 04/19/25 12:30 04/21/25 08:49 30 MLS/HR Aspirin 81 mg DAILY PO 04/20/25 10:00 04/20/25 10:12 81 MG Heparin Sodium/ Dextrose 250 ml @ 7.08 mls/hr Q24H IV 04/19/25 18:15 UNV Clindamycin Phosphate 50 ml @ 50 mls/hr Q8HR IV 04/21/25 14:00 Levofloxacin/ Dextrose 100 ml @ 100 mls/hr Q48H IV 04/21/25 08:30 Cancel Ampicillin Sodium/ Sulbactam Sodium 3 gm/Sodium Chloride 100 ml @ 100 mls/hr Q12H IV 04/21/25 09:30 04/21/25 09:54 100 MLS/HR Sodium Bicarbonate 50 ml/ Sodium Chloride 1,050 ml @ 75 mls/hr Q14H IV 04/21/25 11:00 04/21/25 11:44 75 MLS/HR laboratory and microbiology Laboratory Tests 04/21/25 03:07 Test 04/21/25 03:07 Range/Units Serum Glucose 174 H 74-106 mg/dL Problem List 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% CARDIAC ARREST/ RESP FAILURE SYNCOPE/ VASCULAR COLLAPSE INTUBATED CAD HX OF PTCA STENT AFIB HYPERCOAGULABLE STATE HTN NSTEMI ECHO ANTERIOR APICAL HYPOKINESIS MARKED ELEVATION IN TROPONIN LUNG MASS NON MALIGNANT METABOLIC ENCEPHALOPATHY DEMENTIA DIABETES VASCULOPATHY NEPHROPATHY ACUTE RENAL FAILURE NEUROPATHY RESP FAILURE METABOLIC ACIDOSIS LEUKOCYTOSIS LUNG INFILTRATE PNA ELEVATED LIVER ENZYMES CONSISTENT WITH SHOCK SYNDROME Assessment/Plan ABX INHALER CHECK BNP CONSIDER LHC WITH NON CONTRAST CONTRAST AND MINIMAL CONTRAST USE Dietary Evaluation Review Comments: 1) Initiate Pro-Stat @ 30 mL qd 2) Initiate MVI @ 1 tb qd 3) If patient remains NPO > 7 days, consider EN/TPN to meet at least 75% of estimated daily needs 4) If GI route is preferred, consider Glucerna @ 35 mL/hr goal rate as tolerated. TF regimen (including Propofol and Pro-Stat) will provide 1482 kcals, 65g Pro, 676 mL free H2O per 24 hrs. Goal rate meets 100% estimated energy needs and ~70% estimated protein needs 5) Advance to 60g CCHO cardiac diet when medically feasible, pending ST approval 6) Follow-up with cardiology and neurology 7) Continue to monitor I&O, labs, and skin integrity Expected Outcomes/Goals: 1) patient to receive nutrition support within 7 days of NPO status 2) labs and wound to improve 3) diet to advance 4) f/u in 2-3 days Plan discussed with: Patient, Other FIOR WALTER MD Apr 21, 2025 13:15
[2025-04-21 15:16] LABS: Creatinine, Urine 87.44 mg/dL (30.0-125.0); Protein, Urine 66.7 mg/dL (1-14); Urine Protein/Creatinine Ratio 0.76
[2025-04-21] MEDS: CLINDAMYCIN 300MG IV 50 ML IV SCH (15:19)
--- NOTE | 2025-04-21 15:59 | ECG ---
[facility] Test Date: 2025-04-20 Test Time: 13:50:32 Pat Name: SHE MOLINA Department: ICU Room: [address] [place] [address] A Gender: F Program Arranger: MIAH : 1945 Requested By: ROXANNE MILLER Order Number: [id number] Reading MD: Shamar De La Cruz Measurements Intervals D Lo Rate: 125 P: 0 HI: 0 QRS: 63 QRSD: 89 T: 226 QT: 366 QTc: 528 Interpretive Statements Atrial fibrillation Repol abnrm, prob ischemia, anterolateral lds Prolonged QT interval Electronically Signed On 04-22-2025 22:16:30 PDT by Shamar De La Cruz Please click the below link to view image of tracing.
[2025-04-21 17:13] LABS: Base Excess -10.1 mmol/L (-2.0-3.0)
[2025-04-21] MEDS ORDERED: SODIUM BICARB 50mEq/50ml Vial 100 ML in SOD CHL 0.45% 1,000 ML IV SCH (17:30)
--- NOTE | 2025-04-21 19:12 | DVHPN2 ---
Progress Note - Dictate Date Seen: Apr 21, 2025 Medical Necessity Reason Pt with a Central, PICC or Fol: Yes The following are medically ne: Central Line vital signs Vital Sign Date Time Temp Pulse Resp B/P (MAP) Pulse Ox O2 Delivery O2 Flow Rate FiO2 04/21/25 18:32 96/42 04/21/25 18:13 61 28 99 45 04/21/25 16:15 97.9 208.2 04/21/25 16:00 Mechanical Ventilator+ 04/19/25 10:46 15 Total Intake and Output 04/20/25 04/20/25 04/21/25 15:00 23:00 07:00 Intake Total 595.92 ml 757.875 ml 944.269 ml Output Total 170 ml 100 ml Balance 595.92 ml 587.875 ml 844.269 ml medications Current Medications Medications Dose Ordered Sig/Jorden Route Start Time Stop Time Status Last Admin Dose Admin Norepinephrine Bitartrate 250 ml @ 3.75 mls/hr Q24H IV 04/19/25 11:15 04/21/25 18:32 3.75 MLS/HR Propofol 100 ml @ 1.773 mls/ hr Q24H IV 04/19/25 11:15 04/21/25 11:39 17.73 MLS/HR Ondansetron HCl 4 mg Q4HP PRN IV 04/19/25 11:30 Acetaminophen 650 mg Q6HP PRN PO 04/19/25 11:30 Nitroglycerin 0.4 mg Q5MINP PRN SL 04/19/25 11:30 Morphine Sulfate 2 mg Q30M PRN IV 04/19/25 11:30 Carvedilol 6.25 mg Q12HR PO 04/19/25 22:00 Hold Ergocalciferol 50,000 unit Q7D PO 04/19/25 11:45 Atorvastatin Calcium 40 mg HS PO 04/19/25 22:00 04/20/25 22:50 40 MG Diagnostic Test (Pha) 1 strip Q6HR 04/19/25 12:00 04/21/25 18:47 1 STRIP Insulin Human Regular Q6HR SC 04/19/25 12:00 04/21/25 18:52 264 UNITS Dextrose 50 ml UD PRN IV 04/19/25 12:00 Midazolam HCl 50 ml @ 1 mls/hr Q24H IV 04/19/25 12:15 04/21/25 15:20 1 MLS/HR Phenylephrine HCl 250 ml @ 30 mls/hr Q8H20M IV 04/19/25 12:30 04/21/25 15:21 30 MLS/HR Aspirin 81 mg DAILY PO 04/20/25 10:00 04/20/25 10:12 81 MG Heparin Sodium/ Dextrose 250 ml @ 7.08 mls/hr Q24H IV 04/19/25 18:15 UNV Clindamycin Phosphate 50 ml @ 50 mls/hr Q8HR IV 04/21/25 14:00 04/21/25 15:19 50 MLS/HR Levofloxacin/ Dextrose 100 ml @ 100 mls/hr Q48H IV 04/21/25 08:30 Cancel Ampicillin Sodium/ Sulbactam Sodium 3 gm/Sodium Chloride 100 ml @ 100 mls/hr Q12H IV 04/21/25 09:30 04/21/25 09:54 100 MLS/HR Sodium Bicarbonate 100 ml/Sodium Chloride 1,100 ml @ 75 mls/hr [id number] IV 04/21/25 18:45 laboratory and microbiology Laboratory Tests 04/21/25 03:07 Test 04/21/25 03:07 Range/Units Serum Glucose 174 H 74-106 mg/dL Assessment/Plan Impression Acute hypoxemic respiratory failure Altered mental status Elevated troponin NSTEMI Patient seen and examined in ICU Events On mechanical ventilation S/p intubation PEEP 5, FiO2 45% Family declining [facility] Labs and imaging reviewed Worsening renal function ABG reviewed pH 7.28, pCO2 33, pO2 95 On bicarb drip Management Vent support Titrate to maintain sats 90% or above Sedation for vent synchrony Continue antibiotics F/u cultures Bronchodilators Monitor renal function Monitor electrolytes Supplement as needed Pressors as needed for hemodynamic support To maintain a mean arterial pressure of 65 mmHg F/u cardiology Continue bicarb drip Recommend 1/2 NS with 2 amps sodium bicarb Prognosis generally poor DVT prophylaxis Critical care time 35 minutes Dietary Evaluation Review Comments: 1) Initiate Pro-Stat @ 30 mL qd 2) Initiate MVI @ 1 tb qd 3) If patient remains NPO > 7 days, consider EN/TPN to meet at least 75% of estimated daily needs 4) If GI route is preferred, consider Glucerna @ 35 mL/hr goal rate as tolerated. TF regimen (including Propofol and Pro-Stat) will provide 1482 kcals, 65g Pro, 676 mL free H2O per 24 hrs. Goal rate meets 100% estimated energy needs and ~70% estimated protein needs 5) Advance to 60g CCHO cardiac diet when medically feasible, pending ST approval 6) Follow-up with cardiology and neurology 7) Continue to monitor I&O, labs, and skin integrity Expected Outcomes/Goals: 1) patient to receive nutrition support within 7 days of NPO status 2) labs and wound to improve 3) diet to advance 4) f/u in 2-3 days Plan discussed with: Other (Rn) ILDA PARIKH MD Apr 21, 2025 19:12
[2025-04-21 19:15] LABS: Base Excess -12.3 mmol/L (-2.0-3.0)
[2025-04-21] MEDS: SODIUM CHLORIDE 0.9% 500 ML IV ONE (21:44)
[2025-04-21] MEDS ORDERED: AMIODARONE HCL 200 MG TAB PO SCH (22:00)
[2025-04-21] MEDS: AMIODARONE HCL 200 MG TAB PO ONE (22:13)
[2025-04-22] VITALS (110 sets, daily range): BP systolic 67–249; BP diastolic 18–163; PULSE 58–102; RESP 16–38; TEMP 93.2–100; O2SAT 94–100
[2025-04-22] MEDS: DOPamine 1600MCG/ML D5W 250 ML IV SCH ×3 (00:16→15:53)
[2025-04-22 03:52] LABS: Alkaline Phosphatase 80 U/L (46-116); Anion Gap 21 (5-15); Bilirubin, Total 0.6 mg/dL (0.2-1.0); Chloride 99 mmol/L (98-107); Magnesium 2.5 mg/dL (1.6-2.6)
[2025-04-22 03:57] LABS: Albumin 2.5 g/dL (3.2-4.8); Aspartate Aminotransferase 431 U/L (<34); Calcium 7.1 mg/dL (8.7-10.4); Carbon Dioxide 16 mmol/L (20-31); Glucose 165 mg/dL (74-106); Sodium 136 mmol/L (136-145); Total Protein 4.9 g/dL (5.7-8.2)
[2025-04-22 03:59] LABS: BUN/Creatinine Ratio 17.7 (10.0-20.0)
[2025-04-22 04:02] LABS: Alanine Aminotransferase 324 U/L (7-40); Blood Urea Nitrogen 58 mg/dL (9-23); Potassium 4.7 mmol/L (3.5-5.1)
[2025-04-22 04:29] LABS: Hematocrit 36.8 % (36.0-46.0); Hemoglobin 12.3 g/dL (12.2-16.2); Mean Corpuscular Hemoglobin 30.4 pg (28.0-32.0); Mean Corpuscular Hgb Conc. 33.3 g/dL (32.0-36.0); Mean Corpuscular Volume 91.1 fL (80.0-100.0); Platelet Count (auto) 80 10^3/uL (140-450); Red Blood Cells 4.04 10^6/uL (4.0-5.20); Red Cell Distribution Width 13.6 % (11.8-14.3); White Blood Cell 23.8 10^3/uL (4.4-10.8)
[2025-04-22 04:33] LABS: Basophils % (manual) 0 (0.0-2.0); Blast Cells 0; Eosinophils % (manual) 0 (0-7); Monocytes % (manual) 0 (0-12); Myelocytes % 0; Promyelocytes % 0; Reactive Lymphocytes 0
--- NOTE | 2025-04-22 05:26 | DVH ---
EXAM: XY CHEST PORTABLE Indication: PATIENT INTUBATED Technique: Single frontal view of the chest was obtained Comparison: XY CHEST PORTABLE on DOS: 04/21/25, XY CHEST PORTABLE on DOS: 04/20/25, XY CHEST PORTABLE o n DOS: 04/19/25, XY CHEST PORTABLE on DOS: 04/19/25, XY CHEST XRAY 1 VIEW on DOS: 10/22/23, XY CHEST PO RTABLE on DOS: 04/21/25 FINDINGS: Lines and Tubes: Endotracheal tube and enteric catheter in satisfactory position. Lungs: Right upper lobe consolidation Pleura: No effusion. No pneumothorax. Cardiomediastinal contours: Unremarkable Bones: Unremarkable IMPRESSION: Lines and tubes in satisfactory position. No significant interval change.
[2025-04-22 05:39] LABS: Band Neutrophils % (manual) 18; Lymphocytes % (manual) 8 (10.0-50.0); Metamyelocytes % 1; Platelet Estimate Decreased
[2025-04-22 07:03] LABS: Base Excess -16.2 mmol/L (-2.0-3.0)
[2025-04-22] MEDS: SODIUM BICARB 8.4% 50Meq/50ml SYR INJ ONE ×2 (07:29)
[2025-04-22] MEDS: SODIUM BICARB 8.4% 50Meq/50ml SYR Vial IV ONE (07:33)
[2025-04-22] MEDS: SODIUM BICARB 50mEq/50ml Vial 100 ML in SOD CHL 0.45% 1,000 ML IV SCH (08:00)
--- NOTE | 2025-04-22 08:16 | ECG ---
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
--- NOTE | 2025-04-22 09:14 | DVHPN2 ---
Subjective Non-responsive Reviewed: Care Plan, H&P, Labs, Medications Changes from previous H/P or p: No Changes General: Per HPI Objective Vitals Vital Signs Date Time Temp Pulse Resp B/P (MAP) Pulse Ox O2 Delivery O2 Flow Rate FiO2 04/22/25 06:45 98.8 63 33 86/29 (48) 99 209.8 04/22/25 06:10 45 04/22/25 06:00 Mechanical Ventilator+ Intake/Output Intake and Output 04/22/25 07:00 Intake Total 1964.894 ml Output Total 125 ml Balance 1839.894 ml Intake Oral 60 ml IV Total 1904.894 ml Output Urine Total 125 ml General Appearance: moderate distress, Other (Intubated and sedated) HEENT: Other (Poor dentition) Lungs: Other (Rhonchi right upper lobe. Mechanical ventilation) Chest/Breasts: Other (Ecchymosis to chest) Cardiovascular: Normal S1, Normal S2, Other (Atrial fibrillation) Genitourinary: No Apparent Abnormalities (Gómez catheter) Skin: Dry, Intact Psych/Mental Status: Other (Unable to assess) Medications Current Medications Medications Dose Ordered Sig/Jorden Route Start Time Stop Time Status Last Admin Dose Admin Norepinephrine Bitartrate 250 ml @ 3.75 mls/hr Q24H IV 04/19/25 11:15 04/21/25 18:32 3.75 MLS/HR Propofol 100 ml @ 1.773 mls/ hr Q24H IV 04/19/25 11:15 04/22/25 05:42 17.73 MLS/HR Ondansetron HCl 4 mg Q4HP PRN IV 04/19/25 11:30 Acetaminophen 650 mg Q6HP PRN PO 04/19/25 11:30 Nitroglycerin 0.4 mg Q5MINP PRN SL 04/19/25 11:30 Morphine Sulfate 2 mg Q30M PRN IV 04/19/25 11:30 Carvedilol 6.25 mg Q12HR PO 04/19/25 22:00 Hold Ergocalciferol 50,000 unit Q7D PO 04/19/25 11:45 Atorvastatin Calcium 40 mg HS PO 04/19/25 22:00 04/21/25 21:37 40 MG Diagnostic Test (Pha) 1 strip Q6HR 04/19/25 12:00 04/22/25 05:06 1 STRIP Insulin Human Regular Q6HR SC 04/19/25 12:00 04/22/25 05:07 2 UNITS Dextrose 50 ml UD PRN IV 04/19/25 12:00 Midazolam HCl 50 ml @ 1 mls/hr Q24H IV 04/19/25 12:15 04/21/25 15:20 1 MLS/HR Phenylephrine HCl 250 ml @ 30 mls/hr Q8H20M IV 04/19/25 12:30 04/21/25 15:21 30 MLS/HR Aspirin 81 mg DAILY PO 04/20/25 10:00 04/20/25 10:12 81 MG Heparin Sodium/ Dextrose 250 ml @ 7.08 mls/hr Q24H IV 04/19/25 18:15 UNV Levofloxacin/ Dextrose 100 ml @ 100 mls/hr Q48H IV 04/21/25 08:30 Cancel Ampicillin Sodium/ Sulbactam Sodium 3 gm/Sodium Chloride 100 ml @ 100 mls/hr Q12H IV 04/21/25 09:30 04/21/25 21:37 100 MLS/HR Sodium Bicarbonate 100 ml/Sodium Chloride 1,100 ml @ 75 mls/hr [id number] IV 04/21/25 18:45 04/22/25 08:00 75 MLS/HR Amiodarone HCl 400 mg DAILY PO 04/22/25 10:00 Laboratory Results Laboratory Tests 04/22/25 02:54 Chemistry Test 04/21/25 09:17 04/22/25 02:54 Magnesium Level 1.8 mg/dL (1.6-2.6) 2.5 mg/dL (1.6-2.6) Phosphorus Level 9.8 mg/dL (2.4-5.1) H Albumin 2.5 g/dL (3.2-4.8) L Calcium Level 7.1 mg/dL (8.7-10.4) L Total Protein 4.9 g/dL (5.7-8.2) L LFT Test 04/22/25 02:54 Alanine Aminotransferase (ALT) 324 U/L (7-40) H Alkaline Phosphatase 80 U/L (46-116) Aspartate Amino Transferase (AST) 431 U/L (<34) H Total Bilirubin 0.6 mg/dL (0.2-1.0) Urinalysis Test 04/19/25 11:15 04/21/25 13:40 Urine Color Colorless (Yellow) Urine Clarity Clear (Clear) Urine pH 6.5 (5.0-9.0) Urine Specific [place] 1.010 (1.001-1.035) Urine Protein 1+ (Negative) H Urine Ketones Trace (Negative) Urine Blood 2+ /uL (Negative) H Urine Nitrite Negative (Negative) Urine Bilirubin Negative (Negative) Urine Urobilinogen Normal mg/dL (Negative) Urine Leukocyte Esterase Negative /uL (Negative) Urine RBC 1 /hpf (0 - 4) Urine Microscopic WBC 9 /HPF (0-5) H Urine Squamous Epithelial Cells None seen /hpf (<5) Urine Bacteria Few /hpf (None Seen) H Urine Glucose 4+ mg/dL (Normal) H Urine Creatinine 87.44 mg/dL (30.0-125.0) Urine Protein/Creatinine Ratio 0.76 Urine Sodium 21 mmol/L (40-220) L Urine Total Protein 66.7 mg/dL (1-14) H Blood Gas Results Test 04/21/25 16:53 04/21/25 19:08 04/22/25 06:58 Arterial Blood pH 7.281 (7.350-7.450) 7.311 (7.350-7.450) 7.182 (7.350-7.450) FiO2 % 45.0 45.0 45.0 Microbiology Microbiology Date/Time Source Procedure Growth Status 04/19/25 22:35 Nose MRSA Screen - Final Complete 04/19/25 11:50 Blood Blood Culture - Preliminary NO GROWTH AFTER 48 HOURS OF INCUBATION. Resulted 04/19/25 11:47 Sputum Gram Stain - Final Resulted 04/19/25 11:47 Sputum Respiratory Culture - Preliminary Resulted 04/19/25 11:15 Voided Urine Urine Culture - Final Escherichia coli Complete Labs and/or images reviewed: Labs reviewed by me, Image(s) reviewed by me Assessment/Plan Assessment/Plan Impression: -syncope with collapse -metabolic encephalopathy -acute hypoxic respiratory failure -NSTEMI,? Type 1 -probable acute systolic heart failure with ejection fraction 40% -acute kidney injury, vasomotor nephropathy -diabetes mellitus -hypertensive crisis -? Right upper lobe mass -atrial fibrillation with rapid ventricular rate Plan: Events: Stat CT scan with pending interpretation. Probable Cerebral edema. Wean off sedation. Stop Amiodarone given Controlled HR. -continue current ventilator settings -check D-dimer, g of the chest if found to be positive. -start gentle IV hydration -regular insulin sliding scale -adjust antibiotic therapy: Unasyn, vancomycin -bronchodilators -echocardiogram reviewed: Anterior wall and apical akinesis,? Acute NV versus takotsubo syndrome -continue current anticoagulation with heparin. Noted that patient was on Eliquis at home -antihypertensives as needed -continue aspirin -repeat labs, chest x-ray, ABG in a.m. Critical care time spent with patient discussing and formulating plan of care: 40 minutes. This does not include time spent performing procedures. This medical document was created using an electronic medical record system with [employer] dictation system. Although this document has been carefully reviewed, there may still be some phonetic and typographical errors. These areas are purely typographical due to imperfections of the software programs, and do not reflect any compromise in the patient's medical care. Plan discussed with: Spouse My Orders Orders - MILLICENT BLACKWOOD NP Procedure Category Date Status Time Kidney US 04/21/25 Resulted 09:11 Ampicillin & PHA 04/21/25 In Process Sulbactam Sodium 09:30 * Cardiology Consult CONS 04/21/25 Transmitted 10:57 Chest Portable XY 04/22/25 Resulted 04:00 Abg W/ Co-Ox RT 04/22/25 Logged 04:00 Apply Barrier Cream BIRD 04/21/25 In Process 13:[address] 04/22/25 Taken 08:16 Comprehensive LAB 04/23/25 Verified Metabolic Panel 05:00 Comprehensive LAB 04/24/25 Verified Metabolic Panel 05:00 Comprehensive LAB 04/25/25 Verified Metabolic Panel 05:00 Complete Blood Count LAB 04/23/25 Verified 05:00 Complete Blood Count LAB 04/24/25 Verified 05:00 Complete Blood Count LAB 04/25/25 Verified 05:00 Chest Portable XY 04/23/25 Logged 05:00 Chest Portable XY 04/24/25 Logged 05:00 Chest Portable XY 04/25/25 Logged 05:00 Abg W/ Co-Ox RT 04/23/25 Logged 05:00 Abg W/ Co-Ox RT 04/24/25 Logged 05:00 Abg W/ Co-Ox RT 04/25/25 Logged 05:00 * Neurology Consult CONS 04/22/25 Transmitted 09:06 Date of Service: Apr 22, 2025 Billing Provider: MILLICENT BLACKWOOD NP Common Visit Codes: [id number] CARE 30-74 MIN MILLICENT BLACKWOOD NP Apr 22, 2025 09:14
--- NOTE | 2025-04-22 09:31 | DVH ---
EXAM: CT HEAD WITHOUT CONTRAST INDICATION: UNEQUAL PUPILS TECHNIQUE: CT of the head without intravenous contrast. Radiation Dose : 1. Head: CT Dose: CTDI volume is 53.0 mGy. Dose-length product is 938.66 mGy*cm The dose indicators for CT are the volume Computed Tomography (CT) Dose Index (CTDIvol) and the Dose Length Product (DLP), and are measured in units of mGy and mGy-cm, respectively. These indicators are not patient dose, but values generated from the CT scanner acquisition factors. The report includes radiation exposure data for exposures received during this examination. COMPARISON: CT HEAD WITHOUT CONTRAST on DOS: 04/19/25 FINDINGS: Loss of mendoza-white differentiation throughout the entire cerebrum is suspicious for diffuse cerebral edema. There are acute blood products in the right periventricular region which measures approximately 3.4 x 3.1 cm. There is prominent leftward midline shift of approximately 8 mm The visualized paranasal sinuses and mastoid air cells are clear. The surrounding soft tissues and osseous structures are unremarkable. IMPRESSION: Loss of mendoza-white differentiation throughout the entire cerebrum is suspicious for diffuse cerebral edema. There are acute blood products in the right periventricular region which measures approximately 3.4 x 3.1 cm. There is prominent leftward midline shift of approximately 7.6 mm Consider brain MRI for further characterization. Radiation optimization: All CT scans at this facility use at least one of these dose optimization denise hniques: automated exposure control mA and/or kV adjustment per patient size (includes targeted exam s where dose is matched to clinical indication) or iterative reconstruction.
[2025-04-22] MEDS ORDERED: AMPICILLIN & SULBACTAM SODIUM 3 GM in SODIUM CHL 0.9% 100 ML IV SCH (10:00)
--- NOTE | 2025-04-22 11:03 | DVHINCON2 ---
Date of service: Apr 22, 2025 Referring Physician Niranjan Reason for Consultation Cerebral edema, anoxic injury History of Present Illness Ms. Haskins is a 79 years old female with a history of hypertension, diabetes, dyslipidemia, congestive heart failure, AFib, COPD, pulmonary nodule, the patient was brought to the hospital. The patient was brought to the hospital for altered mental status. Apparently, she had two syncopal at home, the 1st one was associated with bradycardia, later, she was found nonresponsive in her frond yard. In the hospital, she was intubated, she also found to have elevated troponin one/heart attack, and insulin drip started In the follow up CT brain scan, there was evidence of diffuse bilateral hemisphere edema, intra cerebral hemorrhage, mass effects Urinalysis, 04/19/2025: WBC: 9, urine leukocyte esterase: Negative ABG, 04/22/2025: Metabolic acidosis WBC/HB/PLT/MCV, 04/22/2025: 23.9/12.3/80/91.1 PT/INR/PTT, 04/20/2025: 11/9/1.14/55.6 BUN/CR, 04/22/2025: 58/3.28 TBI/AST/ALT/AP, 04/22/2025: 0.6/431/324/80 Troponin one high sensitivity, 04/19/2025: To 96, 2295, 04/20/2025: 39213, 04/21/2025: 80370 CT head, 04/19/2025: CT brain, 04/22/2025: 1. Loss of mendoza-white differentiation throughout the entire cerebrum is suspicious for diffuse cerebral edema. 2. There are acute blood products in the right periventricular region which measures approximately 4 x 3.1 cm. 3. There is prominent leftward midline shift of approximately 7 mm 4. Consider brain MRI for further characterization. Past Medical History Hypertension, diabetes, dyslipidemia, congestive heart failure, atrial fibril lation, COPD, pulmonary nodule, dementia Past Surgical History Right upper lung lobe mass removal, bilateral tubal ligation, oophorectomy, PTCA Family History: Asthma G8 MOTHER, Onset:Unknown G8 SISTER Diabetes mellitus G8 MOTHER FH: myocardial infarction G8 MOTHER, Onset:Unknown Hypertension G8 MOTHER G8 SISTER Thyroid disease G8 SISTER G8 SISTER Family History Hypertension, diabetes, coronary artery disease, heart attack, asthma, thyroid disorder Social History She was not a tobacco smoke, no history of drug or alcohol abuse Allergies: Coded Allergies: Cephalosporins (Verified Allergy, Unknown, ITCHING ALL OVER, 04/19/25) Empagliflozin (Verified Allergy, Unknown, 04/20/25) ALLERGY PER REPORT Penicillins (Verified Allergy, Unknown, 04/20/25) ALLERGY PER REPORT Home Meds Active Scripts Prednisone (Prednisone) 20 Mg Tab, 20 MG PO BID for 5 Days, #10 MG Prov:CINYD NAYAK MD 07/31/24 Diphenhydramine Hcl (Benadryl Allergy) 25 Mg Cap, 1 CAP PO TID for 5 Days, #15 CAP 1 Refill Prov:CINDY NAYAK MD 07/31/24 Prednisone (Prednisone) 20 Mg Tab, 40 MG PO DAILY for 6 Days, #5 MG Prov:[facility] 10/24/23 Budesonide (Inhalation) (Budesonide) 0.25 Mg/2 Ml Izzy, 0.25 MG IN BID for 30 Days, ML Prov:[facility] 10/24/23 Furosemide (Lasix) 20 Mg Tb, 1 TAB PO DAILY for 10 Days, #10 TAB 1 Refill Prov:[facility] 10/24/23 Azithromycin (Azithromycin) 500 Mg Tab, 500 MG PO DAILY for 3 Days, #3 TAB Prov:[facility] 10/24/23 Ipratropium [place] (Ipratropium [place]) 0.02 % Micaela, 0.5 MG NEB Q4HR for 30 Days, #1 ML Prov:[facility] 10/24/23 Ergocalciferol (VITAMIN D 74224 UNIT) 50,000 [place], [address] UNIT PO Q7D for 30 Days, #5 CAP Prov:[facility] 10/24/23 Carvedilol (COREG) 3.125 Mg Tab, 6.25 MG PO Q12HR for 30 Days, #120 TAB Prov:[facility] 10/24/23 Aspirin (Aspirin Low Dose) 81 Mg Tab, 81 MG PO DAILY for 30 Days, #30 TAB Prov:[facility] 10/24/23 Albuterol Sulfate (Ventolin) 2.5 Mg/0.5 Ml Nb, 2.5 MG NEB Q4HR for 30 Days, #1 INH Prov:ANDREW AGUIRRE RESIDENT 10/24/23 Reported Medications Atorvastatin Calcium (ATORVASTATIN CALCIUM) 40 Mg Tab, 1 TAB PO DAILY, #30 TAB 5 Refills 10/23/23 Promethazine Hcl (Promethazine Hcl) 25 Mg Tab, 6.25 MG PO Q6HPRN PRN for FOR COUGH 10/23/23 Fluoxetine Hcl (Fluoxetine Hcl) 10 Mg Cap, 10 MG PO DAILY, MG 10/23/23 Empagliflozin (Jardiance) 10 Mg Tab, 10 MG PO DAILY, TAB 10/23/23 Losartan Potassium (Losartan Potassium) 25 Mg Tab, 1 TAB PO DAILY, #90 TAB 1 Refill 03/21/18 Clonidine Hydrochloride (Clonidine Hcl) 0.1 Mg Tab, 0.1 MG PO, TAB 03/21/18 Donepezil Hydrochloride (DONEPEZIL HCL) 5 Mg Tab, 1 TAB PO DAILY, #30 TAB 5 Refills 03/21/18 Current Medications Current Medications Medications (Trade) Dose Ordered Sig/Jorden Route PRN Reason Start Time Stop Time Status Last Admin Clindamycin Phosphate 50 ml @ 50 mls/hr Q8HR IV 04/21/25 14:00 04/22/25 08:50 DC 04/22/25 05:06 Sodium Bicarbonate 50 ml/ Sodium Chloride 1,050 ml @ 75 mls/hr Q14H IV 04/21/25 11:00 04/21/25 17:33 DC 04/21/25 11:44 Sodium Bicarbonate 100 ml/Sodium Chloride 1,100 ml @ 50 mls/hr Q22H IV 04/21/25 17:30 04/21/25 18:33 DC Sodium Bicarbonate 100 ml/Sodium Chloride 1,100 ml @ 75 mls/hr [id number] IV 04/21/25 18:45 04/22/25 09:12 DC 04/22/25 08:00 Amiodarone HCl (Cordarone Tablet) 400 mg DAILY PO 04/21/25 22:00 04/21/25 21:50 DC Amiodarone HCl (Cordarone Tablet) 400 mg DAILY PO 04/22/25 10:00 Sodium Bicarbonate 150 ml/Dextrose 1,150 ml @ 100 mls/hr [id number] IV 04/22/25 09:15 Dopamine HCl/ Dextrose 250 ml @ 3.57 mls/hr Q24H IV 04/22/25 09:15 04/22/25 09:55 Calcium Acetate (Phoslo Capsule) 2,001 mg TID NG 04/22/25 14:00 Review of Systems As above, the other systems are negative Vital Signs Vital Signs Date Time Temp Pulse Resp B/P (MAP) Pulse Ox O2 Delivery O2 Flow Rate FiO2 04/22/25 10:03 75 31 104/39 (60) 99 45 04/22/25 06:45 98.8 209.8 04/22/25 06:00 Mechanical Ventilator+ Physical Exam The patient is well-nourished and well-developed with no distress. The patient is intubated HEENT: Normocephalic, neck supple, no carotid bruits Lungs: Clear to auscultation Cardiovascular: Regular rate and region, S1, S2, no murmurs Abdomen: Soft, nontender, normal bowel sounds MENTAL STATUS: Not responsive to the surroundings, CRANIAL NERVES: Pupils are round and nonreactive, Rt: 4mm, Lt: 1-2 mm. There are no corneal reflexes but weak doll's eyes phenomenon. No signs of facial we akness. There are no gagging or coughing reflexes SENSATION: No responses to pain stimuli. MOTOR: Normal tone in the upper and lower extremity. Normal muscle bulk. No fasciculations. No spontaneous movement. REFLEXES: Deep tendon reflexes are symmetrical. No pathological reflexes. CEREBELLAR/COORDINATION: Deferred GAIT/STATION: deferred. Labs/Diagnostic Data Labs Test 04/22/25 06:58 04/22/25 05:01 04/22/25 02:54 04/21/25 13:40 Range/Units Blood Gas Specimen Type Arterial Blood Gas Sample Site Right brachial Blood Gas Patient Temperature 37.0 Arterial Blood Date Drawn [id number] Arterial Blood pH 7.182 *L 7.350-7.450 Arterial Blood Partial Pressure CO2 29.3 L 32.0-45.0 mmHg Arterial Blood Partial Pressure O2 94.3 83.0-108.0 mmHg Arterial Blood HCO3 10.7 L 21.0-28.0 mmol/L Arterial Blood Oxygen Saturation 94.1 94.0-98.0 % Arterial Blood Base Excess -16.2 L -2.0-3.0 mmol/L Arterial Blood Oxyhemoglobin 93.5 L 94.0-98.0 % Arterial Blood Carboxyhemoglobin 0.5 0.5-1.5 % Arterial Blood Methemoglobin 0.1 0.0-1.5 % Benny Test N/a Blood Gas Total Hemoglobin 12.70 12.0-16.0 g/dL Blood Gas Set Respiration Rate 26.0 Blood Gas Modality Vent - ac FiO2 % 45.0 Blood Gas Tidal Volume 300.0 Blood Gas PEEP or CPAP 5.0 Blood Gas Critical Value Read Back Yes Blood Gas Notified Whom Np. hallie galo Blood Gas Notified Time [id number] Blood Gas Notified By Rt judi junior POC Glucose 152 H 70-106 mg/dl White Blood Count 23.8 H 4.4-10.8 10^3/uL Red Blood Count 4.04 4.0-5.20 10^6/uL Hemoglobin 12.3 12.2-16.2 g/dL Hematocrit 36.8 # 36.0-46.0 % Mean Corpuscular Volume 91.1 80.0-100.0 fL Mean Corpuscular Hemoglobin 30.4 28.0-32.0 pg Mean Corpuscular Hemoglobin Concent 33.3 32.0-36.0 g/dL Red Cell Distribution Width 13.6 11.8-14.3 % Platelet Count 80 L 140-450 10^3/uL Mean Platelet Volume 10.2 6.9-10.8 fL Neutrophils (%) (Auto) 37.0-80.0 % Lymphocytes (%) (Auto) 10.0-50.0 % Monocytes (%) (Auto) 0.0-12.0 % Basophils (%) (Auto) 0.0-2.0 % Neutrophils # (Auto) 1.6-8.6 10 ^3/uL Lymphocytes # (Auto) 0.4-5.4 10 ^3/uL Monocytes # (Auto) 0-1.3 10 ^3/uL Differential Total Cells Counted 100.0 100 Neutrophils % (Manual) 73 37.0-80.0 Band Neutrophils % (Manual) 18 Lymphocytes % (Manual) 8 L 10.0-50.0 Monocytes % (Manual) 0 0-12 Eosinophils % (Manual) 0 0-7 Basophils % (Manual) 0 0.0-2.0 Metamyelocytes % (manual) 1 Myelocytes % (Manual) 0 Promyelocytes % (Manual) 0 Blast Cells % (Manual) 0 Nucleated Red Blood Cells 1.0 % Reactive Lymphocytes 0 Platelet Estimate Decreased Sodium Level 136 136-145 mmol/L Potassium Level 4.7 3.5-5.1 mmol/L Chloride Level 99 98-107 mmol/L Carbon Dioxide Level 16 L 20-31 mmol/L Anion Gap 21 H 5-15 Blood Urea Nitrogen 58 H 9-23 mg/dL Creatinine 3.28 H 0.550-1.02 mg/dL Glomerular Filtration Rate Calc 14 >90 mL/min BUN/Creatinine Ratio 17.7 10.0-20.0 Serum Glucose 165 H 74-106 mg/dL Calcium Level 7.1 L 8.7-10.4 mg/dL Magnesium Level 2.5 1.6-2.6 mg/dL Total Bilirubin 0.6 0.2-1.0 mg/dL Aspartate Amino Transferase (AST) 431 H <34 U/L Alanine Aminotransferase (ALT) 324 H 7-40 U/L Alkaline Phosphatase 80 46-116 U/L Total Protein 4.9 L 5.7-8.2 g/dL Albumin 2.5 L 3.2-4.8 g/dL Urine Creatinine 87.44 30.0-125.0 mg/dL Urine Protein/Creatinine Ratio 0.76 Urine Sodium 21 L 40-220 mmol/L Urine Total Protein 66.7 H 1-14 mg/dL Test 04/21/25 11:26 04/21/25 09:17 04/21/25 03:07 04/20/25 21:23 Range/Units Troponin I High Sensitivity 44297 *H </=34 ng/L Phosphorus Level 9.8 H 2.4-5.1 mg/dL Vitamin D 25-Hydroxy 27.2 L 30.0-100 ng/mL Parathyroid Hormone (Intact) 771.6 H 18.4-80.1 pg/mL Hepatitis B Surface Antigen Negative Negative Hepatitis C Antibody Negative Negative Eosinophils (%) (Auto) 0.2 0.0-7.0 % Eosinophils # (Auto) 0 0-0.8 10 ^3/uL Basophils # (Auto) 0.1 0-0.2 10 ^3/uL B-Type Natriuretic Peptide 93.69 0-100 pg/mL Random Vancomycin Level 17.0 H 5-10 ug/mL Prothrombin Time 11.9 H 9.3-11.8 sec Prothrombin Time INR 1.14 0.9-1.15 Activated Partial Thromboplast Time 55.6 H 24.5-34.5 SEC Test 04/20/25 09:38 04/19/25 14:55 04/19/25 12:32 04/19/25 11:50 Range/Units D-Dimer, Quantitative 24.88 H 0.0-0.49 mg/L FEU Lactic Acid Level 3.0 *H 0.4-2.0 mmol/L Blood Gas Spontaneous Rate 22 Hemoglobin A1c 13.3 H <5.7 % A1C Test 04/19/25 11:15 Range/Units Urine Color Colorless Yellow Urine Clarity Clear Clear Urine pH 6.5 5.0-9.0 Urine Specific [place] 1.010 1.001-1.035 Urine Protein 1+ H Negative Urine Ketones Trace Negative Urine Blood 2+ H Negative /uL Urine Nitrite Negative Negative Urine Bilirubin Negative Negative Urine Urobilinogen Normal Negative mg/dL Urine Leukocyte Esterase Negative Negative /uL Urine RBC 1 0 - 4 /hpf Urine Microscopic WBC 9 H 0-5 /HPF Urine Squamous Epithelial Cells None seen <5 /hpf Urine Bacteria Few H None Seen /hpf Urine Glucose 4+ H Normal mg/dL Microbiology Date/Time Source Procedure Growth Status 04/19/25 22:35 Nose MRSA Screen - Final Complete 04/19/25 11:50 Blood Blood Culture - Preliminary NO GROWTH AFTER 48 HOURS OF INCUBATION. Resulted 04/19/25 11:47 Sputum Gram Stain - Final Resulted 04/19/25 11:47 Sputum Respiratory Culture - Preliminary Resulted 04/19/25 11:15 Voided Urine Urine Culture - Final Escherichia coli Complete Assessment Come Diffuse bilateral hemispheres edema Intracerebral hemorrhage Intraventricular hemorrhage Metabolic encephalopathy Hypoxic encephalopathy Metabolic acidosis Acute respiratory failure Heart attack AFib Reports dementia Plan/Recommendation Monitoring Supportive treatment ICU care Respiratory support/vent management Stabilize vitals EEG Follow-up labs More recommendation per clinical course The patient is likely to have a poor meaningful recovery, I have discussed with her Prognosis: Guarded This medical document was created using an electronic medical record system with [employer]AND[employer] dictation system. Although this document has been carefully reviewed, there may still be some phonetic and typographical errors. These areas are purely typographical due to imperfections of the software programs, and do not reflect any compromise in the patient's medical care. Plan discussed with: Spouse SEEMA MCDOWELL MD Apr 22, 2025 11:03
--- NOTE | 2025-04-22 11:20 | DVHPN2 ---
Progress Note Date Seen: Apr 22, 2025 Medical Necessity Reason Pt with a Central, PICC or Fol: No The following are medically ne: Central Line Subjective Review of Systems: RESPIRATORY:Abnormal Other Systems: Patient seen and examined by myself today in follow-up, patient remained intubated on ventilator Objective vital signs Vital Sign Date Time Temp Pulse Resp B/P (MAP) Pulse Ox O2 Delivery O2 Flow Rate FiO2 04/22/25 10:03 75 31 104/39 (60) 99 45 04/22/25 08:00 Mechanical Ventilator+ 04/22/25 06:45 98.8 209.8 Total Intake and Output 04/21/25 04/21/25 04/22/25 15:00 23:00 07:00 Intake Total 1134.179 ml 463.289 ml 367.426 ml Output Total 100 ml 25 ml Balance 1134.179 ml 363.289 ml 342.426 ml medications Current Medications Medications Dose Ordered Sig/Jorden Route Start Time Stop Time Status Last Admin Dose Admin Norepinephrine Bitartrate 250 ml @ 3.75 mls/hr Q24H IV 04/19/25 11:15 04/21/25 18:32 3.75 MLS/HR Ondansetron HCl 4 mg Q4HP PRN IV 04/19/25 11:30 Acetaminophen 650 mg Q6HP PRN PO 04/19/25 11:30 Nitroglycerin 0.4 mg Q5MINP PRN SL 04/19/25 11:30 Morphine Sulfate 2 mg Q30M PRN IV 04/19/25 11:30 Carvedilol 6.25 mg Q12HR PO 04/19/25 22:00 Hold Ergocalciferol 50,000 unit Q7D PO 04/19/25 11:45 Atorvastatin Calcium 40 mg HS PO 04/19/25 22:00 04/21/25 21:37 40 MG Diagnostic Test (Pha) 1 strip Q6HR 04/19/25 12:00 04/22/25 05:06 1 STRIP Insulin Human Regular Q6HR SC 04/19/25 12:00 04/22/25 05:07 2 UNITS Dextrose 50 ml UD PRN IV 04/19/25 12:00 Phenylephrine HCl 250 ml @ 30 mls/hr Q8H20M IV 04/19/25 12:30 04/21/25 15:21 30 MLS/HR Aspirin 81 mg DAILY PO 04/20/25 10:00 04/20/25 10:12 81 MG Heparin Sodium/ Dextrose 250 ml @ 7.08 mls/hr Q24H IV 04/19/25 18:15 UNV Levofloxacin/ Dextrose 100 ml @ 100 mls/hr Q48H IV 04/21/25 08:30 Cancel Ampicillin Sodium/ Sulbactam Sodium 3 gm/Sodium Chloride 100 ml @ 100 mls/hr Q12H IV 04/21/25 09:30 04/22/25 09:51 100 MLS/HR Amiodarone HCl 400 mg DAILY PO 04/22/25 10:00 Sodium Bicarbonate 150 ml/Dextrose 1,150 ml @ 100 mls/hr [id number] IV 04/22/25 09:15 Dopamine HCl/ Dextrose 250 ml @ 3.57 mls/hr Q24H IV 04/22/25 09:15 04/22/25 09:55 3.57 MLS/HR Calcium Acetate 2,001 mg TID NG 04/22/25 14:00 Examination: LUNGS:Normal, CVS:Normal, MSK:Normal laboratory and microbiology Laboratory Tests 04/22/25 02:54 Test 04/22/25 02:54 Range/Units Serum Glucose 165 H 74-106 mg/dL Microbiology Date/Time Source Procedure Growth Status 04/19/25 22:35 Nose MRSA Screen - Final Complete 04/19/25 11:50 Blood Blood Culture - Preliminary NO GROWTH AFTER 48 HOURS OF INCUBATION. 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 Acute respiratory failure, intubated on ventilator Status post syncope Cerebral hemorrhage Septic shock Metabolic acidosis Urosepsis Congestive heart failure, ejection fraction 45% NSTEMI AFib with RVR Uncontrolled diabetes mellitus Hyperglycemia Hypomagnesemia Recommendations Kidney function continue to worsened Decreased urine output Discontinue vancomycin Gómez catheter Strict I&O kidney ultrasound reported simple cyst IV antibiotics Low-dose dopamine IV bicarb drip IV pressors for blood pressure support Insulin sliding scale Neurology consult Poor prognosis Plan discussed with: Spouse, Other (Nurse) My Orders My Orders Orders - MARK CARTAGENA MD Procedure Category Date Status Time D5w 5% (Dextrose 5%) PHA 04/22/25 In Process W/Sodium Bicarb 50m 09:15 Dopamine 1600mcg/Ml PHA 04/22/25 In Process D5W 09:15 Calcium Acetate PHA 04/22/25 In Process Capsule (Phoslo 14:00 Dietary Evaluation Review Comments: 1) Initiate Pro-Stat @ 30 mL qd 2) Initiate MVI @ 1 tb qd 3) If patient remains NPO > 7 days, consider EN/TPN to meet at least 75% of estimated daily needs 4) If GI route is preferred, consider Glucerna @ 35 mL/hr goal rate as tolerated. TF regimen (including Propofol and Pro-Stat) will provide 1482 kcals, 65g Pro, 676 mL free H2O per 24 hrs. Goal rate meets 100% estimated energy needs and ~70% estimated protein needs 5) Advance to 60g CCHO cardiac diet when medically feasible, pending ST approval 6) Follow-up with cardiology and neurology 7) Continue to monitor I&O, labs, and skin integrity Expected Outcomes/Goals: 1) patient to receive nutrition support within 7 days of NPO status 2) labs and wound to improve 3) diet to advance 4) f/u in 2-3 days MARK CARTAGENA MD Apr 22, 2025 11:20
[2025-04-22] MEDS: SODIUM BICARB 50mEq/50ml Vial 150 ML in D5W 5% 1,000 ML IV SCH (11:39)
--- NOTE | 2025-04-22 12:51 | DVHPN2 ---
Progress Note - Dictate Date Seen: Apr 22, 2025 Medical Necessity Reason Pt with a Central, PICC or Fol: No The following are medically ne: Central Line vital signs Vital Sign Date Time Temp Pulse Resp B/P (MAP) Pulse Ox O2 Delivery O2 Flow Rate FiO2 04/22/25 12:10 86 34 107/27 (53) 100 45 04/22/25 10:00 Mechanical Ventilator+ 04/22/25 06:45 98.8 209.8 Total Intake and Output 04/21/25 04/21/25 04/22/25 15:00 23:00 07:00 Intake Total 1134.179 ml 463.289 ml 367.426 ml Output Total 100 ml 25 ml Balance 1134.179 ml 363.289 ml 342.426 ml medications Current Medications Medications Dose Ordered Sig/Jorden Route Start Time Stop Time Status Last Admin Dose Admin Norepinephrine Bitartrate 250 ml @ 3.75 mls/hr Q24H IV 04/19/25 11:15 04/22/25 11:38 33.75 MLS/HR Ondansetron HCl 4 mg Q4HP PRN IV 04/19/25 11:30 Acetaminophen 650 mg Q6HP PRN PO 04/19/25 11:30 Nitroglycerin 0.4 mg Q5MINP PRN SL 04/19/25 11:30 Morphine Sulfate 2 mg Q30M PRN IV 04/19/25 11:30 Carvedilol 6.25 mg Q12HR PO 04/19/25 22:00 Hold Ergocalciferol 50,000 unit Q7D PO 04/19/25 11:45 Atorvastatin Calcium 40 mg HS PO 04/19/25 22:00 04/21/25 21:37 40 MG Diagnostic Test (Pha) 1 strip Q6HR 04/19/25 12:00 04/22/25 12:06 1 STRIP Insulin Human Regular Q6HR SC 04/19/25 12:00 04/22/25 05:07 2 UNITS Dextrose 50 ml UD PRN IV 04/19/25 12:00 Phenylephrine HCl 250 ml @ 30 mls/hr Q8H20M IV 04/19/25 12:30 04/21/25 15:21 30 MLS/HR Aspirin 81 mg DAILY PO 04/20/25 10:00 04/20/25 10:12 81 MG Heparin Sodium/ Dextrose 250 ml @ 7.08 mls/hr Q24H IV 04/19/25 18:15 UNV Levofloxacin/ Dextrose 100 ml @ 100 mls/hr Q48H IV 04/21/25 08:30 Cancel Ampicillin Sodium/ Sulbactam Sodium 3 gm/Sodium Chloride 100 ml @ 100 mls/hr Q12H IV 04/21/25 09:30 04/22/25 09:51 100 MLS/HR Amiodarone HCl 400 mg DAILY PO 04/22/25 10:00 Sodium Bicarbonate 150 ml/Dextrose 1,150 ml @ 100 mls/hr [id number] IV 04/22/25 09:15 04/22/25 11:39 100 MLS/HR Dopamine HCl/ Dextrose 250 ml @ 3.57 mls/hr Q24H IV 04/22/25 09:15 04/22/25 09:55 3.57 MLS/HR Calcium Acetate 2,001 mg TID NG 04/22/25 14:00 Dopamine HCl/ Dextrose 250 ml @ 3.57 mls/hr Q24H IV 04/22/25 11:30 UNV laboratory and microbiology Laboratory Tests 04/22/25 02:54 Test 04/22/25 02:54 Range/Units Serum Glucose 165 H 74-106 mg/dL Assessment/Plan Impression Acute hypoxemic respiratory failure Altered mental status Elevated troponin NSTEMI Patient seen and examined in ICU Events On mechanical ventilation S/p intubation PEEP 5, FiO2 45% Patient declining More acidotic on ABG pH 7.18, pCO2 29, pO2 94 On bicarb drip Labs and imaging reviewed CT of the brain was obtained, report reviewed Loss of mendoza-white differentiation throughout the entire cerebrum is suspicious for diffuse cerebral edema. There are acute blood products in the right periventricular region which measures approximately 4 x 3.1 cm. There is prominent leftward midline shift of approximately 7 mm Management Vent support Titrate to maintain sats 90% or above Sedation for vent synchrony Continue antibiotics F/u cultures Bronchodilators Monitor renal function Monitor electrolytes Supplement as needed Pressors as needed for hemodynamic support To maintain a mean arterial pressure of 65 mmHg F/u cardiology Continue bicarb drip Prognosis very poor Family contemplating comfort measures DVT prophylaxis Critical care time 35 minutes Dietary Evaluation Review Comments: 1) Initiate Pro-Stat @ 30 mL qd 2) Initiate MVI @ 1 tb qd 3) If patient remains NPO > 7 days, consider EN/TPN to meet at least 75% of estimated daily needs 4) If GI route is preferred, consider Glucerna @ 35 mL/hr goal rate as tolerated. TF regimen (including Propofol and Pro-Stat) will provide 1482 kcals, 65g Pro, 676 mL free H2O per 24 hrs. Goal rate meets 100% estimated energy needs and ~70% estimated protein needs 5) Advance to 60g CCHO cardiac diet when medically feasible, pending ST approval 6) Follow-up with cardiology and neurology 7) Continue to monitor I&O, labs, and skin integrity Expected Outcomes/Goals: 1) patient to receive nutrition support within 7 days of NPO status 2) labs and wound to improve 3) diet to advance 4) f/u in 2-3 days Plan discussed with: Other (Rn) ILDA PARIKH MD Apr 22, 2025 12:51
--- NOTE | 2025-04-22 13:53 | DVHPN2 ---
Progress Note - Dictate Date Seen: Apr 22, 2025 Medical Necessity Reason Pt with a Central, PICC or Fol: No The following are medically ne: Central Line Subjective PT WITH 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% CARDIAC ARREST/ RESP FAILURE SYNCOPE/ VASCULAR COLLAPSE INTUBATED CAD HX OF PTCA STENT AFIB HYPERCOAGULABLE STATE HTN NSTEMI ECHO ANTERIOR APICAL HYPOKINESIS LUNG MASS NON MALIGNANT METABOLIC ENCEPHALOPATHY DEMENTIA DIABETES VASCULOPATHY NEPHROPATHY NEUROPATHY RESP FAILURE METABOLIC ACIDOSIS LEUKOCYTOSIS LUNG INFILTRATE PNA vital signs Vital Sign Date Time Temp Pulse Resp B/P (MAP) Pulse Ox O2 Delivery O2 Flow Rate FiO2 04/22/25 12:10 86 34 107/27 (53) 100 45 04/22/25 10:00 Mechanical Ventilator+ 04/22/25 06:45 98.8 209.8 Total Intake and Output 04/21/25 04/21/25 04/22/25 14:59 22:59 06:59 Intake Total 1107.399 ml 588.291 ml 381.814 ml Output Total 100 ml 25 ml Balance 1107.399 ml 488.291 ml 356.814 ml medications Current Medications Medications Dose Ordered Sig/Jorden Route Start Time Stop Time Status Last Admin Dose Admin Norepinephrine Bitartrate 250 ml @ 3.75 mls/hr Q24H IV 04/19/25 11:15 04/22/25 11:38 33.75 MLS/HR Ondansetron HCl 4 mg Q4HP PRN IV 04/19/25 11:30 Acetaminophen 650 mg Q6HP PRN PO 04/19/25 11:30 Nitroglycerin 0.4 mg Q5MINP PRN SL 04/19/25 11:30 Morphine Sulfate 2 mg Q30M PRN IV 04/19/25 11:30 Carvedilol 6.25 mg Q12HR PO 04/19/25 22:00 Hold Ergocalciferol 50,000 unit Q7D PO 04/19/25 11:45 Atorvastatin Calcium 40 mg HS PO 04/19/25 22:00 04/21/25 21:37 40 MG Diagnostic Test (Pha) 1 strip Q6HR 04/19/25 12:00 04/22/25 12:06 1 STRIP Insulin Human Regular Q6HR SC 04/19/25 12:00 04/22/25 05:07 2 UNITS Dextrose 50 ml UD PRN IV 04/19/25 12:00 Phenylephrine HCl 250 ml @ 30 mls/hr Q8H20M IV 04/19/25 12:30 04/21/25 15:21 30 MLS/HR Aspirin 81 mg DAILY PO 04/20/25 10:00 04/20/25 10:12 81 MG Heparin Sodium/ Dextrose 250 ml @ 7.08 mls/hr Q24H IV 04/19/25 18:15 UNV Levofloxacin/ Dextrose 100 ml @ 100 mls/hr Q48H IV 04/21/25 08:30 Cancel Ampicillin Sodium/ Sulbactam Sodium 3 gm/Sodium Chloride 100 ml @ 100 mls/hr Q12H IV 04/21/25 09:30 04/22/25 09:51 100 MLS/HR Amiodarone HCl 400 mg DAILY PO 04/22/25 10:00 Sodium Bicarbonate 150 ml/Dextrose 1,150 ml @ 100 mls/hr [id number] IV 04/22/25 09:15 04/22/25 11:39 100 MLS/HR Calcium Acetate 2,001 mg TID NG 04/22/25 14:00 Dopamine HCl/ Dextrose 250 ml @ 3.57 mls/hr Q24H IV 04/22/25 11:30 laboratory and microbiology Laboratory Tests 04/22/25 02:54 Test 04/22/25 02:54 Range/Units Serum Glucose 165 H 74-106 mg/dL Problem List 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% CARDIAC ARREST/ RESP FAILURE SYNCOPE/ VASCULAR COLLAPSE INTUBATED CAD HX OF PTCA STENT AFIB HYPERCOAGULABLE STATE HTN NSTEMI ECHO ANTERIOR APICAL HYPOKINESIS MARKED ELEVATION IN TROPONIN LUNG MASS NON MALIGNANT METABOLIC ENCEPHALOPATHY DEMENTIA DIABETES VASCULOPATHY NEPHROPATHY ACUTE RENAL FAILURE NEUROPATHY RESP FAILURE METABOLIC ACIDOSIS LEUKOCYTOSIS LUNG INFILTRATE PNA ELEVATED LIVER ENZYMES CONSISTENT WITH SHOCK SYNDROME SUBARACHNOID BLEED WITH EDEMA AND SHIFT 1.Loss of mendoza-white differentiation throughout the entire cerebrum is suspicious for diffuse cerebral edema. 2.There are acute blood products in the right periventricular region which measures approximately 4 x 3.1 cm. 3.There is prominent leftward midline shift of approximately 7 mm 4.Consider brain MRI for further characterization. 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 TF regimen (including Propofol and Pro-Stat) will provide 1482 kcals, 65g Pro, 676 mL free H2O per 24 hrs. Goal rate meets 100% estimated energy needs and ~70% estimated protein needs 5) Advance to 60g CCHO cardiac diet when medically feasible, pending ST approval 6) Follow-up with cardiology and neurology 7) Continue to monitor I&O, labs, and skin integrity Expected Outcomes/Goals: 1) patient to receive nutrition support within 7 days of NPO status 2) labs and wound to improve 3) diet to advance 4) f/u in 2-3 days Plan discussed with: Spouse Critical Care Time(min): 35 FIOR WALTER MD Apr 22, 2025 13:53
[2025-04-22] MEDS: AMIODARONE HCL 200 MG TAB PO SCH (13:56)
[2025-04-22] MEDS: CALCIUM ACETATE 667 MG CAP NG SCH (16:04)
[2025-04-23] VITALS (60 sets, daily range): BP systolic 55–144; BP diastolic 20–115; PULSE 34–116; RESP 14–29; TEMP 67.1–98.4; O2SAT 22–100
[2025-04-23] MEDS: VASOPRESSIN 20 UNITS in SODIUM CHL 0.9% 99 ML IV SCH (00:01)
[2025-04-23 00:23] LABS: Base Excess -20.6 mmol/L (-2.0-3.0)
[2025-04-23] MEDS: DEXTROSE (50%) 50ML SYRG IV PRN (00:39)
[2025-04-23] MEDS: SODIUM BICARB 8.4% 50Meq/50ml SYR Vial IV ONE ×4 (01:16→12:15)
[2025-04-23] MEDS: SODIUM BICARB 50mEq/50ml Vial 150 ML in D5W 5% 1,000 ML IV SCH (01:17)
[2025-04-23 03:59] LABS: Hematocrit 29.2 % (36.0-46.0); Hemoglobin 9.2 g/dL (12.2-16.2); Mean Corpuscular Hemoglobin 31.4 pg (28.0-32.0); Mean Corpuscular Hgb Conc. 31.4 g/dL (32.0-36.0); Mean Corpuscular Volume 100.1 fL (80.0-100.0); Platelet Count (auto) 72 10^3/uL (140-450); Red Blood Cells 2.92 10^6/uL (4.0-5.20); Red Cell Distribution Width 15.4 % (11.8-14.3); White Blood Cell 14.9 10^3/uL (4.4-10.8)
[2025-04-23 04:01] LABS: Basophils % (manual) 0 (0.0-2.0); Eosinophils % (manual) 0 (0-7); Reactive Lymphocytes 0
--- NOTE | 2025-04-23 05:11 | DVH ---
CHEST RADIOGRAPH Indication: chf, pna Technique: Single frontal view of the chest was obtained COMPARISON: XY CHEST PORTABLE on DOS: 04/22/25, XY CHEST PORTABLE on DOS: 04/21/25, XY CHEST PORTABLE o n DOS: 04/20/25, XY CHEST PORTABLE on DOS: 04/19/25, XY CHEST PORTABLE on DOS: 04/19/25 FINDINGS: Lines and Tubes: Endotracheal tube and enteric catheter in satisfactory position. Lungs: Right upper lobe consolidation. Multifocal airspace disease. Pleura: No effusion. No pneumothorax. Cardiomediastinal contours: Unremarkable Bones: Unremarkable IMPRESSION: Lines and tubes in satisfactory position. No significant interval change.
[2025-04-23 05:17] LABS: Band Neutrophils % (manual) 10; Blast Cells 5; Lymphocytes % (manual) 15 (10.0-50.0); Metamyelocytes % 2; Monocytes % (manual) 2 (0-12); Myelocytes % 1; Promyelocytes % 2
[2025-04-23 05:18] LABS: Platelet Estimate Decreased
[2025-04-23] MEDS: EPINEPHrine HCL 250 ML IV SCH (06:56)
[2025-04-23] MEDS: SODIUM BICARB 8.4% 50Meq/50ml SYR INJ ONE ×2 (08:07→12:00)
--- NOTE | 2025-04-23 09:02 | DVHPN2 ---
Progress Note - Dictate Date Seen: Apr 23, 2025 Medical Necessity Reason Pt with a Central, PICC or Fol: No The following are medically ne: Central Line Subjective PT WITH 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% CARDIAC ARREST/ RESP FAILURE SYNCOPE/ VASCULAR COLLAPSE INTUBATED CAD HX OF PTCA STENT AFIB HYPERCOAGULABLE STATE HTN NSTEMI ECHO ANTERIOR APICAL HYPOKINESIS LUNG MASS NON MALIGNANT METABOLIC ENCEPHALOPATHY DEMENTIA DIABETES VASCULOPATHY NEPHROPATHY NEUROPATHY RESP FAILURE METABOLIC ACIDOSIS LEUKOCYTOSIS LUNG INFILTRATE PNA vital signs Vital Sign Date Time Temp Pulse Resp B/P (MAP) Pulse Ox O2 Delivery O2 Flow Rate FiO2 04/23/25 08:49 72/32 04/23/25 07:11 78 26 50 04/23/25 06:45 96.6 96.6 04/23/25 06:00 98 Mechanical Ventilator+ Total Intake and Output 04/22/25 04/22/25 04/23/25 15:00 23:00 07:00 Intake Total 806.65 ml 1991.42 ml 2965.053 ml Output Total 30 ml 5 ml Balance 806.65 ml 1961.42 ml 2960.053 ml medications Current Medications Medications Dose Ordered Sig/Jorden Route Start Time Stop Time Status Last Admin Dose Admin Norepinephrine Bitartrate 250 ml @ 3.75 mls/hr Q24H IV 04/19/25 11:15 04/23/25 05:34 56.25 MLS/HR Ondansetron HCl 4 mg Q4HP PRN IV 04/19/25 11:30 Acetaminophen 650 mg Q6HP PRN PO 04/19/25 11:30 Nitroglycerin 0.4 mg Q5MINP PRN SL 04/19/25 11:30 Morphine Sulfate 2 mg Q30M PRN IV 04/19/25 11:30 Carvedilol 6.25 mg Q12HR PO 04/19/25 22:00 Hold Ergocalciferol 50,000 unit Q7D PO 04/19/25 11:45 Atorvastatin Calcium 40 mg HS PO 04/19/25 22:00 04/22/25 21:16 40 MG Diagnostic Test (Pha) 1 strip Q6HR 04/19/25 12:00 04/23/25 05:27 1 STRIP Insulin Human Regular Q6HR SC 04/19/25 12:00 04/23/25 05:27 3 UNITS Dextrose 50 ml UD PRN IV 04/19/25 12:00 04/23/25 00:39 50 ML Phenylephrine HCl 250 ml @ 30 mls/hr Q8H20M IV 04/19/25 12:30 04/23/25 08:49 135 MLS/HR Aspirin 81 mg DAILY PO 04/20/25 10:00 04/20/25 10:12 81 MG Heparin Sodium/ Dextrose 250 ml @ 7.08 mls/hr Q24H IV 04/19/25 18:15 UNV Levofloxacin/ Dextrose 100 ml @ 100 mls/hr Q48H IV 04/21/25 08:30 Cancel Amiodarone HCl 400 mg DAILY PO 04/22/25 10:00 04/22/25 13:56 400 MG Calcium Acetate 2,001 mg TID NG 04/22/25 14:00 04/23/25 05:28 2,001 MG Ampicillin Sodium/ Sulbactam Sodium 3 gm/Sodium Chloride 100 ml @ 100 mls/hr DAILY IV 04/23/25 10:00 Dopamine HCl/ Dextrose 250 ml @ 8.925 mls/ hr Q24H IV 04/22/25 20:15 04/23/25 08:34 35.7 MLS/HR Epinephrine HCl 250 ml @ 7.5 mls/hr Q24H IV 04/22/25 20:15 04/23/25 06:56 7.5 MLS/HR Vasopressin 20 units/Sodium Chloride 100 ml @ 9 mls/hr Q11H7M IV 04/22/25 20:15 04/23/25 05:35 9 MLS/HR Sodium Bicarbonate 150 ml/Dextrose 1,150 ml @ 125 mls/hr Q9H12M IV 04/23/25 01:00 04/23/25 08:06 125 MLS/HR laboratory and microbiology Laboratory Tests 04/23/25 02:42 Test 04/23/25 04:00 Range/Units Serum Glucose Pending Problem List 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% CARDIAC ARREST/ RESP FAILURE SYNCOPE/ VASCULAR COLLAPSE INTUBATED CAD HX OF PTCA STENT AFIB HYPERCOAGULABLE STATE HTN NSTEMI ECHO ANTERIOR APICAL HYPOKINESIS MARKED ELEVATION IN TROPONIN LUNG MASS NON MALIGNANT METABOLIC ENCEPHALOPATHY DEMENTIA DIABETES VASCULOPATHY NEPHROPATHY ACUTE RENAL FAILURE NEUROPATHY RESP FAILURE METABOLIC ACIDOSIS LEUKOCYTOSIS LUNG INFILTRATE PNA ELEVATED LIVER ENZYMES CONSISTENT WITH SHOCK SYNDROME SUBARACHNOID BLEED WITH EDEMA AND SHIFT 1.Loss of mendoza-white differentiation throughout the entire cerebrum is suspicious for diffuse cerebral edema. 2.There are acute blood products in the right periventricular region which measures approximately 4 x 3.1 cm. 3.There is prominent leftward midline shift of approximately 7 mm 4.Consider brain MRI for further characterization. 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 TF regimen (including Propofol and Pro-Stat) will provide 1482 kcals, 65g Pro, 676 mL free H2O per 24 hrs. Goal rate meets 100% estimated energy needs and ~70% estimated protein needs 5) Advance to 60g CCHO cardiac diet when medically feasible, pending ST approval 6) Follow-up with cardiology and neurology 7) Continue to monitor I&O, labs, and skin integrity Expected Outcomes/Goals: 1) patient to receive nutrition support within 7 days of NPO status 2) labs and wound to improve 3) diet to advance 4) f/u in 2-3 days Plan discussed with: Patient Critical Care Time(min): 35 FIOR WALTER MD Apr 23, 2025 09:02
--- NOTE | 2025-04-23 09:04 | DVHPN2 ---
Progress Note - Dictate Date Seen: Apr 23, 2025 Medical Necessity Reason Pt with a Central, PICC or Fol: No The following are medically ne: Central Line Subjective Ms. Haskins is a 79 years old female with a history of hypertension, diabetes, dyslipidemia, congestive heart failure, AFib, COPD, pulmonary nodule, the patient was brought to the hospital. The patient was brought to the hospital for altered mental status. I have seen and examined the patient, I have talked to her nurse, her [id number] in the room According to her [id number], the gentleman talked to yesterday was not her , but boyfriend, the patient has a pointed a family member as her [id number] She is not doing well, her vitals are unstable, she has company nonresponsive, pupils are unequal and nonreactive, this no brainstem reflexes I have discussed the patient critical condition with her [id number] Urinalysis, 04/19/2025: WBC: 9, urine leukocyte esterase: Negative ABG, 04/22/2025: Metabolic acidosis WBC/HB/PLT/MCV, 04/22/2025: 23.9/12.3/80/91.1 PT/INR/PTT, 04/20/2025: 11/9/1.14/55.6 BUN/CR, 04/22/2025: 58/3.28 TBI/AST/ALT/AP, 04/22/2025: 0.6/431/324/80 Troponin one high sensitivity, 04/19/2025: To 96, 2295, 04/20/2025: [address], 04/21/2025: 31673 CT head, 04/19/2025: CT brain, 04/22/2025: 1.Loss of mendoza-white differentiation throughout the entire cerebrum is suspicious for diffuse cerebral edema. 2.There are acute blood products in the right periventricular region which measures approximately 4 x 3.1 cm. 3.There is prominent leftward midline shift of approximately 7 mm 4. Consider brain MRI for further characterization. vital signs Vital Sign Date Time Temp Pulse Resp B/P (MAP) Pulse Ox O2 Delivery O2 Flow Rate FiO2 04/23/25 08:49 72/32 04/23/25 07:11 78 26 50 04/23/25 06:45 96.6 96.6 04/23/25 06:00 98 Mechanical Ventilator+ Total Intake and Output 04/22/25 04/22/25 04/23/25 15:00 23:00 07:00 Intake Total 806.65 ml 1991.42 ml 2965.053 ml Output Total 30 ml 5 ml Balance 806.65 ml 1961.42 ml 2960.053 ml medications Current Medications Medications Dose Ordered Sig/Jorden Route Start Time Stop Time Status Last Admin Dose Admin Norepinephrine Bitartrate 250 ml @ 3.75 mls/hr Q24H IV 04/19/25 11:15 04/23/25 05:34 56.25 MLS/HR Ondansetron HCl 4 mg Q4HP PRN IV 04/19/25 11:30 Acetaminophen 650 mg Q6HP PRN PO 04/19/25 11:30 Nitroglycerin 0.4 mg Q5MINP PRN SL 04/19/25 11:30 Morphine Sulfate 2 mg Q30M PRN IV 04/19/25 11:30 Carvedilol 6.25 mg Q12HR PO 04/19/25 22:00 Hold Ergocalciferol 50,000 unit Q7D PO 04/19/25 11:45 Atorvastatin Calcium 40 mg HS PO 04/19/25 22:00 04/22/25 21:16 40 MG Diagnostic Test (Pha) 1 strip Q6HR 04/19/25 12:00 04/23/25 05:27 1 STRIP Insulin Human Regular Q6HR SC 04/19/25 12:00 04/23/25 05:27 3 UNITS Dextrose 50 ml UD PRN IV 04/19/25 12:00 04/23/25 00:39 50 ML Phenylephrine HCl 250 ml @ 30 mls/hr Q8H20M IV 04/19/25 12:30 04/23/25 08:49 135 MLS/HR Aspirin 81 mg DAILY PO 04/20/25 10:00 04/20/25 10:12 81 MG Heparin Sodium/ Dextrose 250 ml @ 7.08 mls/hr Q24H IV 04/19/25 18:15 UNV Levofloxacin/ Dextrose 100 ml @ 100 mls/hr Q48H IV 04/21/25 08:30 Cancel Amiodarone HCl 400 mg DAILY PO 04/22/25 10:00 04/22/25 13:56 400 MG Calcium Acetate 2,001 mg TID NG 04/22/25 14:00 04/23/25 05:28 2,001 MG Ampicillin Sodium/ Sulbactam Sodium 3 gm/Sodium Chloride 100 ml @ 100 mls/hr DAILY IV 04/23/25 10:00 Dopamine HCl/ Dextrose 250 ml @ 8.925 mls/ hr Q24H IV 04/22/25 20:15 04/23/25 08:34 35.7 MLS/HR Epinephrine HCl 250 ml @ 7.5 mls/hr Q24H IV 04/22/25 20:15 04/23/25 06:56 7.5 MLS/HR Vasopressin 20 units/Sodium Chloride 100 ml @ 9 mls/hr Q11H7M IV 04/22/25 20:15 04/23/25 05:35 9 MLS/HR Sodium Bicarbonate 150 ml/Dextrose 1,150 ml @ 125 mls/hr Q9H12M IV 04/23/25 01:00 04/23/25 08:06 125 MLS/HR objective The patient is well-nourished and well-developed with no distress. The patient is intubated MENTAL STATUS: Not responsive to the surroundings, CRANIAL NERVES: Pupils are round and nonreactive, Rt: 4mm, Lt: 1-2 mm. There are no corneal reflexes and doll's eyes phenomenon. No signs of facial weakness. There are gagging or coughing reflexes SENSATION: No responses to pain stimuli. MOTOR: Normal tone in the upper and lower extremity. Normal muscle bulk. No fasciculations. No spontaneous movement. REFLEXES: Deep tendon reflexes are symmetrical. No pathological reflexes. CEREBELLAR/COORDINATION: Deferred GAIT/STATION: deferred. laboratory and microbiology Laboratory Tests 04/23/25 02:42 Test 04/23/25 04:00 Range/Units Serum Glucose Pending Problem List Come Diffuse bilateral hemispheres edema Intracerebral hemorrhage Intraventricular hemorrhage Metabolic encephalopathy Hypoxic encephalopathy Metabolic acidosis Acute respiratory failure Heart attack AFib Reports dementia Assessment/Plan Monitoring Supportive treatment ICU care Respiratory support/vent management Stabilize vitals EEG Follow-up labs More recommendation per clinical course The patient is likely to have a poor meaningful recovery, This medical document was created using an electronic medical record system with 27 bards dictation system. Although this document has been carefully reviewed, there may still be some phonetic and typographical errors. These areas are purely typographical due to imperfections of the software programs, and do not reflect any compromise in the patient's medical care. Prognosis guarded Dietary Evaluation Review Comments: 1) Initiate Pro-Stat @ 30 mL qd 2) Initiate MVI @ 1 tb qd 3) If patient remains NPO > 7 days, consider EN/TPN to meet at least 75% of estimated daily needs 4) If GI route is preferred, consider Glucerna @ 35 mL/hr goal rate as tolerated. TF regimen (including Propofol and Pro-Stat) will provide 1482 kcals, 65g Pro, 676 mL free H2O per 24 hrs. Goal rate meets 100% estimated energy needs and ~70% estimated protein needs 5) Advance to 60g CCHO cardiac diet when medically feasible, pending ST approval 6) Follow-up with cardiology and neurology 7) Continue to monitor I&O, labs, and skin integrity Expected Outcomes/Goals: 1) patient to receive nutrition support within 7 days of NPO status 2) labs and wound to improve 3) diet to advance 4) f/u in 2-3 days Plan discussed with: Daughter, Other Critical Care Time(min): 35 SEEMA MCDOWELL MD Apr 23, 2025 09:04
[2025-04-23] MEDS: AMPICILLIN & SULBACTAM SODIUM 3 GM in SODIUM CHL 0.9% 100 ML IV SCH (09:11)
[2025-04-23 09:43] LABS: Anion Gap 38.00001 (5-15); BUN/Creatinine Ratio 12.3 (10.0-20.0); Sodium 142 mmol/L (136-145)
[2025-04-23 09:44] LABS: Bilirubin, Total 0.8 mg/dL (0.2-1.0)
--- NOTE | 2025-04-23 09:53 | DVHPN2 ---
Subjective Non-responsive Reviewed: Care Plan, H&P, Labs, Medications Changes from previous H/P or p: No Changes General: Per HPI Objective Vitals Vital Signs Date Time Temp Pulse Resp B/P (MAP) Pulse Ox O2 Delivery O2 Flow Rate FiO2 04/23/25 08:49 72/32 04/23/25 08:30 93 26 50 04/23/25 06:45 96.6 96.6 04/23/25 06:00 98 Mechanical Ventilator+ Intake/Output Intake and Output 04/23/25 06:59 Intake Total 5427.403 ml Output Total 35 ml Balance 5392.403 ml Intake Oral 240 ml IV Total 5187.403 ml Output Urine Total 35 ml General Appearance: severe distress, Other (non responsive) HEENT: Other (Poor dentition) Lungs: Other (Rhonchi right upper lobe. Mechanical ventilation) Chest/Breasts: Other (Ecchymosis to chest) Cardiovascular: Normal S1, Normal S2, Other (Atrial fibrillation) Genitourinary: No Apparent Abnormalities (Gómez catheter) Skin: Dry, Intact Psych/Mental Status: Other (Unable to assess) Medications Current Medications Medications Dose Ordered Sig/Jorden Route Start Time Stop Time Status Last Admin Dose Admin Norepinephrine Bitartrate 250 ml @ 3.75 mls/hr Q24H IV 04/19/25 11:15 04/23/25 05:34 56.25 MLS/HR Ondansetron HCl 4 mg Q4HP PRN IV 04/19/25 11:30 Acetaminophen 650 mg Q6HP PRN PO 04/19/25 11:30 Nitroglycerin 0.4 mg Q5MINP PRN SL 04/19/25 11:30 Morphine Sulfate 2 mg Q30M PRN IV 04/19/25 11:30 Carvedilol 6.25 mg Q12HR PO 04/19/25 22:00 Hold Ergocalciferol 50,000 unit Q7D PO 04/19/25 11:45 Atorvastatin Calcium 40 mg HS PO 04/19/25 22:00 04/22/25 21:16 40 MG Diagnostic Test (Pha) 1 strip Q6HR 04/19/25 12:00 04/23/25 05:27 1 STRIP Insulin Human Regular Q6HR SC 04/19/25 12:00 04/23/25 05:27 3 UNITS Dextrose 50 ml UD PRN IV 04/19/25 12:00 04/23/25 00:39 50 ML Phenylephrine HCl 250 ml @ 30 mls/hr Q8H20M IV 04/19/25 12:30 04/23/25 08:49 135 MLS/HR Aspirin 81 mg DAILY PO 04/20/25 10:00 04/20/25 10:12 81 MG Heparin Sodium/ Dextrose 250 ml @ 7.08 mls/hr Q24H IV 04/19/25 18:15 UNV Levofloxacin/ Dextrose 100 ml @ 100 mls/hr Q48H IV 04/21/25 08:30 Cancel Amiodarone HCl 400 mg DAILY PO 04/22/25 10:00 04/23/25 09:15 400 MG Calcium Acetate 2,001 mg TID NG 04/22/25 14:00 04/23/25 05:28 2,001 MG Ampicillin Sodium/ Sulbactam Sodium 3 gm/Sodium Chloride 100 ml @ 100 mls/hr DAILY IV 04/23/25 10:00 04/23/25 09:11 100 MLS/HR Dopamine HCl/ Dextrose 250 ml @ 8.925 mls/ hr Q24H IV 04/22/25 20:15 04/23/25 08:34 35.7 MLS/HR Epinephrine HCl 250 ml @ 7.5 mls/hr Q24H IV 04/22/25 20:15 04/23/25 06:56 7.5 MLS/HR Vasopressin 20 units/Sodium Chloride 100 ml @ 9 mls/hr Q11H7M IV 04/22/25 20:15 04/23/25 05:35 9 MLS/HR Sodium Bicarbonate 150 ml/Dextrose 1,150 ml @ 125 mls/hr Q9H12M IV 04/23/25 01:00 04/23/25 08:06 125 MLS/HR Laboratory Results Laboratory Tests 04/23/25 02:42 Chemistry Test 04/23/25 08:59 Albumin Pending Calcium Level Pending Total Protein Pending LFT Test 04/23/25 08:59 Alanine Aminotransferase (ALT) Pending Alkaline Phosphatase Pending Aspartate Amino Transferase (AST) Pending Total Bilirubin Pending Urinalysis Test 04/19/25 11:15 04/21/25 13:40 Urine Color Colorless (Yellow) Urine Clarity Clear (Clear) Urine pH 6.5 (5.0-9.0) Urine Specific [place] 1.010 (1.001-1.035) Urine Protein 1+ (Negative) H Urine Ketones Trace (Negative) Urine Blood 2+ /uL (Negative) H Urine Nitrite Negative (Negative) Urine Bilirubin Negative (Negative) Urine Urobilinogen Normal mg/dL (Negative) Urine Leukocyte Esterase Negative /uL (Negative) Urine RBC 1 /hpf (0 - 4) Urine Microscopic WBC 9 /HPF (0-5) H Urine Squamous Epithelial Cells None seen /hpf (<5) Urine Bacteria Few /hpf (None Seen) H Urine Glucose 4+ mg/dL (Normal) H Urine Creatinine 87.44 mg/dL (30.0-125.0) Urine Protein/Creatinine Ratio 0.76 Urine Sodium 21 mmol/L (40-220) L Urine Total Protein 66.7 mg/dL (1-14) H Blood Gas Results Test 04/23/25 00:15 04/23/25 07:41 Arterial Blood pH 7.025 (7.350-7.450) 6.943 (7.350-7.450) FiO2 % 45.0 45.0 Microbiology Microbiology Date/Time Source Procedure Growth Status 04/19/25 22:35 Nose MRSA Screen - Final Complete 04/19/25 11:50 Blood Blood Culture - Preliminary NO GROWTH AFTER 72 HOURS OF INCUBATION. Resulted 04/19/25 11:47 Sputum Gram Stain - Final Resulted 04/19/25 11:47 Sputum Respiratory Culture - Preliminary Resulted 04/19/25 11:15 Voided Urine Urine Culture - Final Escherichia coli Complete Labs and/or images reviewed: Labs reviewed by me, Image(s) reviewed by me Assessment/Plan Assessment/Plan Impression: -syncope with collapse -metabolic encephalopathy -acute hypoxic respiratory failure -NSTEMI,? Type 1 -probable acute systolic heart failure with ejection fraction 40% -acute kidney injury, vasomotor nephropathy -diabetes mellitus -hypertensive crisis -? Right upper lobe mass -atrial fibrillation with rapid ventricular rate Plan: Events: Patient with catastrophic intracranial findings. Discussed with Granddaughter who is bedside. Discussed with patients significant other yesterday. Discussed codes status. Continue full code at this time. -continue current ventilator settings -check D-dimer, g of the chest if found to be positive. -start gentle IV hydration -regular insulin sliding scale -Unasyn -bronchodilators -antihypertensives as needed -continue aspirin -repeat labs, chest x-ray, ABG in a.m. Critical care time spent with patient discussing and formulating plan of care: 40 minutes. This does not include time spent performing procedures. This medical document was created using an electronic medical record system with [employer] dictation system. Although this document has been carefully reviewed, there may still be some phonetic and typographical errors. These areas are purely typographical due to imperfections of the software programs, and do not reflect any compromise in the patient's medical care. Plan discussed with: Patient, Other (RN) My Orders Orders - MILLICENT BLACKWOOD NP Procedure Category Date Status Time Ampicillin & PHA 04/23/25 In Process Sulbactam Sodium 10:00 Sodium Bicarb PHA 04/23/25 In Process 50meq/50ml Syr 08:22 Date of Service: Apr 23, 2025 Billing Provider: MILLICENT BLACKWOOD NP Common Visit Codes: [id number] CARE 30-74 MIN MILLICENT BLACKWOOD NP Apr 23, 2025 09:53
[2025-04-23 10:00] LABS: Alanine Aminotransferase 477 U/L (7-40); Albumin 1.3 g/dL (3.2-4.8); Alkaline Phosphatase 138 U/L (46-116); Aspartate Aminotransferase 1888 U/L (<34); Blood Urea Nitrogen 56 mg/dL (9-23); Calcium 7.1 mg/dL (8.7-10.4); Chloride 94 mmol/L (98-107); Glucose 233 mg/dL (74-106); Total Protein 2.8 g/dL (5.7-8.2)
[2025-04-23 10:02] LABS: Carbon Dioxide < 10 mmol/L (20-31); Potassium 6.2 mmol/L (3.5-5.1)
[2025-04-23] MEDS: DEXTROSE (50%) 50ML SYRG IV ONE (10:39)
[2025-04-23] MEDS: ALBUTEROL SULF 2.5 MG/0.5ML(0.5%) NEB SOLN NEB ONE (10:48)
[2025-04-23] MEDS: CALCIUM GLUC 1,000mg/50ml-NS 50 ML IV ONE (10:48)
[2025-04-23] MEDS: SODIUM ZIRCONIUM CYCL 10 GM PAK PO ONE (10:56)
[2025-04-23] MEDS: InsuLIN REG 1unit/0.01ml Soln (100units/ml) IV ONE (11:30)
[2025-04-23] MEDS: ATROPINE SULF 1 MG/10ml SYR ONE (11:49)
--- NOTE | 2025-04-23 12:00 | DVHPN2 ---
Progress Note Date Seen: Apr 23, 2025 Medical Necessity Reason Pt with a Central, PICC or Fol: No The following are medically ne: Central Line Subjective Review of Systems: RESPIRATORY:Abnormal Other Systems: Patient seen and examined by myself today in follow-up, patient remained intubated on ventilator Objective vital signs Vital Sign Date Time Temp Pulse Resp B/P (MAP) Pulse Ox O2 Delivery O2 Flow Rate FiO2 04/23/25 10:56 74/31 04/23/25 10:30 76 26 50 04/23/25 06:45 96.6 96.6 04/23/25 06:00 98 Mechanical Ventilator+ Total Intake and Output 04/22/25 04/22/25 04/23/25 15:00 23:00 07:00 Intake Total 806.65 ml 1991.42 ml 2965.053 ml Output Total 30 ml 5 ml Balance 806.65 ml 1961.42 ml 2960.053 ml medications Current Medications Medications Dose Ordered Sig/Jorden Route Start Time Stop Time Status Last Admin Dose Admin Norepinephrine Bitartrate 250 ml @ 3.75 mls/hr Q24H IV 04/19/25 11:15 04/23/25 10:18 56.25 MLS/HR Ondansetron HCl 4 mg Q4HP PRN IV 04/19/25 11:30 Acetaminophen 650 mg Q6HP PRN PO 04/19/25 11:30 Nitroglycerin 0.4 mg Q5MINP PRN SL 04/19/25 11:30 Morphine Sulfate 2 mg Q30M PRN IV 04/19/25 11:30 Carvedilol 6.25 mg Q12HR PO 04/19/25 22:00 Hold Ergocalciferol 50,000 unit Q7D PO 04/19/25 11:45 Atorvastatin Calcium 40 mg HS PO 04/19/25 22:00 04/22/25 21:16 40 MG Diagnostic Test (Pha) 1 strip Q6HR 04/19/25 12:00 04/23/25 11:02 1 STRIP Insulin Human Regular Q6HR SC 04/19/25 12:00 04/23/25 05:27 3 UNITS Dextrose 50 ml UD PRN IV 04/19/25 12:00 04/23/25 00:39 50 ML Phenylephrine HCl 250 ml @ 30 mls/hr Q8H20M IV 04/19/25 12:30 04/23/25 10:56 135 MLS/HR Aspirin 81 mg DAILY PO 04/20/25 10:00 04/20/25 10:12 81 MG Heparin Sodium/ Dextrose 250 ml @ 7.08 mls/hr Q24H IV 04/19/25 18:15 UNV Levofloxacin/ Dextrose 100 ml @ 100 mls/hr Q48H IV 04/21/25 08:30 Cancel Amiodarone HCl 400 mg DAILY PO 04/22/25 10:00 04/22/25 13:56 400 MG Calcium Acetate 2,001 mg TID NG 04/22/25 14:00 04/23/25 05:28 2,001 MG Ampicillin Sodium/ Sulbactam Sodium 3 gm/Sodium Chloride 100 ml @ 100 mls/hr DAILY IV 04/23/25 10:00 04/23/25 09:11 100 MLS/HR Dopamine HCl/ Dextrose 250 ml @ 8.925 mls/ hr Q24H IV 04/22/25 20:15 04/23/25 08:34 35.7 MLS/HR Epinephrine HCl 250 ml @ 7.5 mls/hr Q24H IV 04/22/25 20:15 04/23/25 06:56 7.5 MLS/HR Vasopressin 20 units/Sodium Chloride 100 ml @ 9 mls/hr Q11H7M IV 04/22/25 20:15 04/23/25 05:35 9 MLS/HR Sodium Bicarbonate 150 ml/Dextrose 1,150 ml @ 125 mls/hr Q9H12M IV 04/23/25 01:00 04/23/25 08:06 125 MLS/HR Examination: LUNGS:Normal, CVS:Normal, MSK:Normal laboratory and microbiology Laboratory Tests 04/23/25 08:59 04/23/25 02:42 Test 04/23/25 08:59 Range/Units Serum Glucose 233 H 74-106 mg/dL Microbiology Date/Time Source Procedure Growth Status 04/19/25 22:35 Nose MRSA Screen - Final Complete 04/19/25 11:50 Blood Blood Culture - Preliminary NO GROWTH AFTER 72 HOURS OF INCUBATION. 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 Acute respiratory failure, intubated on ventilator Status post syncope Cerebral hemorrhage Septic shock Hypotension on maximum IV pressors Metabolic acidosis Urosepsis Congestive heart failure, ejection fraction 45% NSTEMI AFib with RVR Uncontrolled diabetes mellitus Hyperglycemia Hypomagnesemia Hyperkalemia Recommendations Kidney function continue to worsened Decreased urine output Discontinue vancomycin Gómez catheter Strict I&O kidney ultrasound reported simple cyst IV antibiotics Low-dose dopamine Emergent medical treatment for hyperkalemia IV bicarb drip IV pressors for blood pressure support Insulin sliding scale Neurology consult Poor prognosis Plan discussed with: Patient Dietary Evaluation Review Comments: 1) Initiate Pro-Stat @ 30 mL qd 2) Initiate MVI @ 1 tb qd 3) If patient remains NPO > 7 days, consider EN/TPN to meet at least 75% of estimated daily needs 4) If GI route is preferred, consider Glucerna @ 35 mL/hr goal rate as tolerated. TF regimen (including Propofol and Pro-Stat) will provide 1482 kcals, 65g Pro, 676 mL free H2O per 24 hrs. Goal rate meets 100% estimated energy needs and ~70% estimated protein needs 5) Advance to 60g CCHO cardiac diet when medically feasible, pending ST approval 6) Follow-up with cardiology and neurology 7) Continue to monitor I&O, labs, and skin integrity Expected Outcomes/Goals: 1) patient to receive nutrition support within 7 days of NPO status 2) labs and wound to improve 3) diet to advance 4) f/u in 2-3 days MARK CARTAGENA MD Apr 23, 2025 12:00
--- NOTE | 2025-04-23 13:31 | CODING ---
Date of Service: Apr 23, 2025 Billing Provider: MILLICENT BLACKWOOD NP Common Visit Codes: PROCEDURE ONLY Procedure Codes: 79806-[id number] CODE MILLICENT HERNANDEZ NP Apr 23, 2025 13:31
--- NOTE | 2025-04-23 13:36 | DVHDS2 ---
Discharge Summary Date of Admission Apr 19, 2025 at 11:25 Date of Discharge: Apr 23, 2025 Admitting Diagnosis Acute respiratory failure Labs/Diagnostic Data: Laboratory Results Test 04/23/25 11:13 04/23/25 08:59 04/23/25 07:41 04/23/25 02:42 POC Glucose 273 mg/dl (70-106) Sodium Level 142 mmol/L (136-145) Potassium Level 6.2 mmol/L (3.5-5.1) Chloride Level 94 mmol/L (98-107) Carbon Dioxide Level < 10 mmol/L (20-31) Anion Gap 38.63544 (5-15) Blood Urea Nitrogen 56 mg/dL (9-23) Creatinine 4.56 mg/dL (0.550-1.02) Glomerular Filtration Rate Calc 9 mL/min (>90) BUN/Creatinine Ratio 12.3 (10.0-20.0) Serum Glucose 233 mg/dL (74-106) Calcium Level 7.1 mg/dL (8.7-10.4) Total Bilirubin 0.8 mg/dL (0.2-1.0) Aspartate Amino Transferase (AST) 1888 U/L (<34) Alanine Aminotransferase (ALT) 477 U/L (7-40) Alkaline Phosphatase 138 U/L (46-116) Total Protein 2.8 g/dL (5.7-8.2) Albumin 1.3 g/dL (3.2-4.8) Blood Gas Specimen Type Arterial Blood Gas Sample Site Right brachial Blood Gas Patient Temperature 37.0 Arterial Blood Date Drawn [id number] Arterial Blood pH 6.943 (7.350-7.450) Arterial Blood Partial Pressure CO2 32.5 mmHg (32.0-45.0) Arterial Blood Partial Pressure O2 119.4 mmHg (83.0-108.0) Arterial Blood HCO3 6.9 mmol/L (21.0-28.0) Arterial Blood Oxygen Saturation 94.6 % (94.0-98.0) Arterial Blood Base Excess -24.0 mmol/L (-2.0-3.0) Arterial Blood Oxyhemoglobin 94.0 % (94.0-98.0) Arterial Blood Carboxyhemoglobin 0.1 % (0.5-1.5) Arterial Blood Methemoglobin 0.5 % (0.0-1.5) Benny Test Modified Blood Gas Total Hemoglobin 9.80 g/dL (12.0-16.0) Blood Gas Set Respiration Rate 26.0 Blood Gas Modality Vent - ac FiO2 % 45.0 Blood Gas Tidal Volume 300.0 Blood Gas PEEP or CPAP 5.0 Blood Gas Critical Value Read Back Yes Blood Gas Notified Whom Dr. hallie blackwood Blood Gas Notified Time [id number] Blood Gas Notified By White Blood Count 14.9 10^3/uL (4.4-10.8) Red Blood Count 2.92 10^6/uL (4.0-5.20) Hemoglobin 9.2 g/dL (12.2-16.2) Hematocrit 29.2 % (36.0-46.0) Mean Corpuscular Volume 100.1 fL (80.0-100.0) Mean Corpuscular Hemoglobin 31.4 pg (28.0-32.0) Mean Corpuscular Hemoglobin Concent 31.4 g/dL (32.0-36.0) Red Cell Distribution Width 15.4 % (11.8-14.3) Platelet Count 72 10^3/uL (140-450) Mean Platelet Volume 10.4 fL (6.9-10.8) Neutrophils (%) (Auto) % (37.0-80.0) Lymphocytes (%) (Auto) % (10.0-50.0) Monocytes (%) (Auto) % (0.0-12.0) Basophils (%) (Auto) % (0.0-2.0) Neutrophils # (Auto) 10 ^3/uL (1.6-8.6) Lymphocytes # (Auto) 10 ^3/uL (0.4-5.4) Monocytes # (Auto) 10 ^3/uL (0-1.3) Differential Total Cells Counted 100.0 (100) Neutrophils % (Manual) 63 (37.0-80.0) Band Neutrophils % (Manual) 10 Lymphocytes % (Manual) 15 (10.0-50.0) Monocytes % (Manual) 2 (0-12) Eosinophils % (Manual) 0 (0-7) Basophils % (Manual) 0 (0.0-2.0) Metamyelocytes % (manual) 2 Myelocytes % (Manual) 1 Promyelocytes % (Manual) 2 Blast Cells % (Manual) 5 Nucleated Red Blood Cells 6.0 % Reactive Lymphocytes 0 Platelet Estimate Decreased Test 04/23/25 00:15 04/22/25 02:54 04/21/25 13:40 04/21/25 11:26 Blood Gas Spontaneous Rate 26 Blood Gas Spontaneous Tidal Volume 312 Blood Gas Inspiratory Pressure 25.0 Bl Gas Inspiratory/Expiratory Ratio 1:2 Magnesium Level 2.5 mg/dL (1.6-2.6) Urine Creatinine 87.44 mg/dL (30.0-125.0) Urine Protein/Creatinine Ratio 0.76 Urine Sodium 21 mmol/L (40-220) Urine Total Protein 66.7 mg/dL (1-14) Troponin I High Sensitivity 14475 ng/L (</=34) Test 04/21/25 09:17 04/21/25 03:07 04/20/25 21:23 04/20/25 09:38 Phosphorus Level 9.8 mg/dL (2.4-5.1) Vitamin D 25-Hydroxy 27.2 ng/mL (30.0-100) Parathyroid Hormone (Intact) 771.6 pg/mL (18.4-80.1) Hepatitis B Surface Antigen Negative (Negative) Hepatitis C Antibody Negative (Negative) Eosinophils (%) (Auto) 0.2 % (0.0-7.0) Eosinophils # (Auto) 0 10 ^3/uL (0-0.8) Basophils # (Auto) 0.1 10 ^3/uL (0-0.2) B-Type Natriuretic Peptide 93.69 pg/mL (0-100) Random Vancomycin Level 17.0 ug/mL (5-10) Prothrombin Time 11.9 sec (9.3-11.8) Prothrombin Time INR 1.14 (0.9-1.15) Activated Partial Thromboplast Time 55.6 SEC (24.5-34.5) D-Dimer, Quantitative 24.88 mg/L FEU (0.0-0.49) Test 04/19/25 14:55 04/19/25 11:50 04/19/25 11:15 Lactic Acid Level 3.0 mmol/L (0.4-2.0) Hemoglobin A1c 13.3 % A1C (<5.7) Urine Color Colorless (Yellow) Urine Clarity Clear (Clear) Urine pH 6.5 (5.0-9.0) Urine Specific [place] 1.010 (1.001-1.035) Urine Protein 1+ (Negative) Urine Ketones Trace (Negative) Urine Blood 2+ /uL (Negative) Urine Nitrite Negative (Negative) Urine Bilirubin Negative (Negative) Urine Urobilinogen Normal mg/dL (Negative) Urine Leukocyte Esterase Negative /uL (Negative) Urine RBC 1 /hpf (0 - 4) Urine Microscopic WBC 9 /HPF (0-5) Urine Squamous Epithelial Cells None seen /hpf (<5) Urine Bacteria Few /hpf (None Seen) Urine Glucose 4+ mg/dL (Normal) Other Laboratory Tests 04/23/25 08:59 04/23/25 02:42 Brief Hx & Hospital Course: History of Present Illness Arianne Haskins is an 79-year-old female with past medical history of hypertension, hyperlipidemia, diabetes type 2, COPD, asthma, COVID-19, pneumonia, right upper lobe lung mass that was ruled out for lung cancer at [place], cataracts, left lung scarring, dementia, PTCA, BTL, and oophorectomy who presents to the ED after being found unconscious by has been at home. Patient was brought in by EMS and was given Narcan EN route with no response. Unable to obtain further information. Called spouse Sameer with contact number unlisted and unsuccessful. Course of hospitalization: Initial CT scan was negative for any acute pathology. Patient had worsening renal function, coming and uric. Cardiology hartley, patient was found to be in AFib with RVR with ST-depression in all precordial leads. Patient also had significant increase in troponin levels. Cardiology consultation was obtained. Left heart catheterization was held given worsening renal function as well as questionable neurological status. Patient also had worsening shock, probable cardiogenic and septic etiology. Patient was continued on empiric antibiotic therapy. Repeat CT scan was performed which showed severe cerebral edema with hemorrhaging as well as 7 mm shift. Long discussion was made with family members that was bedside regarding catastrophic findings on CAT scan of the brain. Patient was subsequently had cardiopulmonary arrest, with resuscitation efforts lasting for 3 minutes, one round of resuscitation efforts as requested by patient's next of kin. Family was bedside once patient was pronounced. Total time spent with patient discussing and formulating plan of care: 35 minutes. This medical document was created using an electronic medical record system with [employer] dictation system. Although this document has been carefully reviewed, there may still be some phonetic and typographical errors. These areas are purely typographical due to imperfections of the software programs, and do not reflect any compromise in the patient's medical care. Consults/Reason for consult Pulmonology: Ventilator management Cardiology: NSTEMI Nephrology: Acute kidney injury Condition at Discharge: Poor Final Diagnosis/Problems List Acute respiratory distress CVA Secondary diagnosis: -syncope with collapse -metabolic encephalopathy -acute hypoxic respiratory failure -NSTEMI,? Type 1 -probable acute systolic heart failure with ejection fraction 40% -acute kidney injury, vasomotor nephropathy -diabetes mellitus -hypertensive crisis -? Right upper lobe mass -atrial fibrillation with rapid ventricular rate Discharge Disposition: at Hospital [facility] Discharge Statement: "Patient was advised to return to the ER or call 911 if any headaches, dizziness, shortness of breath, chest pain, abdominal pain, bleeding, fevers, or worsening of medical condition. Patient was counseled about treatment plan, medications, possible side effects, patientverbalized understanding. All questions were answered to the best of my ability. This discharge took greater then 30 minutes in planning, reviewing documentation, counseling the patient, and discussing with other team members." ASSESSMENT ASSESSMENT Assessment Date of Service: Apr 23, 2025 Billing Provider: MILLICENT BLACKWOOD NP Common Visit Codes: 78233-HVS/OBS DISCH DAY >30min, [id number]-[id number] CARE 30-74 MIN MILLICENT BLACKWOOD NP Apr 23, 2025 13:36
--- NOTE | 2025-04-23 14:40 | RESUS ---
CODE BLUE ASSESSSMENT History of Events History of Events: Patient admitted to room 111 ICU status. Isaiah florez called due to asystole post Atropine doses with no response. Past medical history of hypertension, hyperlipidemia, diabetes type 2, COPD, asthma, COVID-19, pneumonia, right upper lobe lung mass that was ruled out for lung cancer at [place], cataracts, left lung scarring, dementia, PTCA, BTL, and oophorectomy who presented to the ED after being found unconscious at home. Initial CT Head negative. Repeat CT scan was performed which showed severe cerebral edema with hemorrhaging as well as 7 mm shift. Initial Information Date: Apr 23, 2025 Time: 13:05 Location of Arrest: ICU ([facility]) (111) Arrest Witnessed: Yes CPR started initial time: 11:05 CPR started by whom: Hospital Staff Type of arrest: Cardiac, Respiratory, Adult, Witnessed Spontaneous Respirations: No Pulse Present: No Monitoring: ECG, Pulse Oximetry, Capnography, Telemetry Crash Cart Opened and Supplies: Yes Airway Ventilation Breathing at Onset: Apneic Oxygen Delivery Method: Ambu-Bag Oxygen 15 liters Time of first Assisted Ventila: 13:05 Artificial Ventilation: Bag/Endo tube Intubation Size: 7.0 cuffed Intubated orally: Yes Tube secured at: 22 Confirmation: Auscultation Suctioning (Oral/Tracheal): No Circulation Circulation #1: Time: 13:05 Pulse Rate (adult): 0 Blood Pressure Systolic: 0 Blood Pressure Diastolic: 0 Circulation #2: Time: 13:09 Pulse Rate (adult): 0 Blood Pressure Systolic: 0 Blood Pressure Diastolic: 0 Medications & Response Medications and Responses : Medication Time: 13:06 ADULT Medications Given ADULT: Epinephrine 1 mg Route of Administration: IV Heart Rate: 0 EKG Rhythm: Asystole Blood Pressure Systolic: 0 Blood Pressure Diastolic: 0 Procedure - NG/OG Tube Procedure - NG/OG Tube : Type of gastric tube placed: OG Gastric Tube Location: Oral Tube Size: 16 Gastric Tube Suction Type/Desc: Low, Intermittant Gastric Content Description: Brown NG Tube Patency/Placement: Patent, Auscultated Comment NGT placed prior to code blue. Procedure - Central Venous Cat Central venous catheter site: Rt Femoral Comment: Central line was placed prior to code blue. Procedure - Gómez Catheter Urinary Catheter Type/Location: Uretheral (Gómez) Urinary Catheter Size: 16 Gómez Catheter Secured: Yes Comment: Gómez placed prior to code blue. No urine output noted. Nurses Notes [place] Coma Scale Eye Opening: None (1) [place] Coma Scale Verbal: None (1) [place] Coma Scale Motor: None (1) Glascow Total: 3 Pupil Reaction: Non Reactive EKG Rhythm: Asystole Nurses Notes - Comment: Multiple gtts infusing: Neosynephrine, Dopamine, Vasopressin, Epinephrine, Sodium Bicarb, and Levophed. See EMAR for infusion rates. Time Code Ended Time Code Ended: 13:09 Post Arrest Status: Outcome of code: Unsuccessful Patient pronounced by: Niranjan Che NP Time patient pronounced: 13:09 Family notified: Yes (Family at bedside.) Attending called: Yes Code Team Present: Dayne Che NP, Montserrat RT, Janna Cerrato RN, Clarita RN, Han RN, Matt RN, Nina RN Post Resuscitation Neurologica Pupil Size: 3 Comment: Fixed and dilated. Nina Patel Apr 23, 2025 14:39
--- NOTE | 2025-04-23 18:20 | DVHPN2 ---
Progress Note - Dictate Date Seen: Apr 23, 2025 Medical Necessity Reason Pt with a Central, PICC or Fol: No The following are medically ne: Central Line vital signs Vital Sign Date Time Temp Pulse Resp B/P (MAP) Pulse Ox O2 Delivery O2 Flow Rate FiO2 04/23/25 14:40 0 Ambu-Bag 0 04/23/25 13:10 29 63 04/23/25 13:00 93.6 200.5 04/23/25 12:00 45 45 Total Intake and Output 04/22/25 04/22/25 04/23/25 14:59 22:59 06:59 Intake Total 698.31 ml 1856.24 ml 2872.853 ml Output Total 30 ml 5 ml Balance 698.31 ml 1826.24 ml 2867.853 ml medications Current Medications Medications Dose Ordered Sig/Jorden Route Start Time Stop Time Status Last Admin Dose Admin Heparin Sodium/ Dextrose 250 ml @ 7.08 mls/hr Q24H IV 04/19/25 18:15 UNV Levofloxacin/ Dextrose 100 ml @ 100 mls/hr Q48H IV 04/21/25 08:30 Cancel laboratory and microbiology Laboratory Tests 04/23/25 08:59 04/23/25 02:42 Test 04/23/25 08:59 Range/Units Serum Glucose 233 H 74-106 mg/dL Assessment/Plan Impression Acute hypoxemic respiratory failure Altered mental status Elevated troponin NSTEMI Patient seen and examined in ICU Events On mechanical ventilation S/p intubation PEEP 5, FiO2 45% Patient declining abg metabolic acidosis Labs and imaging reviewed CT of the brain was obtained, report reviewed Loss of mendoza-white differentiation throughout the entire cerebrum is suspicious for diffuse cerebral edema. There are acute blood products in the right periventricular region which measures approximately 4 x 3.1 cm. There is prominent leftward midline shift of approximately 7 mm \ prognosis v poor family leaning towards comfort Management Vent support Titrate to maintain sats 90% or above Sedation for vent synchrony Continue antibiotics F/u cultures Bronchodilators Monitor renal function Monitor electrolytes Supplement as needed Pressors as needed for hemodynamic support To maintain a mean arterial pressure of 65 mmHg F/u cardiology Continue bicarb drip Prognosis very poor Family contemplating comfort measures DVT prophylaxis Critical care time 35 minutes Dietary Evaluation Review Comments: 1) Initiate Pro-Stat @ 30 mL qd 2) Initiate MVI @ 1 tb qd 3) If patient remains NPO > 7 days, consider EN/TPN to meet at least 75% of estimated daily needs 4) If GI route is preferred, consider Glucerna @ 35 mL/hr goal rate as tolerated. TF regimen (including Propofol and Pro-Stat) will provide 1482 kcals, 65g Pro, 676 mL free H2O per 24 hrs. Goal rate meets 100% estimated energy needs and ~70% estimated protein needs 5) Advance to 60g CCHO cardiac diet when medically feasible, pending ST approval 6) Follow-up with cardiology and neurology 7) Continue to monitor I&O, labs, and skin integrity Expected Outcomes/Goals: 1) patient to receive nutrition support within 7 days of NPO status 2) labs and wound to improve 3) diet to advance 4) f/u in 2-3 days Plan discussed with: Spouse ILDA PARIKH MD Apr 23, 2025 18:20
--- NOTE | 2025-04-24 00:24 | DVHEEG2 ---
Neurology EEG Procedural Note Procedural Note EXAM DATE: 04/22/2025 REFERRING DOCTOR: Dr. Mcdowell TECHNIQUE: Eighteen channels of EEG, 2 channels of EOG, and 1 channel of EKG were recorded using the [employer] 10/20 system. CLINICAL DATA: The patient was referred for an EEG evaluation for the evidence of seizure disorder. MEDICATIONS: See the chart BACKGROUND ACTIVITY: The record showed mixed very low amplitude delta and theta activity that was not reactive to external stimuli ACTIVATION: Hyperventilation: Not done Photic Stimulation: Not done Sleep: Nonresponsiveness IMPRESSION: This is a remarkably abnormal EEG, this EEG seen in severe cerebral dysfunction due to metabolic/hypoxic encephalopathy or medication effect, unless this caused by reversible etiology, this EEG suggestive of a poor prognosis for meaningful recovery, please correlate clinically The EKG channel showed a regular heart rate of 90/min[place] [address] SEEMA MCDOWELL MD Apr 24, 2025 00:24
== END 2025-04-23 17:37 | DRG 870 ==
LOC: EDBD 10:41 → ER 10:45 → OVERFLOW 11:25 → ICU WEST 04-20 05:41
PROVIDERS: ADMIT Nurse Practitioner Acute Care; ATTEND Nurse Practitioner Acute Care
PROC: 06HY33Z Insertion of Infusion Device into Lower Vein, Percutaneous Approach (ICD-10-PCS; principal; 2025-04-19)
PROC: 0BH17EZ Insertion of Endotracheal Airway into Trachea, Via Natural or Artificial Opening (ICD-10-PCS; 2025-04-19)
PROC: 5A1955Z Respiratory Ventilation, Greater than 96 Consecutive Hours (ICD-10-PCS; 2025-04-19)
PROC: 5A12012 Performance of Cardiac Output, Single, Manual (ICD-10-PCS; 2025-04-23)
PROC: 06HY33Z Insertion of Infusion Device into Lower Vein, Percutaneous Approach (ICD-10-PCS; 2025-04-23)
DX: A41.9 Sepsis, unspecified organism (principal); G93.41 Metabolic encephalopathy; J96.01 Acute respiratory failure with hypoxia; I21.4 Non-ST elevation (NSTEMI) myocardial infarction; N17.0 Acute kidney failure with tubular necrosis; I61.5 Nontraumatic intracerebral hemorrhage, intraventricular; R65.21 Severe sepsis with septic shock; I50.21 Acute systolic (congestive) heart failure; J15.69 Pneumonia due to other Gram-negative bacteria; J15.9 Unspecified bacterial pneumonia; J44.0 Chronic obstructive pulmonary disease with (acute) lower respiratory infection; E87.20 Acidosis, unspecified; N39.0 Urinary tract infection, site not specified; G93.1 Anoxic brain damage, not elsewhere classified; I13.0 Hypertensive heart and chronic kidney disease with heart failure and stage 1 through stage 4 chronic kidney disease, or unspecified chronic kidney disease; I16.9 Hypertensive crisis, unspecified; E11.65 Type 2 diabetes mellitus with hyperglycemia; I46.9 Cardiac arrest, cause unspecified; I48.91 Unspecified atrial fibrillation; F03.90 Unspecified dementia, unspecified severity, without behavioral disturbance, psychotic disturbance, mood disturbance, and anxiety; E83.42 Hypomagnesemia; N14.19 Nephropathy induced by other drugs, medicaments and biological substances; T36.8X5A Adverse effect of other systemic antibiotics, initial encounter; I25.10 Atherosclerotic heart disease of native coronary artery without angina pectoris; E78.5 Hyperlipidemia, unspecified; E11.40 Type 2 diabetes mellitus with diabetic neuropathy, unspecified; E87.5 Hyperkalemia; E11.22 Type 2 diabetes mellitus with diabetic chronic kidney disease; N18.9 Chronic kidney disease, unspecified; Z95.5 Presence of coronary angioplasty implant and graft; Z79.899 Other long term (current) drug therapy; Z88.0 Allergy status to penicillin; Z87.01 Personal history of pneumonia (recurrent); Z88.1 Allergy status to other antibiotic agents; Z79.2 Long term (current) use of antibiotics; Z79.82 Long term (current) use of aspirin; Z79.84 Long term (current) use of oral hypoglycemic drugs; Z98.51 Tubal ligation status; Z83.3 Family history of diabetes mellitus; Z82.5 Family history of asthma and other chronic lower respiratory diseases; Z82.49 Family history of ischemic heart disease and other diseases of the circulatory system; Z79.51 Long term (current) use of inhaled steroids; Z86.16 Personal history of COVID-19; Y92.89 Other specified places as the place of occurrence of the external cause
CPT/HCPCS: 31500; 32555; 36415; 36556; 36600; 70450; 71045; 72125; 76775; 80053; 80202; 81001; 82306; 82570; 82805; 82962; 83036; 83605; 83735; 83880; 83970; 84100; 84156; 84300; 84484; 85007; 85025; 85027; 85379; 85610; 85730; 86803; 87040; 87070; 87077; 87081; 87086; 87088; 87186; 87205; 87340; 92950; 93005; 93306; 94002; 94003; 94640; 95819; 99152; 99153; 99291; 99292; G0378; J0171; J0330; J1815; J2543; J2704; J3490